=== PATIENT | female | born 1980 | race American Indian/Alaskan Native ===

== ENCOUNTER 2017-06-26 10:13 | Emergency (ER) | payer MEDICAID, OTHER ==
[2017-06-26 10:14] VITALS: BMI 29.4
--- NOTE | 2017-06-26 10:46 | ED PDOC ---
Arrival/HPI - General Chief Complaint: Flu-like Symptoms Time Seen by Provider: 06/26/17 10:30 Historian: Patient - History of Present Illness Narrative History of Present Illness (Text): 06/26/17 10:45 A 37 year old female, whose past medical history includes hypertension, Gout and Fibroids, presents to the emergency department complaining of body aches, cough and congestion that developed last night, for the past 2 days. Patient reports to taking Ibuprofen about three hours ago. Patient notes sick contacts at home. Patient denies any shortness of breath or any other complaints at this time. Symptom Onset: Sudden Symptom Course: Unchanged Activities at Onset: Rest Context: Home Past Medical History - Provider Review Nursing Documentation Reviewed: Yes - Past History Past History: No Previous - Infectious Disease Hx of Infectious Diseases: None - Tetanus Immunization Tetanus Immunization: Unknown - Past Medical History Past Medical History: No Previous - Cardiac Hx Cardiac Disorders: Yes Hx Hypertension: Yes - Pulmonary Hx Respiratory Disorders: Yes Hx Bronchitis: Yes - Neurological Hx Neurological Disorder: No - HEENT Hx HEENT Disorder: No - Renal Hx Renal Disorder: No - Endocrine/Metabolic Hx Endocrine Disorders: No - Hematological/Oncological Hx Blood Disorders: Yes Hx Anemia: Yes - Integumentary Hx Dermatological Disorder: No - Musculoskeletal/Rheumatological Hx Musculoskeletal Disorders: No Hx Falls: No Hx Gout: Yes - Gastrointestinal Hx Gastrointestinal Disorders: Yes (gastritis) Hx Gastroesophageal Reflux: Yes - Genitourinary/Gynecological Hx Genitourinary Disorders: No Other/Comment: cyst 2 years ago on left ovary, fibroids - Psychiatric Hx Psychophysiologic Disorder: Yes Hx Depression: Yes Hx Physical Abuse: No Hx Substance Use: Yes (cocaine last night) Other/Comment: substance abuse - Past Surgical History Past Surgical History: No Previous - Surgical History Other/Comment: endoscopy dx with gastritis - Anesthesia Hx Anesthesia: Yes Hx Anesthesia Reactions: No Hx Malignant Hyperthermia: No - Suicidal Assessment Feels Threatened In Home Enviroment: No Family/Social History - Physician Review Nursing Documentation Reviewed: Yes Family/Social History: No Known Family HX Smoking Status: Heavy Smoker > 10 Cigarettes Daily Hx Alcohol Use: Yes (vodka last night til 3am) Hx Substance Use: Yes (cocaine last night) Substance used: cocaine Hx Substance Use Treatment: Yes Allergies/Home Meds Allergies/Adverse Reactions: Allergies coconut oil Allergy (Verified 06/26/17 10:27) ANAPHYLAXIS calixto Allergy (Verified 06/26/17 10:27) ANAPHYLAXIS Review of Systems - Physician Review All systems were reviewed & negative as marked: Yes - Review of Systems Constitutional: Other (body aches) ENT: Sinus Congestion Respiratory: Cough. absent: SOB Physical Exam Vital Signs Reviewed: Yes Vital Signs Temp Pulse Resp BP Pulse Ox 06/26/17 10:24 100.4 F H 95 H 18 121/72 100 Temperature: Febrile Blood Pressure: Normal Pulse: Regular Respiratory Rate: Normal Appearance: Positive for: Well-Appearing, Non-Toxic, Uncomfortable Pain Distress: None Mental Status: Positive for: Alert and Oriented X 3 - Systems Exam Head: Present: Atraumatic, Normocephalic Pupils: Present: PERRL Extroacular Muscles: Present: EOMI Conjunctiva: Present: Normal Mouth: Present: Moist Mucous Membranes Pharnyx: Present: Other (oropharynx slightly injected) Nose (Internal): Present: Other (moderate upper respiratory congestion) Neck: Present: Normal Range of Motion Respiratory/Chest: Present: Clear to Auscultation, Good Air Exchange. No: Respiratory Distress, Accessory Muscle Use Cardiovascular: Present: Regular Rate and Rhythm, Normal S1, S2. No: Murmurs Abdomen: Present: Normal Bowel Sounds. No: Tenderness, Distention, Peritoneal Signs Back: Present: Normal Inspection Upper Extremity: Present: Normal Inspection. No: Cyanosis, Edema Lower Extremity: Present: Normal Inspection. No: Edema Neurological: Present: GCS=15, CN II-XII Intact, Speech Normal Skin: Present: Warm, Dry, Normal Color. No: Rashes Psychiatric: Present: Alert, Oriented x 3, Normal Insight, Normal Concentration Medical Decision Making ED Course and Treatment: 06/26/17 10:43 Impression: A 37 year old female with body aches, cough and congestion. Plan: -- chest xray -- labs -- Motrin, Toradol -- Reassess and disposition Prior Visits: Notes and results from previous visits were reviewed. Patient was last seen in the emergency department on 06/09/16 for evaluation of upper abdominal pain and vomiting. Progress Notes: 06/26/17 13:33 chest xray Creator : Pedro Luis Weiss MD IMPRESSION: No interval acute cardiopulmonary disease appreciated. - Lab Interpretations Lab Results: Lab Results 06/26/17 10:30: Influenza Typ A,B (EIA) Negative for flu a/b I have reviewed the lab results: Yes - RAD Interpretation Radiology Orders: 06/26/17 12:31 CHEST TWO VIEWS (PA/LAT) [RAD] Stat - Medication Orders Current Medication Orders: Discontinued Medications Ibuprofen (Motrin Tab) 600 mg PO STAT STA Stop: 06/26/17 10:39 Last Admin: 06/26/17 11:07 Dose: 600 mg MAR Pain/Vitals Document 06/26/17 11:07 SE (Rec: 06/26/17 11:[address] [id number]) Pain Reassessment Is This A Pain ReAssessment? No Sleep Is patient sleeping during reassessment? No Presence of Pain Presence of Pain Yes Pain Scale Used Pain Scale Used Numeric Ketorolac Tromethamine (Toradol) 60 mg IM STAT STA Stop: 06/26/17 12:21 Last Admin: 06/26/17 12:21 Dose: 60 mg MAR Pain Assessment Document 06/26/17 12:21 SE (Rec: 06/26/17 12:[address] [id number]) Pain Reassessment Is this a pain reassessment? No Sleep Is patient sleeping during reassessment? No Presence of Pain Presence of Pain Yes IM Administration Charges Document 06/26/17 12:21 SE (Rec: 06/26/17 12:[address] [facility] [id number]) Injection Site MAR Injection Site Right Gluteus Medius Charges for Administration # of IM Administrations 1 - Scribe Statement The provider has reviewed the documentation as recorded by the David Hyman Provider Scribe Attestation: All medical record entries made by the Scribe were at my direction and personally dictated by me. I have reviewed the chart and agree that the record accurately reflects my personal performance of the history, physical exam, medical decision making, and the department course for this patient. I have also personally directed, reviewed, and agree with the discharge instructions and disposition. Disposition/Present on Arrival - Present on Arrival Any Indicators Present on Arrival: No History of DVT/PE: No History of Uncontrolled Diabetes: No Urinary Catheter: No History of Decub. Ulcer: No History Surgical Site Infection Following: None - Disposition Have Diagnosis and Disposition been Completed?: No Diagnosis: URI (upper respiratory infection), Myalgia Disposition: HOME/ ROUTINE Disposition Time: 14:10 Patient Plan: Discharge Condition: STABLE Prescriptions: Indomethacin [Indocin] 25 mg PO TID PRN #15 cap PRN Reason: Pain, Moderate (4-7) Promethazine DM [Phenergan DM Syrup] 10 ml PO TID PRN #120 ml PRN Reason: Cough And Congestion traMADol [Ultram] 50 mg PO TID PRN #15 tab PRN Reason: Pain, Moderate (4-7) Forms: [facility] (Persian)
--- NOTE | 2017-06-26 13:29 | RAD ---
HISTORY: cough COMPARISON: Portable chest 03/31/2016. TECHNIQUE: Chest PA and lateral FINDINGS: LUNGS: No active pulmonary disease. PLEURA: No significant pleural effusion identified. No pneumothorax apparent. CARDIOVASCULAR: Normal. OSSEOUS STRUCTURES: No significant abnormalities. VISUALIZED UPPER ABDOMEN: Normal. OTHER FINDINGS: None. IMPRESSION: No interval acute cardiopulmonary disease appreciated.
[2017-06-26 14:15] VITALS: BP 125/68; PULSE 91; RESP 16; TEMP 99.6; O2SAT 98
== END 2017-06-26 14:15 | disposition home or self-care (01) ==
LOC: ED 10:13
DX: J06.9 Acute upper respiratory infection, unspecified (principal); M79.1 Myalgia; I10 Essential (primary) hypertension; F17.210 Nicotine dependence, cigarettes, uncomplicated
CPT/HCPCS: 71046; 87804; 96372; 99284; J1885

== ENCOUNTER 2017-06-28 15:19 | Inpatient (IN) | payer MEDICAID, OTHER ==
[2017-06-28 15:59] VITALS: BMI 27.4
[2017-06-28] MEDS ORDERED: Sodium Chloride 0.9% 500 ML IV STA (16:49)
--- NOTE | 2017-06-28 17:00 | ED PDOC ---
Arrival/HPI - General Chief Complaint: Shortness Of Breath Time Seen by Provider: 06/28/17 16:04 - History of Present Illness Narrative History of Present Illness (Text): 06/28/17 17:00 Pt is a 37 yo female with PMH of hypertension, gout, fibroids presents to Emergency department due to body aches, cough, and congestion. Pt states that she was recently at [facility] Emergency department for similar symptoms. At that time , influenza A and B was negative. Patient was treated symptomatically and discharged. Pt states that she did not fill her prescribed medications because she had similar medicine already at home. Pt states that her symptoms have worsened over the last 2 days. Pt symptoms included cough, sinus congestion, sore throat, body aches, fever, and chills. Pt admits to recent sick contacts. Pt denied chest pain, shortness of breath, nausea, vomiting, abdominal pain, headache, or dizziness. Past Medical History - Past History Past History: No Previous - Infectious Disease Hx of Infectious Diseases: None - Tetanus Immunization Tetanus Immunization: Unknown - Past Medical History Past Medical History: No Previous - Cardiac Hx Cardiac Disorders: Yes Hx Hypertension: Yes - Pulmonary Hx Respiratory Disorders: Yes Hx Bronchitis: Yes - Neurological Hx Neurological Disorder: No - HEENT Hx HEENT Disorder: No - Renal Hx Renal Disorder: No - Endocrine/Metabolic Hx Endocrine Disorders: No - Hematological/Oncological Hx Blood Disorders: Yes Hx Anemia: Yes - Integumentary Hx Dermatological Disorder: No - Musculoskeletal/Rheumatological Hx Musculoskeletal Disorders: No Hx Falls: No Hx Gout: Yes - Gastrointestinal Hx Gastrointestinal Disorders: Yes (gastritis) Hx Gastroesophageal Reflux: Yes - Genitourinary/Gynecological Hx Genitourinary Disorders: No Other/Comment: cyst 2 years ago on left ovary, fibroids - Psychiatric Hx Psychophysiologic Disorder: Yes Hx Depression: Yes Hx Physical Abuse: No Hx Substance Use: Yes (cocaine last night) Other/Comment: substance abuse - Past Surgical History Past Surgical History: No Previous - Surgical History Other/Comment: endoscopy dx with gastritis - Anesthesia Hx Anesthesia: Yes Hx Anesthesia Reactions: No Hx Malignant Hyperthermia: No - Suicidal Assessment Feels Threatened In Home Enviroment: No Family/Social History Family/Social History: No Known Family HX Smoking Status: Heavy Smoker > 10 Cigarettes Daily Hx Alcohol Use: Yes (vodka last night til 3am) Hx Substance Use: Yes (cocaine last night) Substance used: cocaine Hx Substance Use Treatment: Yes Allergies/Home Meds Allergies/Adverse Reactions: Allergies coconut oil Allergy (Verified 06/26/17 10:27) ANAPHYLAXIS calixto Allergy (Verified 06/26/17 10:27) ANAPHYLAXIS Review of Systems - Review of Systems Constitutional: Fatigue, Fevers Eyes: Normal ENT: Sore Throat, Rhinorrhea, Sinus Congestion Respiratory: Cough, Sputum Cardiovascular: Normal Gastrointestinal: Normal Musculoskeletal: Arthralgias Skin: Normal Neurological: Normal Endocrine: Normal Hemo/Lymphatic: Normal Psychiatric: Normal Physical Exam Vital Signs Temp Pulse Resp BP Pulse Ox 06/28/17 16:56 102.7 F H 06/28/17 16:32 20 100 06/28/17 16:31 102.4 F H 90 20 126/80 100 Temperature: Febrile Mental Status: Positive for: Alert and Oriented X 3 - Systems Exam Head: Present: Atraumatic, Normocephalic Extroacular Muscles: Present: EOMI Conjunctiva: Present: Normal Ears: Present: Normal Mouth: Present: Dry Pharnyx: Present: ERYTHEMA. No: EXUDATE, TONSILS ENLARGED, Peritonsilar Swelling, Uvular Deviation Nose (Internal): Present: Rhinorrhea Neck: Present: Lymphadenopathy (anterior) Respiratory/Chest: Present: Clear to Auscultation. No: Respiratory Distress, Wheezes, Rales, Rhonchi Cardiovascular: Present: Regular Rate and Rhythm, Normal S1, S2. No: Murmurs, Rub, Gallop Abdomen: No: Tenderness, Distention, Rebound, Guarding Upper Extremity: Present: Normal Inspection Lower Extremity: Present: Normal Inspection Neurological: Present: GCS=15 Skin: Present: Warm, Dry, Normal Color Psychiatric: Present: Alert, Oriented x 3 Medical Decision Making ED Course and Treatment: 06/28/17 17:05 Assessment: 37 yo F presents to Emergency department with cough, congestion, and fever will be evaluated for possible flu infection. Plan: - CBC - CMP - Influenza A/B - IVF - CXR - Tylenol 06/28/17 17:07 EKG showed NSR. 06/28/17 18:38 Hgb 7.2. Patient consented to blood transfusion. Type and crossmatched 2 units. On further questioning, patient states that her h/o fibroids causes heavy menses. 02/16/18 18:44 Influenza A/B negative. 06/28/17 19:[address] Vicente, she will accept patient under hospitalist service. - Lab Interpretations Lab Results: 06/28/17 17:20 06/28/17 17:20 Lab Results 06/28/17 17:20: Sodium 140, Potassium 3.6, Chloride 105, Carbon Dioxide 24, Anion Gap 14, BUN 7, Creatinine 1.0, Est GFR ( Amer) > 60, Est GFR (Non- Af Amer) > 60, Random Glucose 89, Calcium 9.5, Total Bilirubin 0.2, AST 28, ALT 25, Alkaline Phosphatase 36 L, Total Protein 7.3, Albumin 3.9, Globulin 3.4, Albumin/Globulin Ratio 1.1 06/28/17 17:20: Influenza Typ A,B (EIA) Negative for flu a/b 06/28/17 17:20: WBC 3.7 L D, RBC 4.21, Hgb 7.2 L, Hct 26.0 L, MCV 61.8 L, MCH 17.1 L, MCHC 27.7 L, RDW 21.3 H, Plt Count 276, MPV 9.0, Gran % 41.4 L, Lymph % (Auto) 39.2 H, Prentiss % (Auto) 18.1 H, Eos % (Auto) 0.5 L, Baso % (Auto) 0.8, Gran # 1.51, Lymph # (Auto) 1.4, Prentiss # (Auto) 0.7 H, Eos # (Auto) 0.0, Baso # ( Auto) 0.03 - RAD Interpretation Radiology Orders: 06/28/17 17:08 CXR [CHEST PORTABLE] [RAD] Stat - Medication Orders Current Medication Orders: Oseltamivir Phosphate (Tamiflu Cap) 75 mg PO BID CATHY PRN Reason: Protocol Stop: 07/03/17 19:14 Discontinued Medications Acetaminophen (Tylenol 325mg Tab) 650 mg PO STAT STA Stop: 06/28/17 16:54 Last Admin: 06/28/17 19:21 Dose: Azithromycin (Zithromax) 500 mg PO STAT STA PRN Reason: Protocol Stop: 06/28/17 19:16 Sodium Chloride (Sodium Chloride 0.9%) 500 mls @ 999 mls/hr IV .Q31M STA Stop: 06/28/17 17:19 Last Admin: 06/28/17 17:20 Dose: 999 mls/hr eMAR Start Stop Document 06/28/17 17:20 RD (Rec: 06/28/17 19:20 RD [id number]) Intravenous Solution Start Date 06/28/17 Start Time 17:20 End Date 06/28/17 End time 18:20 Total Infusion Time 60 Disposition/Present on Arrival - Present on Arrival Any Indicators Present on Arrival: No History of DVT/PE: No History of Uncontrolled Diabetes: No Urinary Catheter: No History of Decub. Ulcer: No History Surgical Site Infection Following: None - Disposition Have Diagnosis and Disposition been Completed?: Yes Diagnosis: Symptomatic anemia, Acute bronchitis Disposition Time: 19:27 Patient Plan: Admission Condition: FAIR Referrals: PCP,NO [Primary Care Provider] - Follow up with primary Forms: [employer] (Citizen Of [place])
[2017-06-28 17:38] LABS: BASO # 0.03 K/mm3 (0.0-2.0); BASO % 0.8 % (0.0-3.0); EOS % 0.5 % (1.5-5.0); GRAN # 1.51 (1.4-6.5); GRAN % 41.4 % (50.0-68.0); HEMOGLOBIN 7.2 g/dL (12.0-16.0); LYMPH # 1.4 (1.2-3.4); LYMPH % 39.2 % (22.0-35.0); MEAN CELL VOLUME 61.8 fl (80.0-105.0); MEAN CORPUSCULAR HEMOGLOBIN 17.1 pg (25.0-35.0); MEAN CORPUSCULAR HGB CONC 27.7 g/dl (31.0-37.0); MONO # 0.7 (0.1-0.6); MONO % 18.1 % (1.0-6.0); RBC 4.21 10^6/uL (3.5-6.1); RED CELL DISTRIBUTION WIDTH 21.3 % (11.5-14.5); WHITE BLOOD COUNT 3.7 10^3/ul (4.5-11.0)
[2017-06-28 17:46] LABS: ALB/GLOB RATIO 1.1 (1.1-1.8); ALBUMIN 3.9 g/dL (3.0-4.8); ALT/SGPT 25 U/L (7-56); AST/SGOT 28 U/L (14-36); BLOOD UREA NITROGEN 7 mg/dL (7-21); CALCIUM 9.5 mg/dL (8.4-10.5); GFR AFRICAN-AMERICAN > 60; GFR NON-AFRICAN AMERICAN > 60
--- NOTE | 2017-06-28 18:58 | RAD ---
HISTORY: cough, congestion COMPARISON: No prior. FINDINGS: LUNGS: The interstitial markings are increased and coarsened with a few scattered peribronchial cuffing changes. Rule out sequela of reactive/ inflammatory where disease or viral illness. PLEURA: No significant pleural effusion identified, no pneumothorax apparent. CARDIOVASCULAR: Normal. OSSEOUS STRUCTURES: No significant abnormalities. VISUALIZED UPPER ABDOMEN: Normal. OTHER FINDINGS: None. IMPRESSION: The interstitial markings are increased and coarsened with a few scattered peribronchial cuffing changes. Rule out sequela of reactive/ inflammatory where disease or viral illness..
--- NOTE | 2017-06-28 20:54 | CP.PCM.HP ---
History of Present Illness - History of Present Illness History of Present Illness: This patient is a 37 year old female with a PMHx of HTN, Gout, Gastritis, and Fibroids, who presents complaining of worsening flu-like symptoms including generalized body aches, fevers, productive cough (yellow sputum), and shortness of breath. Patient presented to the ED with similar symptoms two days ago. Rapid Flu test was negative and patient was sent home with prescriptions for symptomatic treatment. Since then, her symptoms have worsen including worsening shortness of breath. Patient does admit to sick contacts, metrorrhagia, dysmenorrhea, increasing abdominal pain, and chest pain while coughing, and headache while coughing. She denies any nausea, vomiting, changes in bowel habits, blood in stool, melana, and urinary symptoms. ROS POSITIVES: generalized body aches, fevers, productive cough (yellow sputum), SOB, metrorrhagia, dysmenorrhea, inceasing abdominal pain, and chest pain while coughing. 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 Patient has been having 2 painful heavy periods a month for the past 3 months. Present on Admission - Present on Admission Any Indicators Present on Admission: No Review of Systems - Review of Systems Review of Systems: As per HPI Past Patient History - Infectious Disease Hx of Infectious Diseases: None - Tetanus Immunizations Tetanus Immunization: Unknown - Past Social History Smoking Status: Heavy Smoker > 10 Cigarettes Daily - CARDIAC Hx Cardiac Disorders: Yes Hx Hypertension: Yes - PULMONARY Hx Respiratory Disorders: Yes Hx Bronchitis: Yes - NEUROLOGICAL Hx Neurological Disorder: No - HEENT Hx HEENT Problems: No - RENAL Hx Chronic Kidney Disease: No - ENDOCRINE/METABOLIC Hx Endocrine Disorders: No - HEMATOLOGICAL/ONCOLOGICAL Hx Blood Disorders: Yes Hx Anemia: Yes - INTEGUMENTARY Hx Dermatological Problems: No - MUSCULOSKELETAL/RHEUMATOLOGICAL Hx Musculoskeletal Disorders: No Hx Falls: No Hx Gout: Yes - GASTROINTESTINAL Hx Gastrointestinal Disorders: Yes (gastritis) Hx Gastroesophageal Reflux: Yes - GENITOURINARY/GYNECOLOGICAL Hx Genitourinary Disorders: No Other/Comment: cyst 2 years ago on left ovary, fibroids - PSYCHIATRIC Hx Psychophysiologic Disorder: Yes Hx Depression: Yes Hx Physical Abuse: No Hx Substance Use: Yes (cocaine last night) Other/Comment: substance abuse - SURGICAL HISTORY Other/Comment: endoscopy dx with gastritis - ANESTHESIA Hx Anesthesia: Yes Hx Anesthesia Reactions: No Hx Malignant Hyperthermia: No Meds Allergies/Adverse Reactions: Allergies Allergy/AdvReac Type Severity Reaction Status Date / Time coconut oil Allergy ANAPHYLAXIS Verified 06/26/17 10:27 calixto Allergy ANAPHYLAXIS Verified 06/26/17 10:27 Physical Exam - Constitutional Appears: Toxic, In Acute Distress - Head Exam Head Exam: ATRAUMATIC, NORMAL INSPECTION, NORMOCEPHALIC - Eye Exam Eye Exam: EOMI, Normal appearance. absent: Scleral icterus - ENT Exam ENT Exam: Mucous Membranes Moist - Neck Exam Neck exam: Positive for: Lymphadenopathy - Respiratory Exam Respiratory Exam: Clear to Auscultation Bilateral. absent: Accessory Muscle Use , Decreased Breath Sounds, Rales, Rhonchi, Wheezes, Stridor - Cardiovascular Exam Cardiovascular Exam: RRR, +S1, +S2 - GI/Abdominal Exam GI & Abdominal Exam: Soft. absent: Tenderness - Extremities Exam Extremities exam: Positive for: normal capillary refill, pedal pulses present. Negative for: pedal edema - Neurological Exam Neurological exam: Alert, Oriented x3 - Psychiatric Exam Psychiatric exam: Normal Affect, Normal Mood - Skin Skin Exam: Dry, Intact, Normal Color, Warm Results - Vital Signs Recent Vital Signs: Last Vital Signs Temp 102.7 F H 06/28/17 16:56 Pulse 90 06/28/17 16:31 Resp 20 06/28/17 16:32 BP 126/80 06/28/17 16:31 Pulse Ox 100 06/28/17 16:32 - Labs Result Diagrams: 06/28/17 17:20 06/28/17 17:20 Assessment & Plan - Assessment and Plan (Free Text) Assessment: 37 year old female with a PMHx of HTN, Gout, Gastritis, and Fibroids, who presents complaining of worsening flu-like symptoms including generalized body aches, fevers, productive cough (yellow sputum), and shortness of breath. HgB in the ED was found 2 be 7.2. Admitted for evaluation and treatment of symptomatic anemia and influenza. Plan: Symptomatic Microcytic Anemia: Likely due to heavy menses 2 Units of PRBC's ordered in the ED Pre-transfusion Anemia studies show low Iron and Iron Sat. Consider starting Iron Supplementation post transfusion. Patient should up with [employer] outpatient to address fibroids and heavy/ irregular menses which is causing her anemia. NS @ 100/hr. Influenza CXR (Admission): The interstitial markings are increased and coarsened with a few scattered peribronchial cuffing changes. Rule out sequela of reactive/ inflammatory where disease or viral illness. Azithromycin 500 IV Daily Tamiflu BID. Consider stopping. May be no benefit due to symptoms for over 48 hours Tessalon Perles 100 PO TID for Cough Tylenol PRN Fluids - NS @ 100/hr Proph Protonix/SCD's Patient seen and discussed with Attending (Dr. Vicente) Dolores Valente, PGY1
[2017-06-28] MEDS ORDERED: Sodium Chloride 0.9% 1,000 ML IV SCH (21:15)
[2017-06-28 21:48] LABS: IRON 10 ug/dL (45-180)
[2017-06-28 21:58] LABS: % IRON SATURATION 2 % (20-55); TOTAL IRON BINDING CAPACITY 479 ug/dL (265-497)
[2017-06-29] MEDS: Pantoprazole 40 mg EC Tab PO SCH (06:09)
[2017-06-29 07:07] LABS: BASO # 0.04 K/mm3 (0.0-2.0); BASO % 0.8 % (0.0-3.0); EOS # 0.1 (0.0-0.7); EOS % 1.2 % (1.5-5.0); GRAN # 2.42 (1.4-6.5); GRAN % 50.3 % (50.0-68.0); HEMOGLOBIN 8.3 g/dL (12.0-16.0); LYMPH # 1.8 (1.2-3.4); LYMPH % 38.2 % (22.0-35.0); MEAN CELL VOLUME 65.8 fl (80.0-105.0); MEAN CORPUSCULAR HEMOGLOBIN 18.8 pg (25.0-35.0); MEAN CORPUSCULAR HGB CONC 28.6 g/dl (31.0-37.0); MONO # 0.5 (0.1-0.6); MONO % 9.5 % (1.0-6.0); RBC 4.41 10^6/uL (3.5-6.1); RED CELL DISTRIBUTION WIDTH 25.1 % (11.5-14.5); WHITE BLOOD COUNT 4.8 10^3/ul (4.5-11.0)
[2017-06-29 07:28] LABS: BLOOD UREA NITROGEN 9 mg/dL (7-21); GFR AFRICAN-AMERICAN > 60; GFR NON-AFRICAN AMERICAN > 60
[2017-06-29 07:29] LABS: ALBUMIN 3.3 g/dL (3.0-4.8); ALT/SGPT 28 U/L (7-56); AST/SGOT 28 U/L (14-36); CALCIUM 8.9 mg/dL (8.4-10.5)
[2017-06-29] MEDS ORDERED: Potassium Chloride 20 mEq ER Tab PO ONE (07:41)
[2017-06-29] MEDS: Albuterol-Ipratrop 3 mg / 0.5 (3 ml) UD IH SCH ×3 (08:27→21:00)
--- NOTE | 2017-06-29 10:10 | CARD ---
APPROVED REPORT EKG Measurement Heart [id number] <Conclusion> Normal sinus rhythm NSSTW changes No change
[2017-06-29 13:29] LABS: FOLATE 13.7 ng/mL
[2017-06-29 13:41] LABS: FERRITIN 7.6 ng/mL
--- NOTE | 2017-06-29 14:24 | CP.PCM.PN ---
<Nate Horton - Last Filed: 06/30/17 06:11> Subjective - Date & Time of Evaluation Date of Evaluation: 06/29/17 Time of Evaluation: 09:15 - Subjective Subjective: Patient seen and evaluated at bedside. States she returned to the ED for flu like symptoms that did not resolve, but worsened. Patient still admits to body aches, cough, abdominal pain associated with cough. Objective - Vital Signs/Intake and Output Vital Signs (last 24 hours): Temp Pulse Resp BP Pulse Ox 100.2 F H 60 20 142/95 H 99 06/29/17 07:30 06/29/17 07:30 06/29/17 07:30 06/29/17 07:30 06/29/17 07:30 Intake and Output: 06/29/17 06/29/17 06:59 18:59 Intake Total 685 325 Balance 685 325 - Medications Medications: Current Medications Acetaminophen (Tylenol 325mg Tab) 650 mg PO Q6H PRN PRN Reason: Fever >100.4 F Last Admin: 06/29/17 06:09 Dose: 650 mg Albuterol/Ipratropium (Duoneb 3 Mg/0.5 Mg (3 Ml) Ud) 3 ml IH [id number] [facility] Last Admin: 06/29/17 13:53 Dose: 3 ml Benzonatate (Tessalon Perles) 100 mg PO TID CATHY Last Admin: 06/29/17 11:17 Dose: 100 mg Azithromycin (Zithromax 500mg In Ns) 500 mg in 250 mls @ 167 mls/hr IVPB DAILY CATHY PRN Reason: Protocol Sodium Chloride (Sodium Chloride 0.9%) 1,000 mls @ 100 mls/hr IV .Q10H CATHY Ibuprofen (Motrin Tab) 600 mg PO Q6H PRN PRN Reason: Pain, moderate (4-7) Last Admin: 06/29/17 11:17 Dose: 600 mg Oseltamivir Phosphate (Tamiflu Cap) 75 mg PO BID CATHY PRN Reason: Protocol Stop: 07/03/17 19:14 Last Admin: 06/29/17 11:17 Dose: 75 mg Pantoprazole Sodium (Protonix Ec Tab) 40 mg PO 0600 [facility] Last Admin: 06/29/17 06:09 Dose: 40 mg - Labs Labs: 06/29/17 06:30 06/29/17 06:30 - Constitutional Appears: Non-toxic - Head Exam Head Exam: ATRAUMATIC, NORMAL INSPECTION, NORMOCEPHALIC - Eye Exam Eye Exam: EOMI, Normal appearance - ENT Exam ENT Exam: Mucous Membranes Moist, Normal Exam - Neck Exam Neck Exam: Normal Inspection - Respiratory Exam Respiratory Exam: Clear to Ausculation Bilateral, NORMAL BREATHING PATTERN. absent: Accessory Muscle Use, Chest Wall Tenderness, Decreased Breath Sounds, Rhonchi, Wheezes, Respiratory Distress, Stridor - Cardiovascular Exam Cardiovascular Exam: REGULAR RHYTHM, +S1, +S2 - GI/Abdominal Exam GI & Abdominal Exam: Soft, Normal Bowel Sounds. absent: Tenderness - Extremities Exam Extremities Exam: Normal Inspection - Back Exam Back Exam: NORMAL INSPECTION - Neurological Exam Neurological Exam: Alert, Awake, Oriented x3 - Psychiatric Exam Psychiatric exam: Normal Affect, Normal Mood - Skin Skin Exam: Intact, Normal Color, Warm Assessment and Plan - Assessment and Plan (Free Text) Assessment: 37 year old female with a PMHx of HTN, Gout, Gastritis, and Fibroids, who presents complaining of worsening flu-like symptoms including generalized body aches, fevers, productive cough (yellow sputum), and shortness of breath. HgB in the ED was found 2 be 7.2. Admitted for evaluation and treatment of symptomatic anemia and influenza. Plan: Symptomatic Microcytic Anemia: -Patient endorses a long history of anemia -Likely due to heavy menses -2 Units of PRBC's ordered in the ED -Pre-transfusion Anemia studies show low Iron and Iron Sat. -Will consider starting Iron Supplementation -Patient should up with [facility] outpatient to address fibroids and heavy/ irregular menses which is causing her anemia. Influenza -CXR reveals increase in lung interstitial markings as well as coarsening with a few scattered peribronchial cuffing changes. Rule out sequelae of reactive/ inflammatory where disease or viral illness. -Continue azithromycin 500 IV Daily -Tamiflu BID. Patient tested negative for rapid flu however still presents with flu like symptoms. Will continue tamiflu for now and await influenza A/B antibody test results -Continue with Tessalon Perles -Continue with tylenol PRN for body aches -NS@100/hr Proph Protonix/SCD's Patient seen and discussed with Dr. Cinthia Horton PGY1 <Fritz Vicente B - Last Filed: 06/30/17 18:13> Objective - Vital Signs/Intake and Output Vital Signs (last 24 hours): Temp Pulse Resp BP Pulse Ox 98 F 65 20 131/93 H 100 06/30/17 17:53 06/30/17 17:53 06/30/17 17:53 06/30/17 17:53 06/30/17 17:53 Intake and Output: 06/30/17 06/30/17 06:59 18:59 Intake Total 180 360 Balance 180 360 - Medications Medications: Current Medications Acetaminophen (Tylenol 325mg Tab) 650 mg PO Q6H PRN PRN Reason: Fever >100.4 F Last Admin: 06/29/17 22:34 Dose: 650 mg Albuterol/Ipratropium (Duoneb 3 Mg/0.5 Mg (3 Ml) Ud) 3 ml IH [id number] [facility] Last Admin: 06/30/17 14:25 Dose: Not Given Docusate Sodium (Colace) 100 mg PO DAILY [facility] Last Admin: 06/30/17 10:57 Dose: Not Given Ferrous Sulfate (Feosol) 324 mg PO BID [facility] Last Admin: 06/30/17 10:55 Dose: 324 mg Guaifenesin/Dextromethorphan (Robitussin Dm) 10 ml PO Q4H PRN PRN Reason: Cough Azithromycin (Zithromax 500mg In Ns) 500 mg in 250 mls @ 167 mls/hr IVPB DAILY CATHY PRN Reason: Protocol Last Admin: 06/30/17 10:59 Dose: 167 mls/hr Sodium Chloride (Sodium Chloride 0.9%) 1,000 mls @ 100 mls/hr IV .Q10H [facility] Oseltamivir Phosphate (Tamiflu Cap) 75 mg PO BID CATHY PRN Reason: Protocol Stop: 07/03/17 19:14 Last Admin: 06/30/17 10:55 Dose: 75 mg Pantoprazole Sodium (Protonix Ec Tab) 40 mg PO 0600 [facility] Last Admin: 06/30/17 05:26 Dose: 40 mg Tramadol HCl (Ultram) 50 mg PO TID [facility] Last Admin: 06/30/17 14:32 Dose: 50 mg - Labs Labs: 06/30/17 05:00 06/30/17 07:00 Attending/Attestation - Attestation I have personally seen and examined this patient.: Yes I have fully participated in the care of the patient.: Yes I have reviewed all pertinent clinical information, including history, physical exam and plan: Yes Notes (Text): I have seen and examined the patient at bedside. Agree with the above note with the following additions/ exceptions: Briefly this is 37 year old female with history of HTN, gout, gastritis, gout and fibroids who was admitted for evaluation of fever, cough, yellow mucous and dyspnea. There was no leukocytosis. Procal pending. Influenza negative. CXR revealed increase in lung interstitial markings as well as coarsening with a few scattered peribronchial cuffing changes. Continue robitussin, tamiflu and zithromax. Follow up on influenza titres. She also has microcytic anemia due to iron deficiency. Will start on po iron at the time of discharge. Upon discharge patient will follow up with obgyn and PMD of choice. Dr Fritz Vicente
[2017-06-29] MEDS: Azithromycin 500MG/NS 250ml 500 MG/250 ML BAG IVPB SCH (17:10)
[2017-06-29] MEDS ORDERED: guaiFENesin-Codeine 100-10mg/5ml Syrup (5 ml) UD PO STA (23:25)
[2017-06-30] MEDS: Pantoprazole 40 mg EC Tab PO SCH (05:26)
[2017-06-30 07:43] LABS: BASO # 0.03 K/mm3 (0.0-2.0); BASO % 0.5 % (0.0-3.0); EOS # 0.1 (0.0-0.7); EOS % 2.2 % (1.5-5.0); GRAN # 3.47 (1.4-6.5); GRAN % 57.7 % (50.0-68.0); HEMOGLOBIN 8.2 g/dL (12.0-16.0); LYMPH # 1.9 (1.2-3.4); LYMPH % 30.8 % (22.0-35.0); MEAN CELL VOLUME 65.7 fl (80.0-105.0); MEAN CORPUSCULAR HEMOGLOBIN 18.5 pg (25.0-35.0); MEAN CORPUSCULAR HGB CONC 28.2 g/dl (31.0-37.0); MEAN PLATELET VOLUME 9.3 fl (7.0-11.0); MONO # 0.5 (0.1-0.6); MONO % 8.8 % (1.0-6.0); RBC 4.43 10^6/uL (3.5-6.1); RED CELL DISTRIBUTION WIDTH 25.1 % (11.5-14.5)
[2017-06-30 07:47] VITALS: RESP 20
[2017-06-30] MEDS ORDERED: Potassium Chloride 20 mEq ER Tab PO ONE ×2 (07:47→10:54)
[2017-06-30 08:24] LABS: ALBUMIN 3.2 g/dL (3.0-4.8); ALT/SGPT 22 U/L (7-56); AST/SGOT 29 U/L (14-36); BLOOD UREA NITROGEN 7 mg/dL (7-21); CALCIUM 9.2 mg/dL (8.4-10.5); GFR AFRICAN-AMERICAN > 60; GFR NON-AFRICAN AMERICAN > 60
[2017-06-30] MEDS ORDERED: guaiFENesin DM 200 mg-20 mg/10 ml UD PO PRN ×2 (08:38→17:13)
--- NOTE | 2017-06-30 08:42 | CP.PCM.PN ---
<Nate Horton - Last Filed: 06/30/17 17:17> Subjective - Date & Time of Evaluation Date of Evaluation: 06/30/17 Time of Evaluation: 08:40 - Subjective Subjective: Patient seen and examined at bedside. Patient states her cough has become more productive, now producing clear sputum with a tinge of red. Patient states she has rib pain due to coughing. Admits to body aches, headaches. Denies nausea, vomiting, dysuria. Admits to constipation from home since Saturday. Patient's abdominal pain also due to menses which started overnight. Objective - Vital Signs/Intake and Output Vital Signs (last 24 hours): Temp Pulse Resp BP Pulse Ox 98.6 F 70 20 122/85 100 06/30/17 07:30 06/30/17 07:30 06/30/17 07:30 06/30/17 07:30 06/30/17 07:30 Intake and Output: 06/30/17 06/30/17 06:59 18:59 Intake Total 180 Balance 180 - Medications Medications: Current Medications Acetaminophen (Tylenol 325mg Tab) 650 mg PO Q6H PRN PRN Reason: Fever >100.4 F Last Admin: 06/29/17 22:34 Dose: 650 mg Albuterol/Ipratropium (Duoneb 3 Mg/0.5 Mg (3 Ml) Ud) 3 ml IH [id number] [facility] Last Admin: 06/29/17 21:00 Dose: Not Given Guaifenesin/Dextromethorphan (Robitussin Dm) 10 ml PO Q4H PRN PRN Reason: Cough Azithromycin (Zithromax 500mg In Ns) 500 mg in 250 mls @ 167 mls/hr IVPB DAILY CATHY PRN Reason: Protocol Last Admin: 06/29/17 17:10 Dose: 167 mls/hr Sodium Chloride (Sodium Chloride 0.9%) 1,000 mls @ 100 mls/hr IV .Q10H CATHY Ibuprofen (Motrin Tab) 600 mg PO Q6H PRN PRN Reason: Pain, moderate (4-7) Last Admin: 06/29/17 11:17 Dose: 600 mg Oseltamivir Phosphate (Tamiflu Cap) 75 mg PO BID CATHY PRN Reason: Protocol Stop: 07/03/17 19:14 Last Admin: 06/29/17 17:13 Dose: 75 mg Pantoprazole Sodium (Protonix Ec Tab) 40 mg PO 0600 [facility] Last Admin: 06/30/17 05:26 Dose: 40 mg - Labs Labs: 06/30/17 05:00 06/30/17 07:00 - Constitutional Appears: Non-toxic, No Acute Distress - Head Exam Head Exam: ATRAUMATIC, NORMAL INSPECTION, NORMOCEPHALIC - Eye Exam Eye Exam: EOMI, Normal appearance - ENT Exam ENT Exam: Mucous Membranes Moist - Neck Exam Neck Exam: Normal Inspection - Respiratory Exam Respiratory Exam: Clear to Ausculation Bilateral, NORMAL BREATHING PATTERN. absent: Accessory Muscle Use, Rales, Rhonchi, Wheezes, Respiratory Distress - Cardiovascular Exam Cardiovascular Exam: REGULAR RHYTHM, +S1, +S2 - GI/Abdominal Exam GI & Abdominal Exam: Soft, Normal Bowel Sounds - Back Exam Back Exam: NORMAL INSPECTION - Neurological Exam Neurological Exam: Alert, Awake, Oriented x3 - Psychiatric Exam Psychiatric exam: Normal Affect, Normal Mood - Skin Skin Exam: Intact, Normal Color, Warm Assessment and Plan - Assessment and Plan (Free Text) Assessment: 37 year old female with a PMHx of HTN, Gout, Gastritis, and Fibroids, who presents complaining of worsening flu-like symptoms including generalized body aches, fevers, productive cough (yellow sputum now clear with tinge ), and shortness of breath. HgB in the ED was found 2 be 7.2. Admitted for evaluation and treatment of symptomatic anemia and influenza. Plan: Iron deficiency anemia: -Patient endorses a long history of anemia -Likely due to heavy menses -2 Units of PRBC's ordered in the ED -Pre-transfusion Anemia studies show low Iron and Iron Sat. -Iron Supplementation started -Patient should up with [facility] outpatient to address fibroids and heavy/ irregular menses which is causing her anemia; patient currently menstruating Menstrual cramping -Tramadol started Influenza R/O -CXR reveals increase in lung interstitial markings as well as coarsening with a few scattered peribronchial cuffing changes. Rule out sequelae of reactive/ inflammatory where disease or viral illness. -Continue azithromycin 500 IV Daily -Tamiflu BID. Patient tested negative for rapid flu however still presents with flu like symptoms. Will continue tamiflu for now and await influenza A/B antibody test results -Robitussin started since no relief with tessalon perles. -Continue with tylenol PRN for body aches. Will refrain from motrin due to history of gastritis. -NS@100/hr Constipation -Will give colace and monitor Proph Protonix/SCD's Patient seen and discussed with Dr. Cinthia Horton PGY1 <Fritz Vicente - Last Filed: 06/30/17 18:15> Objective - Vital Signs/Intake and Output Vital Signs (last 24 hours): Temp Pulse Resp BP Pulse Ox 98 F 65 20 131/93 H 100 06/30/17 17:53 06/30/17 17:53 06/30/17 17:53 06/30/17 17:53 06/30/17 17:53 Intake and Output: 06/30/17 06/30/17 06:59 18:59 Intake Total 180 360 Balance 180 360 - Medications Medications: Current Medications Acetaminophen (Tylenol 325mg Tab) 650 mg PO Q6H PRN PRN Reason: Fever >100.4 F Last Admin: 06/29/17 22:34 Dose: 650 mg Albuterol/Ipratropium (Duoneb 3 Mg/0.5 Mg (3 Ml) Ud) 3 ml IH [id number] [facility] Last Admin: 06/30/17 14:25 Dose: Not Given Docusate Sodium (Colace) 100 mg PO DAILY [facility] Last Admin: 06/30/17 10:57 Dose: Not Given Ferrous Sulfate (Feosol) 324 mg PO BID [facility] Last Admin: 06/30/17 10:55 Dose: 324 mg Guaifenesin/Dextromethorphan (Robitussin Dm) 10 ml PO Q4H PRN PRN Reason: Cough Azithromycin (Zithromax 500mg In Ns) 500 mg in 250 mls @ 167 mls/hr IVPB DAILY CATHY PRN Reason: Protocol Last Admin: 06/30/17 10:59 Dose: 167 mls/hr Sodium Chloride (Sodium Chloride 0.9%) 1,000 mls @ 100 mls/hr IV .Q10H [facility] Oseltamivir Phosphate (Tamiflu Cap) 75 mg PO BID CATHY PRN Reason: Protocol Stop: 07/03/17 19:14 Last Admin: 06/30/17 10:55 Dose: 75 mg Pantoprazole Sodium (Protonix Ec Tab) 40 mg PO 0600 [facility] Last Admin: 06/30/17 05:26 Dose: 40 mg Tramadol HCl (Ultram) 50 mg PO TID [facility] Last Admin: 06/30/17 14:32 Dose: 50 mg - Labs Labs: 06/30/17 05:00 06/30/17 07:00 Attending/Attestation - Attestation I have personally seen and examined this patient.: Yes I have fully participated in the care of the patient.: Yes I have reviewed all pertinent clinical information, including history, physical exam and plan: Yes Notes (Text): I have seen and examined the patient at bedside. Agree with the above note with the following additions/ exceptions: Briefly this is 37 year old female with history of HTN, gout, gastritis, gout and fibroids who was admitted for evaluation of fever, cough, yellow mucous and dyspnea. There was no leukocytosis. Procal pending. Influenza negative. CXR revealed increase in lung interstitial markings as well as coarsening with a few scattered peribronchial cuffing changes. Patient states that she continues to have cough with purulent mucous. She was not able to sleep last night due to excessive coughing. Will do CT chest. Continue robitussin, tamiflu and zithromax. Follow up on influenza titres. She also has microcytic anemia due to iron deficiency. Will start on po iron at the time of discharge. Upon discharge patient will follow up with obgyn for menorrhagia and PMD of choice. Dr Fritz Vicente
[2017-06-30] MEDS ORDERED: guaiFENesin-Codeine 100-10mg/5ml Syrup (5 ml) UD PO PRN (08:46)
[2017-06-30] MEDS: Albuterol-Ipratrop 3 mg / 0.5 (3 ml) UD IH SCH ×3 (09:37→21:05)
[2017-06-30] MEDS: Azithromycin 500MG/NS 250ml 500 MG/250 ML BAG IVPB SCH (10:59)
[2017-06-30 11:06] LABS: BARBITURATES, UR NEGATIVE (NEGATIVE); BENZODIAZEPINES, UR NEGATIVE (NEGATIVE); OPIATES, UR POSITIVE (NEGATIVE); PHENCYCLIDINE, UR NEGATIVE (NEGATIVE)
[2017-06-30 11:17] LABS: PH,URINE 6.5 (4.7-8.0); URINE BILIRUBIN NEGATIVE (NEGATIVE); URINE BLOOD NEGATIVE (NEGATIVE); URINE GLUCOSE (UA) NEGATIVE (NEGATIVE); URINE LEUKOCYTE ESTERASE NEGATIVE Leu/uL (NEGATIVE); URINE NITRATE NEGATIVE (NEGATIVE); URINE PROTEIN TRACE mg/dL (<30 mg/dL)
[2017-06-30 11:27] LABS: URINE APPEARANCE SL CLOUDY (CLEAR); URINE COLOR YELLOW (YELLOW)
[2017-06-30 11:28] LABS: HCG,QUALITATIVE URINE NEGATIVE (NEGATIVE)
[2017-06-30 12:10] LABS: URINE RBC 0 - 2 /hpf (0-2); URINE WBC 0 - 2 /hpf (0-6)
[2017-06-30 12:11] LABS: URINE BACTERIA MOD (NEG)
--- NOTE | 2017-06-30 13:46 | CT ---
PROCEDURE: CT Chest without contrast HISTORY: flu symptoms COMPARISON: Chest radiograph dated 06/28/2017. Comparison also made with CTA of the chest dated 02/03/2014. . TECHNIQUE: Contiguous axial images were obtained through the chest without intravenous contrast enhancement. Sagittal and coronal reconstructions were performed. Radiation dose (DLP): 279 the comparison made with.18 mGy-cm. This CT exam was performed using one or more of the following dose reduction techniques: Automated exposure control, adjustment of the mA and/or kV according to patient size, and/or use of iterative reconstruction technique. FINDINGS: LUNGS: There are multiple varying size note relatively small nodular opacity seen throughout the right upper middle and lower lobes on. Findings could represent localized pneumonitis and or developing pneumonia. Mild left basilar passive/dependent type atelectasis with some linear scarring however left lung is otherwise clear. MEDIASTINUM: Heart size within range of normal. No significant pericardial effusion. Ascending thoracic aorta measures approximately 3.1 cm and descending thoracic aorta measures approximately 2.46 cm. Pulmonary trunk measures approximately 2.66 cm. No significant mediastinal adenopathy. Evaluation for hilar adenopathy is somewhat limited due to the lack of circulating intravenous contrast material. Central airways are midline and patent. No large central endoluminal lesions. PLEURA: No effusion. No evidence of pneumothorax BONES: Minor degenerative spondylosis the of the thoracic spine compression fractures at a several levels. No acute compression fractures no retropulsed fragments. UPPER ABDOMEN: Grossly unremarkable. OTHER FINDINGS: None. IMPRESSION: There are multiple varying size though relatively small nodular opacities seen scattered throughout the right upper middle and lower lobes. Findings may represent localized pneumonitis or developing infiltrates. No evidence of effusion or pneumothorax.
[2017-07-01] MEDS: Albuterol-Ipratrop 3 mg / 0.5 (3 ml) UD IH SCH ×3 (04:00→13:38)
--- NOTE | 2017-07-01 06:19 | CP.PCM.DIS ---
<Nate Horton - Last Filed: 07/02/17 02:23> Provider - Provider Date of Admission: 06/28/17 19:20 Attending physician: Fritz Vicente MD Primary care physician: NO PRIMARY CARE PROVIDER Time Spent in preparation of Discharge (in minutes): 45 Diagnosis - Discharge Diagnosis (1) Influenza Status: Acute (2) Acute bronchitis Status: Acute Hospital Course - Lab Results Lab Results: Most Recent Lab Values WBC 6.0 10^3/ul (4.5-11.0) D 06/30/17 05:00 RBC 4.43 10^6/uL (3.5-6.1) 06/30/17 05:00 Hgb 8.2 g/dL (12.0-16.0) L 06/30/17 05:00 Hct 29.1 % (36.0-48.0) L 06/30/17 05:00 MCV 65.7 fl (80.0-105.0) L 06/30/17 05:00 MCH 18.5 pg (25.0-35.0) L 06/30/17 05:00 MCHC 28.2 g/dl (31.0-37.0) L 06/30/17 05:00 RDW 25.1 % (11.5-14.5) H 06/30/17 05:00 Plt Count 231 10^3/uL (120.0-450.0) 06/30/17 05:00 MPV 9.3 fl (7.0-11.0) 06/30/17 05:00 Gran % 57.7 % (50.0-68.0) 06/30/17 05:00 Lymph % (Auto) 30.8 % (22.0-35.0) 06/30/17 05:00 [place] % (Auto) 8.8 % (1.0-6.0) H 06/30/17 05:00 Eos % (Auto) 2.2 % (1.5-5.0) 06/30/17 05:00 Baso % (Auto) 0.5 % (0.0-3.0) 06/30/17 05:00 Gran # 3.47 (1.4-6.5) 06/30/17 05:00 Lymph # (Auto) 1.9 (1.2-3.4) 06/30/17 05:00 [place] # (Auto) 0.5 (0.1-0.6) 06/30/17 05:00 Eos # (Auto) 0.1 (0.0-0.7) 06/30/17 05:00 Baso # (Auto) 0.03 K/mm3 (0.0-2.0) 06/30/17 05:00 Retic Count 0.57 % (0.5-1.5) 06/28/17 17:20 Sodium 143 mmol/L (132-148) 06/30/17 07:00 Potassium 3.9 mmol/L (3.6-5.0) 06/30/17 07:00 Chloride 110 mmol/L (98-107) H 06/30/17 07:00 Carbon Dioxide 23 mmol/L (21-33) 06/30/17 07:00 Anion Gap 14 (10-20) 06/30/17 07:00 BUN 7 mg/dL (7-21) 06/30/17 07:00 Creatinine 0.8 mg/dl (0.7-1.2) 06/30/17 07:00 Est GFR ( Amer) > 60 06/30/17 07:00 Est GFR (Non-Af Amer) > 60 06/30/17 07:00 Random Glucose 80 mg/dL (70-110) 06/30/17 07:00 Calcium 9.2 mg/dL (8.4-10.5) 06/30/17 07:00 Iron 10 ug/dL (45-180) L 06/28/17 17:20 TIBC 479 ug/dL (265-497) 06/28/17 17:20 % Saturation 2 % (20-55) L 06/28/17 17:20 Transferrin 381.31 mg/dL (206-381) H 06/28/17 17:20 Ferritin 7.6 ng/mL 06/28/17 17:20 Total Bilirubin 0.2 mg/dL (0.2-1.3) 06/30/17 07:00 AST 29 U/L (14-36) 06/30/17 07:00 ALT 22 U/L (7-56) 06/30/17 07:00 Alkaline Phosphatase 29 U/L (38-126) L 06/30/17 07:00 Troponin I < 0.01 ng/mL 06/29/17 00:20 Total Protein 6.4 g/dL (5.8-8.3) 06/30/17 07:00 Albumin 3.2 g/dL (3.0-4.8) 06/30/17 07:00 Globulin 3.2 gm/dL 06/30/17 07:00 Albumin/Globulin Ratio 1.0 (1.1-1.8) L 06/30/17 07:00 Vitamin B12 754 pg/mL (239-931) 06/28/17 17:20 Folate 13.7 ng/mL 06/28/17 17:20 Urine Color Yellow (YELLOW) 06/30/17 10:41 Urine Appearance Sl cloudy (CLEAR) 06/30/17 10:41 Urine pH 6.5 (4.7-8.0) 06/30/17 10:41 Ur Specific [place] 1.025 (1.005-1.035) 06/30/17 10:41 Urine Protein Trace mg/dL (<30 mg/dL) H 06/30/17 10:41 Urine Glucose (UA) Negative mg/dL (NEGATIVE) 06/30/17 10:41 Urine Ketones Negative mg/dL (NEGATIVE) 06/30/17 10:41 Urine Blood Negative (NEGATIVE) 06/30/17 10:41 Urine Nitrate Negative (NEGATIVE) 06/30/17 10:41 Urine Bilirubin Negative (NEGATIVE) 06/30/17 10:41 Urine Urobilinogen 1.0 E.U./dL (<1 E.U./dL) H 06/30/17 10:41 Ur Leukocyte Esterase Negative Humberto/uL (NEGATIVE) 06/30/17 10:41 Urine RBC 0 - 2 /hpf (0-2) 06/30/17 10:41 Urine WBC 0 - 2 /hpf (0-6) 06/30/17 10:41 Ur Epithelial Cells 10 - 12 /hpf (0-5) 06/30/17 10:41 Urine Bacteria Mod (NEG) 06/30/17 10:41 Urine HCG, Qual Negative (NEGATIVE) 06/30/17 10:41 Urine Opiates Screen Positive (NEGATIVE) H 06/30/17 10:41 Urine Methadone Screen Negative (NEGATIVE) 06/30/17 10:41 Ur Barbiturates Screen Negative (NEGATIVE) 06/30/17 10:41 Ur Phencyclidine Scrn Negative (NEGATIVE) 06/30/17 10:41 Ur Amphetamines Screen Negative (NEGATIVE) 06/30/17 10:41 U Benzodiazepines Scrn Negative (NEGATIVE) 06/30/17 10:41 U Oth Cocaine Metabols Negative (NEGATIVE) 06/30/17 10:41 U Cannabinoids Screen Negative (NEGATIVE) 06/30/17 10:41 Influenza Typ A,B (EIA) Negative for flu a/b (NEGATIVE) 06/28/17 17:20 Blood Type O POSITIVE 06/28/17 19:05 Antibody Screen Negative 06/28/17 19:05 Crossmatch See Detail 06/28/17 19:05 BBK History Checked Patient has bt 06/28/17 19:05 - Hospital Course Hospital Course: Patient is a 37 year old female with a history of iron deficiency anemia, uterine fibroids, cocaine abuse who presented with complaints of flu-like symptoms which included body aches, headaches, productive cough, and vomiting. Patient was originally admitted to the emergency department two days prior to being admitted to the hospital with similar symptoms which were not relieved with medication. During course of stay patient was found to be anemic, iron studies revealed iron deficiency anemia which was supplemented with iron supplements during course of hospital stay. Radioimaging revealed pneumonitis due to pneumonia. Rapid flu was performed which was negative. During course of hospital stay, patient's symptoms continued to improve. Patient endorsed left leg pain for which lower extremity doppler was ordered and negative for deep vein thrombosis. Patient was discharged on antibiotics and iron supplementation as well as instructed to follow up with her PMD and OBGYN regarding heavy menstrual bleeding and iron deficiency anemia. Importance of iron rich diet was also discussed. Patient was in agreement with plan and discharged. Case discussed and reviewed with Dr. Bravo Horton PGY1 Discharge Exam - Head Exam Head Exam: ATRAUMATIC, NORMAL INSPECTION, NORMOCEPHALIC - Eye Exam Eye Exam: EOMI, Normal appearance - ENT Exam ENT Exam: Mucous Membranes Moist - Neck Exam Neck exam: Normal Inspection - Respiratory Exam Respiratory Exam: Clear to PA & Lateral, NORMAL BREATHING PATTERN. absent: Rales, Rhonchi, Wheezes - Cardiovascular Exam Cardiovascular Exam: REGULAR RHYTHM, +S1, +S2 - GI/Abdominal Exam GI & Abdominal Exam: Normal Bowel Sounds, Unremarkable - Rectal Exam Rectal Exam: NORMAL INSPECTION - Neurological Exam Neurological exam: Alert, CN II-XII Intact, Oriented x3 - Psychiatric Exam Psychiatric exam: Normal Affect, Normal Mood - Skin Skin Exam: Intact, Normal Color, Warm Discharge Plan - Discharge Medications Prescriptions: Albuterol/Ipratropium [Duoneb 3 mg/0.5 mg (3 ml) UD] 3 ml IH [id number] #1 neb Azithromycin [Zithromax] 250 mg PO DAILY 4 Days #4 tab Docusate [Colace] 100 mg PO DAILY 14 Days #14 cap Ferrous Sulfate [Feosol] 324 mg PO BID 14 Days #28 ect guaiFENesin/Dextromethorphan [Robitussin DM] 10 ml PO Q4H PRN #1 bottle PRN Reason: Cough Oseltamivir [Tamiflu Cap] 75 mg PO BID 3 Days #6 cap Pantoprazole [Protonix EC Tab] 40 mg PO 0600 14 Days #14 ect - Follow Up Plan Condition: FAIR Disposition: HOME/ ROUTINE Instructions: Anemia of Chronic Disease, Smoking: Not Just Harmful to Your Lungs and Heart, Dangers of Secondhand Smoke, Flu, Adult (DC), Anemia Caused by Low Iron, Adult (DC), Pneumonia, Adult (DC), Influenza Virus Vaccine ( Recombinant) Additional Instructions: 1. Please follow up with your PMD within 3-5 days. 2. Please go to your pharmacy and fill prescriptions and take as prescribed. 3. Do not hesitate to return to the emergency department if symptoms worsen or return. 4. Chronic iron deficiency anemia will start iron supplement, also maintain an iron rich diet. 5. Follow up with OBGYN for menorrhagia Referrals: [facility] at [facility] [place] [Outside] <Sherman Cordon - Last Filed: 07/02/17 07:52> Provider - Provider Date of Admission: 06/28/17 19:20 Attending physician: Sherman Cordon MD Primary care physician: NO PRIMARY CARE PROVIDER Hospital Course - Lab Results Lab Results: Most Recent Lab Values WBC 4.3 10^3/ul (4.5-11.0) L D 07/01/17 07:15 RBC 4.26 10^6/uL (3.5-6.1) 07/01/17 07:15 Hgb 8.0 g/dL (12.0-16.0) L 07/01/17 07:15 Hct 27.8 % (36.0-48.0) L 07/01/17 07:15 MCV 65.3 fl (80.0-105.0) L 07/01/17 07:15 MCH 18.8 pg (25.0-35.0) L 07/01/17 07:15 MCHC 28.8 g/dl (31.0-37.0) L 07/01/17 07:15 RDW 25.4 % (11.5-14.5) H 07/01/17 07:15 Plt Count 204 10^3/uL (120.0-450.0) 07/01/17 07:15 MPV 9.1 fl (7.0-11.0) 07/01/17 07:15 Gran % 40.5 % (50.0-68.0) L 07/01/17 07:15 Lymph % (Auto) 47.7 % (22.0-35.0) H 07/01/17 07:15 [place] % (Auto) 9.3 % (1.0-6.0) H 07/01/17 07:15 Eos % (Auto) 1.6 % (1.5-5.0) 07/01/17 07:15 Baso % (Auto) 0.9 % (0.0-3.0) 07/01/17 07:15 Gran # 1.75 (1.4-6.5) 07/01/17 07:15 Lymph # (Auto) 2.1 (1.2-3.4) 07/01/17 07:15 [place] # (Auto) 0.4 (0.1-0.6) 07/01/17 07:15 Eos # (Auto) 0.1 (0.0-0.7) 07/01/17 07:15 Baso # (Auto) 0.04 K/mm3 (0.0-2.0) 07/01/17 07:15 Retic Count 0.57 % (0.5-1.5) 06/28/17 17:20 Sodium 141 mmol/L (132-148) 07/01/17 07:15 Potassium 3.9 mmol/L (3.6-5.0) 07/01/17 07:15 Chloride 107 mmol/L (98-107) 07/01/17 07:15 Carbon Dioxide 23 mmol/L (21-33) 07/01/17 07:15 Anion Gap 15 (10-20) 07/01/17 07:15 BUN 8 mg/dL (7-21) 07/01/17 07:15 Creatinine 0.7 mg/dl (0.7-1.2) 07/01/17 07:15 Est GFR ( Amer) > 60 07/01/17 07:15 Est GFR (Non-Af Amer) > 60 07/01/17 07:15 Random Glucose 91 mg/dL (70-110) 07/01/17 07:15 Calcium 9.0 mg/dL (8.4-10.5) 07/01/17 07:15 Iron 10 ug/dL (45-180) L 06/28/17 17:20 TIBC 479 ug/dL (265-497) 06/28/17 17:20 % Saturation 2 % (20-55) L 06/28/17 17:20 Transferrin 381.31 mg/dL (206-381) H 06/28/17 17:20 Ferritin 7.6 ng/mL 06/28/17 17:20 Total Bilirubin 0.3 mg/dL (0.2-1.3) 07/01/17 07:15 AST 26 U/L (14-36) 07/01/17 07:15 ALT 25 U/L (7-56) 07/01/17 07:15 Alkaline Phosphatase 27 U/L (38-126) L 07/01/17 07:15 Troponin I < 0.01 ng/mL 06/29/17 00:20 Total Protein 6.5 g/dL (5.8-8.3) 07/01/17 07:15 Albumin 3.3 g/dL (3.0-4.8) 07/01/17 07:15 Globulin 3.2 gm/dL 07/01/17 07:15 Albumin/Globulin Ratio 1.0 (1.1-1.8) L 07/01/17 07:15 Vitamin B12 754 pg/mL (239-931) 06/28/17 17:20 Folate 13.7 ng/mL 06/28/17 17:20 Urine Color Yellow (YELLOW) 06/30/17 10:41 Urine Appearance Sl cloudy (CLEAR) 06/30/17 10:41 Urine pH 6.5 (4.7-8.0) 06/30/17 10:41 Ur Specific [place] 1.025 (1.005-1.035) 06/30/17 10:41 Urine Protein Trace mg/dL (<30 mg/dL) H 06/30/17 10:41 Urine Glucose (UA) Negative mg/dL (NEGATIVE) 06/30/17 10:41 Urine Ketones Negative mg/dL (NEGATIVE) 06/30/17 10:41 Urine Blood Negative (NEGATIVE) 06/30/17 10:41 Urine Nitrate Negative (NEGATIVE) 06/30/17 10:41 Urine Bilirubin Negative (NEGATIVE) 06/30/17 10:41 Urine Urobilinogen 1.0 E.U./dL (<1 E.U./dL) H 06/30/17 10:41 Ur Leukocyte Esterase Negative Humberto/uL (NEGATIVE) 06/30/17 10:41 Urine RBC 0 - 2 /hpf (0-2) 06/30/17 10:41 Urine WBC 0 - 2 /hpf (0-6) 06/30/17 10:41 Ur Epithelial Cells 10 - 12 /hpf (0-5) 06/30/17 10:41 Urine Bacteria Mod (NEG) 06/30/17 10:41 Urine HCG, Qual Negative (NEGATIVE) 06/30/17 10:41 Urine Opiates Screen Positive (NEGATIVE) H 06/30/17 10:41 Urine Methadone Screen Negative (NEGATIVE) 06/30/17 10:41 Ur Barbiturates Screen Negative (NEGATIVE) 06/30/17 10:41 Ur Phencyclidine Scrn Negative (NEGATIVE) 06/30/17 10:41 Ur Amphetamines Screen Negative (NEGATIVE) 06/30/17 10:41 U Benzodiazepines Scrn Negative (NEGATIVE) 06/30/17 10:41 U Oth Cocaine Metabols Negative (NEGATIVE) 06/30/17 10:41 U Cannabinoids Screen Negative (NEGATIVE) 06/30/17 10:41 Influenza Typ A,B (EIA) Negative for flu a/b (NEGATIVE) 06/28/17 17:20 Blood Type O POSITIVE 06/28/17 19:05 Antibody Screen Negative 06/28/17 19:05 Crossmatch See Detail 06/28/17 19:05 BBK History Checked Patient has bt 06/28/17 19:05 Attending/Attestation - Attestation I have personally seen and examined this patient.: Yes I have fully participated in the care of the patient.: Yes I have reviewed all pertinent clinical information, including history, physical exam and plan: Yes Notes (Text): 07/02/17 07:45 Attending note ; Patient seen and examined with resident. Patient is a 37 year old female with history of hypertension, gout, gastritis, anemia and fibroids who was admitted for evaluation of fever, cough, yellow mucous and dyspnea. Influenza negative. CXR revealed increase in lung interstitial markings as well as coarsening with a few scattered peribronchial cuffing changes. CT chest showed localized pneumonitis . Currently patient is afebrile and nontoxic . Ambulating without difficulty .not on oxygen .tolerating diet well . Treated with robitussin, tamiflu , rocephin and zithromax. She also has microcytic anemia due to iron deficiency. Started on by mouth iron. Needs outpatient [facility] follow-up.
[2017-07-01] MEDS: Pantoprazole 40 mg EC Tab PO SCH (06:26)
[2017-07-01 07:25] LABS: BASO # 0.04 K/mm3 (0.0-2.0); BASO % 0.9 % (0.0-3.0); EOS # 0.1 (0.0-0.7); EOS % 1.6 % (1.5-5.0); GRAN # 1.75 (1.4-6.5); GRAN % 40.5 % (50.0-68.0); LYMPH # 2.1 (1.2-3.4); LYMPH % 47.7 % (22.0-35.0); MEAN CELL VOLUME 65.3 fl (80.0-105.0); MEAN CORPUSCULAR HEMOGLOBIN 18.8 pg (25.0-35.0); MEAN CORPUSCULAR HGB CONC 28.8 g/dl (31.0-37.0); MEAN PLATELET VOLUME 9.1 fl (7.0-11.0); MONO # 0.4 (0.1-0.6); MONO % 9.3 % (1.0-6.0); RBC 4.26 10^6/uL (3.5-6.1); RED CELL DISTRIBUTION WIDTH 25.4 % (11.5-14.5); WHITE BLOOD COUNT 4.3 10^3/ul (4.5-11.0)
[2017-07-01 07:54] LABS: ALBUMIN 3.3 g/dL (3.0-4.8); ALT/SGPT 25 U/L (7-56); AST/SGOT 26 U/L (14-36); BLOOD UREA NITROGEN 8 mg/dL (7-21); GFR AFRICAN-AMERICAN > 60; GFR NON-AFRICAN AMERICAN > 60
[2017-07-01 08:52] VITALS: BP 119/78; PULSE 68; TEMP 98.6; O2SAT 100
--- NOTE | 2017-07-01 09:55 | US ---
PROCEDURE: Right lower extremity venous US HISTORY: Leg pain and swelling. Evaluate for DVT. PHYSICIAN(S): Iban Dave M.D. TECHNIQUE: Duplex sonography and color-flow Doppler with graded compression were used to evaluate the deep venous system of the right lower extremity. FINDINGS: The visualized deep venous system of the right lower extremity is sonographically normal and compressible. Normal waveforms and augmentation are seen. There is no sonographic evidence for deep venous thrombosis in the visualized segments of the right lower extremity. IMPRESSION: 1. No sonographic evidence for deep venous thrombosis in the visualized segments of the right lower extremity.
[2017-07-01] MEDS: Azithromycin 500MG/NS 250ml 500 MG/250 ML BAG IVPB SCH (10:03)
== END 2017-07-01 15:23 | disposition home or self-care (01) | DRG 90 ==
LOC: ED 15:19 → ERH 19:20 → 5RNO 22:41
PROVIDERS: ADMIT Hospitalist; ATTEND Internal Medicine
PROC: 30233N1 Transfusion of Nonautologous Red Blood Cells into Peripheral Vein, Percutaneous Approach (ICD-10-PCS; principal; 2017-06-28)
DX: J11.00 Influenza due to unidentified influenza virus with unspecified type of pneumonia (principal); J20.9 Acute bronchitis, unspecified; D50.9 Iron deficiency anemia, unspecified; K59.00 Constipation, unspecified; K21.9 Gastro-esophageal reflux disease without esophagitis; I10 Essential (primary) hypertension; D25.9 Leiomyoma of uterus, unspecified; M10.9 Gout, unspecified; K29.70 Gastritis, unspecified, without bleeding; N92.0 Excessive and frequent menstruation with regular cycle; Z87.891 Personal history of nicotine dependence

== ENCOUNTER 2018-01-02 07:04 | Emergency (ER) | payer MEDICAID ==
[2018-01-02 07:05] VITALS: BMI 27.4
[2018-01-02 07:46] VITALS: RESP 17
[2018-01-02 07:54] LABS: BASO # 0.04 K/mm3 (0.0-2.0); BASO % 0.6 % (0.0-3.0); EOS # 0.1 (0.0-0.7); EOS % 1.8 % (1.5-5.0); GRAN # 3.68 (1.4-6.5); GRAN % 55.1 % (50.0-68.0); LYMPH # 2.2 (1.2-3.4); LYMPH % 33.1 % (22.0-35.0); MEAN CELL VOLUME 62.6 fl (80.0-105.0); MEAN CORPUSCULAR HEMOGLOBIN 18.1 pg (25.0-35.0); MEAN PLATELET VOLUME 9.5 fl (7.0-11.0); MONO # 0.6 (0.1-0.6); MONO % 9.4 % (1.0-6.0); RBC 4.41 10^6/uL (3.5-6.1); RED CELL DISTRIBUTION WIDTH 21.2 % (11.5-14.5); WHITE BLOOD COUNT 6.7 10^3/ul (4.5-11.0)
[2018-01-02 08:00] LABS: ALB/GLOB RATIO 1.3 (1.1-1.8); ALBUMIN 4.2 g/dL (3.0-4.8); ALT/SGPT 19 U/L (7-56); AST/SGOT 55 U/L (14-36); BLOOD UREA NITROGEN 16 mg/dL (7-21); CALCIUM 9.4 mg/dL (8.4-10.5); GFR NON-AFRICAN AMERICAN > 60; LIPASE 103 U/L (23-300)
--- NOTE | 2018-01-02 08:06 | ED PDOC ---
Arrival/HPI - General Chief Complaint: GI Problem Time Seen by Provider: 01/02/18 07:17 Historian: Patient - History of Present Illness Narrative History of Present Illness (Text): 01/02/18 07:20 A 37 year old female, whose past medical history includes anemia, hypertension, gout, and fibroids, presents to the emergency department complaining of lower abdominal pain with nausea/vomiting starting approximately 9 hours ago. Patient reports taking Motrin 800 mg, but has had no relief of symptoms. She mentions also experiencing lower back pain, stating having associated "shocking stabs of pain radiating from lower back down to lower extremities." Patient denies any hematuria, dysuria, vaginal discharge/bleeding, any urinary symptoms, or any other complaints at this time. No PMD Time/Duration: Other (symptoms began approximately 9 hours ago.) Symptom Onset: Sudden Symptom Course: Unchanged Past Medical History - Provider Review Nursing Documentation Reviewed: Yes - Past History Past History: No Previous - Infectious Disease Hx of Infectious Diseases: None - Tetanus Immunization Tetanus Immunization: Unknown - Past Medical History Past Medical History: No Previous - Cardiac Hx Cardiac Disorders: Yes Hx Hypertension: Yes - Pulmonary Hx Respiratory Disorders: Yes Hx Bronchitis: Yes - Neurological Hx Neurological Disorder: No - HEENT Hx HEENT Disorder: No - Renal Hx Renal Disorder: No - Endocrine/Metabolic Hx Endocrine Disorders: No - Hematological/Oncological Hx Blood Disorders: Yes Hx Anemia: Yes - Integumentary Hx Dermatological Disorder: No - Musculoskeletal/Rheumatological Hx Musculoskeletal Disorders: Yes Hx Gout: Yes - Gastrointestinal Hx Gastrointestinal Disorders: Yes Hx Gastroesophageal Reflux: Yes - Genitourinary/Gynecological Hx Genitourinary Disorders: No Other/Comment: cyst 2 years ago on left ovary, fibroids - Psychiatric Hx Psychophysiologic Disorder: Yes Hx Depression: Yes Hx Substance Use: No Other/Comment: substance abuse - Past Surgical History Past Surgical History: No Previous - Surgical History Other/Comment: endoscopy dx with gastritis - Anesthesia Hx Anesthesia: Yes Hx Anesthesia Reactions: No Hx Malignant Hyperthermia: No - Suicidal Assessment Feels Threatened In Home Enviroment: No Family/Social History - Physician Review Nursing Documentation Reviewed: Yes Family/Social History: No Known Family HX Smoking Status: Heavy Smoker > 10 Cigarettes Daily Hx Alcohol Use: Yes Frequency of alcohol use: Socially Hx Substance Use: No Substance used: cocaine Hx Substance Use Treatment: Yes Allergies/Home Meds Allergies/Adverse Reactions: Allergies coconut oil Allergy (Verified 01/02/18 07:14) ANAPHYLAXIS calixto Allergy (Verified 01/02/18 07:14) ANAPHYLAXIS Review of Systems - Physician Review All systems were reviewed & negative as marked: Yes - Review of Systems Gastrointestinal: Abdominal Pain (lower region), Nausea, Vomiting Genitourinary Female: absent: Dysuria, Frequency, Hematuria, Urine Output Changes, Vaginal Bleeding, Vaginal Discharge Musculoskeletal: Back Pain (lower region, mentions experiencing "shocking stabs of pain radiating from lower back down to lower extremities.") Physical Exam - Physical Exam Narrative Physical Exam (Text): Gen: VS reviewed, alert, well developed, well nourished, nontoxic, mild distress. ENT: normal pharynx. Eye: EOMI, PERRL. Neck: no JVD, supple, no adenopathy. CV: regular rate, regular rhythm, no rubs, no murmur, no gallops, S1, S2, pulses equal and strong. Pulm: no distress, clear to auscultation, no wheeze, no rhonchi, breath sounds equal, no rales. Abd: diffuse lower abdominal tenderness, with guarding, no rebound, no rigidity , normal bowel sounds. Ext: no edema. Skin: good color, no rash, no cyanosis. Psych: responds appropriately to questions, normal affect. Neuro: oriented x 3, CN2-12 intact grossly, motor intact, sensation intact. Back: no CVA tenderness. Vital Signs Reviewed: Yes Vital Signs Temp Pulse Resp BP Pulse Ox 01/02/18 09:45 96 H 17 136/88 98 01/02/18 07:36 99.4 F 104 H 17 144/96 H 100 Temperature: Afebrile Blood Pressure: Normal Pulse: Regular Respiratory Rate: Normal Appearance: Positive for: Uncomfortable Pain Distress: Moderate Mental Status: Positive for: Alert and Oriented X 3 Medical Decision Making ED Course and Treatment: 01/02/18 07:25 Impression: 37 [place] old female with lower abdominal pain with nausea/vomiting. Physical exam shows diffuse lower abdominal tenderness with guarding, no rebound /rigidity; no CVA tenderness; no other acute findings on examination. Plan: -- Transvaginal Ultrasound -- Labs -- POC urine Test -- Tylenol -- Toradol -- Zofran -- Urinalysis -- Reassess and disposition Prior Visits: Notes and results from previous visits were reviewed. Patient was last seen in the emergency department on 06/28/2017 for body aches, cough, and congestion. Patient was admitted for symptomatic anemia and acute bronchitis. Progress Notes: 01/02/2018 10:19 Transvaginal Ultrasound IMPRESSION: 1. Mildly enlarged fibroid uterus with non submucous in location. All appear sub serosal with some pedunculated. 2. 1.4 cm right adnexal paraovarian cyst. Dictator: Pedro Luis Woodward MD 01/02/2018 10:49 Abd/Pelvis CT IMPRESSION: No evidence of urolithiasis. No acute intra-abdominal findings. Dictator: Anmol Hernandez MD 01/02/18 11:44 patient feels ok for discharge and appears stable for dc. will tx for uti. patient informed to follow up with customer service dispatcher for further eval of uterine fibroids. patient understands and is agreeable to plan. - Lab Interpretations Lab Results: 01/02/18 07:25 01/02/18 07:25 Lab Results 01/02/18 09:00: Urine Opiates Screen Negative, Urine Methadone Screen Negative, Ur Barbiturates Screen Negative, Ur Phencyclidine Scrn Negative, Ur Amphetamines Screen Negative, U Benzodiazepines Scrn Negative, U Oth Cocaine Metabols Negative, U Cannabinoids Screen Negative 01/02/18 07:25: Urine Color Red, Urine Appearance Bloody, Urine pH 7.0, Ur Specific [place] 1.010, Urine Protein >=300 H, Urine Glucose (UA) Negative, Urine Ketones Trace H, Urine Blood Large H, Urine Nitrate Positive H, Urine Bilirubin Negative, Urine Urobilinogen 1.0 H, Ur Leukocyte Esterase Moderate H, Urine RBC 25 - 30, Urine WBC 10 - 15, Ur Epithelial Cells 6 - 8, Urine Bacteria Many, Urine Other [place] 01/02/18 07:25: Sodium 141, Potassium 4.4, Chloride 106, Carbon Dioxide 24, Anion Gap 15, BUN 16, Creatinine 0.8, Est GFR ( Amer) > 60, Est GFR (Non- Af Amer) > 60, Random Glucose 102, Calcium 9.4, Total Bilirubin 0.4, AST 55 H D , ALT 19, Alkaline Phosphatase 34 L D, Total Protein 7.5, Albumin 4.2, Globulin 3.3, Albumin/Globulin Ratio 1.3, Lipase 103 01/02/18 07:25: WBC 6.7 D, RBC 4.41, Hgb 8.0 L, Hct 27.6 L, MCV 62.6 L, MCH 18.1 L, MCHC 29.0 L, RDW 21.2 H, Plt Count 298, MPV 9.5, Gran % 55.1, Lymph % ( Auto) 33.1, [place] % (Auto) 9.4 H, Eos % (Auto) 1.8, Baso % (Auto) 0.6, Gran # 3.68, Lymph # (Auto) 2.2, [place] # (Auto) 0.6, Eos # (Auto) 0.1, Baso # (Auto) 0.04 I have reviewed the lab results: Yes - RAD Interpretation Radiology Orders: 01/02/18 07:44 TRANSVAGINAL [US] Stat 01/02/18 09:52 ABDOMEN & PELVIS [ABD & PELVIS W/O PO OR IV CONT] [CT] Stat - Medication Orders Current Medication Orders: Discontinued Medications Acetaminophen (Tylenol 325mg Tab) 975 mg PO STAT STA Stop: 01/02/18 07:45 Last Admin: 01/02/18 07:49 Dose: 975 mg MAR Pain/Vitals Document 01/02/18 07:49 [facility] (Rec: 01/02/18 07:50 [facility] [id number]) Pain Reassessment Is This A Pain ReAssessment? No Sleep Is patient sleeping during reassessment? No Presence of Pain Presence of Pain Yes Pain Scale Used Pain Scale Used Numeric Location Left, Right or Bilateral Bilateral Upper or Lower Lower Pain Location Body Site Abdomen Description Cramping Intensity 5 Scale Used Numeric Fluconazole (Diflucan) 150 mg PO STAT STA PRN Reason: Protocol Stop: 01/02/18 10:17 Last Admin: 01/02/18 11:02 Dose: 150 mg Ketorolac Tromethamine (Toradol) 30 mg IVP STAT STA Stop: 01/02/18 07:45 Last Admin: 01/02/18 07:50 Dose: 30 mg MAR Pain Assessment Document 01/02/18 07:50 [facility] (Rec: 01/02/18 07:50 [facility] [id number]) Pain Reassessment Is this a pain reassessment? No Sleep Is patient sleeping during reassessment? No Presence of Pain Presence of Pain Yes Pain Scale Used Pain Scale Used Numeric Location Left, Right or Bilateral Bilateral Upper or Lower Lower Pain Location Body Site Abdomen Description Description Cramping Intensity of Pain at present 5 IVP Administration Document 01/02/18 07:50 [facility] (Rec: 01/02/18 07:50 [facility] [id number]) Charges for Administration # of IVP Administrations 1 Ondansetron HCl (Zofran Inj) 4 mg IVP STAT STA Stop: 01/02/18 07:43 Last Admin: 01/02/18 07:57 Dose: 4 mg IVP Administration Document 01/02/18 07:57 [facility] (Rec: 01/02/18 07:57 [facility] [id number]) Charges for Administration # of IVP Administrations 1 Oxycodone/Acetaminophen (Percocet 5/325 Mg Tab) 2 tab PO STAT STA Stop: 01/02/18 09:52 Last Admin: 01/02/18 10:18 Dose: 2 tab MAR Pain Assessment Document 01/02/18 10:18 [facility] (Rec: 01/02/18 10:18 [facility] [id number]) Pain Reassessment Is this a pain reassessment? Yes Sleep Is patient sleeping during reassessment? Yes Pain Scale Used Pain Scale Used Numeric Location Left, Right or Bilateral Bilateral Upper or Lower Lower Pain Location Body Site Abdomen Description Description Constant Intensity of Pain at present 7 - Scribe Statement The provider has reviewed the documentation as recorded by the David Brown Provider Scribe Attestation: All medical record entries made by the David were at my direction and personally dictated by me. I have reviewed the chart and agree that the record accurately reflects my personal performance of the history, physical exam, medical decision making, and the department course for this patient. I have also personally directed, reviewed, and agree with the discharge instructions and disposition. Disposition/Present on Arrival - Present on Arrival Any Indicators Present on Arrival: No History of DVT/PE: No History of Uncontrolled Diabetes: No Urinary Catheter: No History of Decub. Ulcer: No History Surgical Site Infection Following: None - Disposition Have Diagnosis and Disposition been Completed?: Yes Diagnosis: UTI (urinary tract infection), Dysmenorrhea, Uterine fibroid, Yeast UTI Disposition: HOME/ ROUTINE Disposition Time: 11:45 Patient Plan: Discharge Condition: STABLE Discharge Instructions (ExitCare): Urinary Tract Infections in Adults, Uterine Fibroids (DC), Painful Periods Print Language: UKRAINIAN Additional Instructions: Return for any new or worsening symptoms. Follow up with a med surg nurse as soon as possible. BOB SANTILLAN, thank you for letting us take care of you today. Your provider was Dajuan Watts MD and you were treated for urinary tract infection and painful menstrual cycle with uterine fibroids. The emergency medical care you received today was directed at your acute symptoms. If you were prescribed any medication, please fill it and take as directed. It may take several days for your symptoms to resolve. Return to the Emergency Department if your symptoms worsen, do not improve, or if you have any other problems. Please contact your doctor or call one of the physicians/clinics you have been referred to that are listed on the Patient Visit Information form that is included in your discharge packet. Bring any paperwork you were given at discharge with you along with any medications you are taking to your follow up visit. Our treatment cannot replace ongoing medical care by a primary care provider outside of the emergency department. Thank you for allowing the [facility] team to be part of your care today. If you had an X-Ray or CT scan: A Radiologist will review the ED reading if any change in treatment is needed we will contact you. If you had a blood, urine, or wound culture: It will take several days for the results, if any change in treatment is needed we will contact you. If you had an STI test: It will take 48 hours for the results. Please call after 1 week if you have not heard back. Prescriptions: Nitrofurantoin Macrocrystals [Macrobid] 100 mg PO BID 7 Days #14 cap oxyCODONE/Acetaminophen [Percocet 5/325 mg Tab] 1 ea PO QID #20 tab Sennosides/Docusate Sodium [Colace 2-in-1 Tablet] 2 each PO BID 7 Days #14 tablet Forms: [employer] (Latvian)
[2018-01-02 08:21] LABS: URINE BILIRUBIN NEGATIVE (NEGATIVE); URINE BLOOD LARGE (NEGATIVE); URINE GLUCOSE (UA) NEGATIVE (NEGATIVE); URINE LEUKOCYTE ESTERASE MODERATE Leu/uL (NEGATIVE); URINE PROTEIN >=300 mg/dL (<30 mg/dL)
[2018-01-02 08:22] LABS: URINE APPEARANCE BLOODY (CLEAR); URINE COLOR RED (YELLOW)
[2018-01-02 08:23] LABS: URINE RBC 25 - 30 /hpf (0-2)
[2018-01-02 08:24] LABS: URINE BACTERIA MANY (NEG)
[2018-01-02 09:49] LABS: BARBITURATES, UR NEGATIVE (NEGATIVE); BENZODIAZEPINES, UR NEGATIVE (NEGATIVE); OPIATES, UR NEGATIVE (NEGATIVE); PHENCYCLIDINE, UR NEGATIVE (NEGATIVE)
[2018-01-02] MEDS ORDERED: Oxycodone/Acetaminophen 5/325 mg Tab PO STA (09:51)
--- NOTE | 2018-01-02 10:21 | US ---
Date of service: 01/02/2018 HISTORY: pelvic pain, torsion COMPARISON: None available. TECHNIQUE: Transabdominal and transvaginal pelvic ultrasound was performed with longitudinal and transverse images submitted for interpretation. FINDINGS: UTERUS: Measures 10.8 x 6.8 x 5.9 cm. A sub serosal fibroid is partially exophytic appearing hypoechoic measuring 2.5 x 2.3 x 2.2 cm and the high anterior fundus. A 2nd much smaller sub serosal fibroid is identified at the high anterior fundus as well at the midline measuring 1.0 x 0.8 x 1.1 cm. A 3rd fibroid is pedunculated lateral to the mid fundus measuring 2.0 x 2.1 x 3.1 cm. Fourth posterior fundal pedunculated sub serosal fibroid measures 2.8 x 2.3 x 2.4 cm. Finally, a partially degenerated slightly pedunculated anterior fundal fibroid measures 2.4 x 2.1 x 2.2 cm ENDOMETRIUM: Measures 4.9 mm in diameter. Trace fluid is seen in the endometrial cavity. CERVIX: No cervical abnormality identified. RIGHT OVARY: Measures 2.4 x 1.0 x 2.4 cm. No solid mass. Normal flow. A small parovarian simple cyst is seen in the right adnexal compartment measure 1.4 x 1.0 x 1.1 cm. LEFT OVARY: Measures 3.1 x 2.1 x 2.6 cm. No solid mass. Normal flow. FREE FLUID: No significant free fluid noted. OTHER FINDINGS: None. IMPRESSION: 1. Mildly enlarged fibroid uterus with none submucous in location. All appear sub serosal with some pedunculated. 2. 1.4 cm right adnexal paraovarian cyst.
--- NOTE | 2018-01-02 10:50 | CT ---
Date of service: 01/02/2018 PROCEDURE: CT Abdomen and Pelvis without intravenous contrast HISTORY: flank pain COMPARISON: None. TECHNIQUE: Without contrast. Contrast dose: Radiation dose: Total exam DLP = 447 mGy-cm. This CT exam was performed using one or more of the following dose reduction techniques: Automated exposure control, adjustment of the mA and/or kV according to patient size, and/or use of iterative reconstruction technique. FINDINGS: LOWER THORAX: Unremarkable. LIVER: Unremarkable. No gross lesion or ductal dilatation. GALLBLADDER AND BILE DUCTS: Unremarkable. PANCREAS: Unremarkable. No gross lesion or ductal dilatation. SPLEEN: Unremarkable. ADRENALS: Unremarkable. No mass. KIDNEYS AND URETERS: Unremarkable. No hydronephrosis. No solid mass. VASCULATURE: Unremarkable. No aortic aneurysm. BOWEL: Unremarkable. No obstruction. No gross mural thickening. APPENDIX: Unremarkable. Normal appendix. PERITONEUM: Unremarkable. No free fluid. No free air. LYMPH NODES: Unremarkable. No enlarged lymph nodes. BLADDER: Unremarkable. REPRODUCTIVE: There is an exophytic fibroid extending off the ventral surface of the uterine fundus measuring 25 mm in diameter. This invaginate the superior surface of the bladder BONES: No acute fracture. OTHER FINDINGS: None. IMPRESSION: No evidence of urolithiasis. No acute intra-abdominal findings
[2018-01-02 12:11] VITALS: BP 130/76; PULSE 86; TEMP 98.8; O2SAT 99
== END 2018-01-02 12:12 | disposition home or self-care (01) ==
LOC: ED 07:04
DX: D25.9 Leiomyoma of uterus, unspecified (principal); N94.6 Dysmenorrhea, unspecified; B37.49 Other urogenital candidiasis; F17.210 Nicotine dependence, cigarettes, uncomplicated; I10 Essential (primary) hypertension
CPT/HCPCS: 74176; 76830; 80053; 80324; 80345; 80346; 80349; 80353; 80358; 80361; 81001; 83690; 83992; 85025; 87086; 96374; 96375; 99284; J1885; J2405

== ENCOUNTER 2018-03-01 09:46 | Emergency (ER) | payer MEDICAID ==
[2018-03-01 09:47] VITALS: BMI 28.1
--- NOTE | 2018-03-01 10:04 | ED PDOC ---
Arrival/HPI - General Chief Complaint: Abdominal Pain Time Seen by Provider: 03/01/18 09:48 Historian: Patient, Other (friend) - History of Present Illness Time/Duration: Other (last night) Symptom Onset: Gradual Symptom Course: Worsening Quality: Aching, Cramping Severity Level: Severe Activities at Onset: Rest Associated Symptoms (Text): 03/01/18 10:02 Patient complains of severe crampy generalized abdominal pain along with nausea and vomiting since last night. She also complains that the pain radiates into her chest and into her back. She has had similar episodes previously, last episode in December of this year. At that time she was seen in the emergency department and had a CT scan of the abdomen and pelvis and a transvaginal ultrasound which were remarkable only for fibroid uterus. Her menstrual cycle began yesterday and the cramps began last night. She has had similar episodes previously. There is no diarrhea. No genitourinary symptoms. No fever or chills. No dyspnea. No cough congestion or URI. She is crying in pain and writhing about with pain. Past Medical History - Past History Past History: No Previous - Infectious Disease Hx of Infectious Diseases: None - Tetanus Immunization Tetanus Immunization: Unknown - Past Medical History Past Medical History: No Previous - Cardiac Hx Cardiac Disorders: Yes Hx Hypertension: Yes - Pulmonary Hx Respiratory Disorders: Yes Hx Bronchitis: Yes - Neurological Hx Neurological Disorder: No - HEENT Hx HEENT Disorder: No - Renal Hx Renal Disorder: No - Endocrine/Metabolic Hx Endocrine Disorders: No - Hematological/Oncological Hx Blood Disorders: Yes Hx Anemia: Yes - Integumentary Hx Dermatological Disorder: No - Musculoskeletal/Rheumatological Hx Musculoskeletal Disorders: Yes Hx Gout: Yes - Gastrointestinal Hx Gastrointestinal Disorders: Yes Hx Gastroesophageal Reflux: Yes - Genitourinary/Gynecological Hx Genitourinary Disorders: No Other/Comment: cyst 2 years ago on left ovary, fibroids - Psychiatric Hx Psychophysiologic Disorder: Yes Hx Depression: Yes Hx Substance Use: No Other/Comment: substance abuse - Past Surgical History Past Surgical History: No Previous - Surgical History Other/Comment: endoscopy dx with gastritis - Anesthesia Hx Anesthesia: Yes Hx Anesthesia Reactions: No Hx Malignant Hyperthermia: No - Suicidal Assessment Feels Threatened In Home Enviroment: No Family/Social History - Physician Review Nursing Documentation Reviewed: Yes Family/Social History: Unknown Family HX Smoking Status: Heavy Smoker > 10 Cigarettes Daily Hx Alcohol Use: Yes Frequency of alcohol use: Socially Hx Substance Use: No Substance used: cocaine Hx Substance Use Treatment: Yes Allergies/Home Meds Allergies/Adverse Reactions: Allergies coconut oil Allergy (Verified 01/02/18 07:14) ANAPHYLAXIS calixto Allergy (Verified 01/02/18 07:14) ANAPHYLAXIS Home Medications: Home Meds Medication Instructions Recorded Confirmed Ibuprofen [Motrin Tab] 1 tab PO BID 03/01/18 03/01/18 Pantoprazole [Protonix EC Tab] 1 tab PO DAILY 03/01/18 03/01/18 oxyCODONE/Acetaminophen [Percocet 1 ea PO QID PRN 03/01/18 03/01/18 5/325 mg Tab] tiZANidine [Zanaflex] 1 tab PO BID PRN 03/01/18 03/01/18 Review of Systems - Physician Review All systems were reviewed & negative as marked: Yes - Review of Systems Constitutional: absent: Fatigue, Fevers Respiratory: absent: SOB, Cough, Wheezing Cardiovascular: Chest Pain. absent: Palpitations, Syncope Gastrointestinal: Abdominal Pain, Nausea, Vomiting. absent: Constipation, D iarrhea Genitourinary Female: Vaginal Bleeding. absent: Dysuria, Frequency, Hematuria, Vaginal Discharge Neurological: absent: Headache, Dizziness, Focal Weakness Physical Exam Temperature: Afebrile Blood Pressure: Normal Pulse: Regular Respiratory Rate: Normal Appearance: Positive for: Well-Appearing, Non-Toxic, Uncomfortable Pain Distress: Severe Mental Status: Positive for: Alert and Oriented X 3 - Systems Exam Head: Present: Atraumatic, Normocephalic Pupils: Present: PERRL Extroacular Muscles: Present: EOMI Conjunctiva: Present: Normal Mouth: Present: Moist Mucous Membranes Pharnyx: No: ERYTHEMA, EXUDATE, TONSILS ENLARGED Neck: Present: Normal Range of Motion Respiratory/Chest: Present: Clear to Auscultation, Good Air Exchange. No: Respiratory Distress, Accessory Muscle Use, Tender to Palpation Cardiovascular: Present: Regular Rate and Rhythm, Normal S1, S2. No: Murmurs Abdomen: Present: Tenderness (mild generalized tenderness, mild bilateral CVA tenderness), Normal Bowel Sounds. No: Distention, Peritoneal Signs, Rebound, Guarding Back: Present: CVA Tenderness Upper Extremity: Present: Normal Inspection. No: Cyanosis, Edema Lower Extremity: Present: Normal Inspection. No: Edema Neurological: Present: GCS=15, CN II-XII Intact, Speech Normal, Motor Func Grossly Intact Skin: Present: Warm, Dry, Normal Color. No: Rashes Psychiatric: Present: Alert, Oriented x 3, Normal Insight, Normal Concentration Medical Decision Making ED Course and Treatment: 03/01/18 10:05 EKG shows normal sinus rhythm rate approximately [address] or T-wave changes. 03/01/18 11:39 Patient reports she has had similar episodes multiple times previously associated with her menstrual cycle. She has run out of her Percocet. Her symptoms are markedly improved at this time. Discharge home to follow-up with SMOKING PIPE MAKER and PMD. Follow up in ER as needed. 03/01/18 11:44 Known anemia, no different from previous. Disposition/Present on Arrival - Present on Arrival Any Indicators Present on Arrival: No History of DVT/PE: No History of Uncontrolled Diabetes: No Urinary Catheter: No History of Decub. Ulcer: No History Surgical Site Infection Following: None - Disposition Have Diagnosis and Disposition been Completed?: Yes Diagnosis: Dysmenorrhea, Nausea and vomiting Disposition: HOME/ ROUTINE Disposition Time: 11:40 Patient Plan: Discharge Patient Problems: Current Active Problems Problem Status Onset Dysmenorrhea Acute Nausea and vomiting Acute Condition: IMPROVED Discharge Instructions (ExitCare): Nausea and Vomiting, Adult, Menstrual Cramps (DC) Prescriptions: oxyCODONE/Acetaminophen [Percocet 5/325 mg Tab] 1 ea PO Q6 #5 tab Ondansetron [Zofran Odt] 4 mg SL Q6 #20 odt Forms: [employer] (Turkish), WORK NOTE
[2018-03-01 10:11] VITALS: TEMP 98.3
[2018-03-01] MEDS ORDERED: Sodium Chloride 0.9% 1,000 ML IV ONE (10:20)
[2018-03-01 10:34] LABS: BASO # 0.04 K/mm3 (0.0-2.0); BASO % 0.4 % (0.0-3.0); EOS # 0.1 (0.0-0.7); EOS % 0.5 % (1.5-5.0); GRAN # 6.87 (1.4-6.5); GRAN % 74.4 % (50.0-68.0); HEMOGLOBIN 8.2 g/dL (12.0-16.0); LYMPH # 1.6 (1.2-3.4); LYMPH % 17.1 % (22.0-35.0); MEAN CELL VOLUME 62.5 fl (80.0-105.0); MEAN CORPUSCULAR HEMOGLOBIN 17.6 pg (25.0-35.0); MEAN CORPUSCULAR HGB CONC 28.1 g/dl (31.0-37.0); MEAN PLATELET VOLUME 8.9 fl (7.0-11.0); MONO # 0.7 (0.1-0.6); MONO % 7.6 % (1.0-6.0); RBC 4.67 10^6/uL (3.5-6.1); RED CELL DISTRIBUTION WIDTH 21.2 % (11.5-14.5); WHITE BLOOD COUNT 9.2 10^3/ul (4.5-11.0)
[2018-03-01 10:40] LABS: INR 0.91; PARTIAL THROMBOPLASTIN TIME 25.7 Seconds (25.1-36.5); PROTHROMBIN TIME 10.5 SECONDS (9.4-12.5)
[2018-03-01 10:46] LABS: ALB/GLOB RATIO 1.1 (1.1-1.8); ALBUMIN 4.4 g/dL (3.0-4.8); ALT/SGPT 23 U/L (7-56); AMYLASE 135 U/L (35-125); AST/SGOT 32 U/L (14-36); BLOOD UREA NITROGEN 18 mg/dL (7-21); CALCIUM 9.4 mg/dL (8.4-10.5); GFR NON-AFRICAN AMERICAN > 60; LIPASE 82 U/L (23-300)
[2018-03-01] MEDS ORDERED: Sodium Chloride 0.9% 1,000 ML IV STA (10:49)
[2018-03-01 10:57] LABS: TROPONIN I < 0.01 ng/mL
[2018-03-01 11:02] LABS: PH,URINE 7.5 (4.7-8.0); URINE BILIRUBIN LARGE (NEGATIVE); URINE BLOOD LARGE (NEGATIVE); URINE GLUCOSE (UA) 100 mg/dL (NEGATIVE); URINE LEUKOCYTE ESTERASE LARGE Leu/uL (NEGATIVE); URINE PROTEIN >=300 mg/dL (<30 mg/dL)
[2018-03-01 11:03] LABS: URINE APPEARANCE TURBID (CLEAR); URINE COLOR RED (YELLOW); URINE RBC TNTC /hpf (0-2)
[2018-03-01 11:04] LABS: URINE BACTERIA FEW (NEG)
[2018-03-01 11:20] LABS: CK-MB 2.1 ng/mL (0.0-3.6)
[2018-03-01 11:41] VITALS: BP 120/76; PULSE 78; RESP 18; O2SAT 98
--- NOTE | 2018-03-01 15:12 | CARD ---
APPROVED REPORT Date of service: 03/01/2018 EKG Measurement Heart [id number] <Conclusion> Normal sinus rhythm Normal ECG
== END 2018-03-01 11:50 | disposition home or self-care (01) ==
LOC: ED 09:46
DX: N94.6 Dysmenorrhea, unspecified (principal); R11.2 Nausea with vomiting, unspecified; I10 Essential (primary) hypertension; M10.9 Gout, unspecified; F17.210 Nicotine dependence, cigarettes, uncomplicated
CPT/HCPCS: 80053; 81001; 82150; 82550; 82553; 82948; 83615; 83690; 84484; 85025; 85610; 85730; 87086; 93005; 96361; 96374; 96375; 99285; J1885; J2405; J7030

== ENCOUNTER 2018-03-27 13:31 | Inpatient (IN) | payer MEDICAID ==
[2018-03-27 13:42] VITALS: BMI 29.7
--- NOTE | 2018-03-27 13:54 | ED PDOC ---
Arrival/HPI - General Chief Complaint: Anxiety Time Seen by Provider: 03/27/18 13:36 Historian: Patient - History of Present Illness Narrative History of Present Illness (Text): 03/27/18 13:54 37 year old female, whose past medical history includes hypertension, Gastritis, Anxiety, ovarian cyst, and fibroids, presents to the emergency department complaining of cough, shortness of breath, and chest discomfort that began last night. Patient reports she was admitted with similar symptoms in the past for anemia, URI, and pneumonia. She is a smoker and occasional drinker. Patient denies any recent travel and is currently on her menstrual period. Patient denies any fever, chills, nausea, vomiting, diarrhea, urinary symptoms, back pain, neck pain, headache, dizziness, or any other complaints. PMD: Dr. Alvarado Past Medical History - Provider Review Nursing Documentation Reviewed: Yes - Past History Past History: No Previous - Infectious Disease Hx of Infectious Diseases: None - Tetanus Immunization Tetanus Immunization: Unknown - Past Medical History Past Medical History: No Previous - Cardiac Hx Cardiac Disorders: Yes Hx Hypertension: Yes - Pulmonary Hx Respiratory Disorders: Yes Hx Bronchitis: Yes - Neurological Hx Neurological Disorder: No - HEENT Hx HEENT Disorder: No - Renal Hx Renal Disorder: No - Endocrine/Metabolic Hx Endocrine Disorders: No - Hematological/Oncological Hx Blood Disorders: Yes Hx Anemia: Yes - Integumentary Hx Dermatological Disorder: No - Musculoskeletal/Rheumatological Hx Musculoskeletal Disorders: Yes Hx Gout: Yes - Gastrointestinal Hx Gastrointestinal Disorders: Yes Hx Gastroesophageal Reflux: Yes - Genitourinary/Gynecological Hx Genitourinary Disorders: No Other/Comment: cyst 2 years ago on left ovary, fibroids - Psychiatric Hx Psychophysiologic Disorder: Yes Hx Depression: Yes Hx Substance Use: No Other/Comment: substance abuse - Past Surgical History Past Surgical History: No Previous - Surgical History Other/Comment: endoscopy dx with gastritis - Anesthesia Hx Anesthesia: Yes Hx Anesthesia Reactions: No Hx Malignant Hyperthermia: No - Suicidal Assessment Feels Threatened In Home Enviroment: No Family/Social History - Physician Review Nursing Documentation Reviewed: Yes Family/Social History: No Known Family HX Smoking Status: Heavy Smoker > 10 Cigarettes Daily Hx Alcohol Use: Yes Hx Substance Use: No Substance used: cocaine Hx Substance Use Treatment: Yes Allergies/Home Meds Allergies/Adverse Reactions: Allergies coconut oil Allergy (Verified 03/27/18 13:46) ANAPHYLAXIS calixto Allergy (Verified 03/27/18 13:46) ANAPHYLAXIS Home Medications: Home Meds Medication Instructions Recorded Confirmed Ibuprofen [Motrin Tab] 1 tab PO BID 03/01/18 03/27/18 Pantoprazole [Protonix EC Tab] 1 tab PO DAILY 03/01/18 03/27/18 tiZANidine [Zanaflex] 1 tab PO BID PRN 03/01/18 03/27/18 Nitrofurantoin Macrocrystal 100 mg PO BID 03/27/18 03/27/18 [Nitrofurantoin] Review of Systems - Physician Review All systems were reviewed & negative as marked: Yes - Review of Systems Constitutional: absent: Fevers Respiratory: SOB, Cough Physical Exam - Physical Exam Narrative Physical Exam (Text): Constitutional: No acute distress. Head: Normocephalic. Atraumatic. Eyes: PERRL. ENT: Moist mucous membranes. No pharyngeal erythema or exudates Neck: Supple. Cardiovascular: Heart murmur. Regular rate. Chest: Reproducible chest wall tenderness Respiratory: Clear to auscultation bilaterally. GI: Soft. Nontender. Nondistended. Gross hematuria (Urine cup at bedside) Back: No CVA tenderness. Musculoskeletal: No tenderness or swelling of extremities. Skin: No rash. Neurologic: Alert, no focal deficit. Vital Signs Reviewed: Yes Vital Signs Temp Pulse Resp BP Pulse Ox 03/27/18 13:39 98.8 F 89 18 153/87 H 100 Medical Decision Making ED Course and Treatment: 03/27/18 13:54 Impression: 37 year old female presents complaining of cough, chest pain, and shortness of breath that began last night. On PE patient has reproducible chest wall tenderness. Plan: -- Labs -- EKG -- Chest X-ray -- Urine Culture -- Influenza A B , Rapid Strep Group A Antigen -- Urinalysis, HCG, Qualitative urine -- Reassess and disposition Prior Visits: Notes and results from previous visits were reviewed. Progress Notes: 03/27/18 14:21 EKG shows NSR at [address]/T wave changes. Normal [place]. Interpreted by me. CXR no acute disease. Ceftriaxone administered. ID consulted. Dr. Alvarado accepts patient to his service. - Lab Interpretations I have reviewed the lab results: Yes - EKG Interpretation Interpreted by ED Physician: Yes Type: 12 lead EKG - Scribe Statement The provider has reviewed the documentation as recorded by the Matthewibe Alfonso Wright Provider David Attestation: All medical record entries made by the David were at my direction and personally dictated by me. I have reviewed the chart and agree that the record accurately reflects my personal performance of the history, physical exam, medical decision making, and the department course for this patient. I have also personally directed, reviewed, and agree with the discharge instructions and disposition. Disposition/Present on Arrival - Present on Arrival Any Indicators Present on Arrival: No History of DVT/PE: No History of Uncontrolled Diabetes: No Urinary Catheter: No History of Decub. Ulcer: No History Surgical Site Infection Following: None - Disposition Have Diagnosis and Disposition been Completed?: Yes Diagnosis: UTI (urinary tract infection), Leukocytosis, Anemia Disposition: HOSPITALIZED Disposition Time: 14:45 Patient Plan: Admission Condition: GUARDED
[2018-03-27 14:29] LABS: BASO # 0.02 K/mm3 (0.0-2.0); BASO % 0.1 % (0.0-3.0); EOS # 0.2 (0.0-0.7); GRAN # 13.46 (1.4-6.5); GRAN % 88.9 % (50.0-68.0); HEMOGLOBIN 7.7 g/dL (12.0-16.0); LYMPH # 0.9 (1.2-3.4); LYMPH % 5.8 % (22.0-35.0); MEAN CORPUSCULAR HEMOGLOBIN 17.5 pg (25.0-35.0); MEAN CORPUSCULAR HGB CONC 28.1 g/dl (31.0-37.0); MEAN PLATELET VOLUME 8.7 fl (7.0-11.0); MONO # 0.6 (0.1-0.6); MONO % 4.2 % (1.0-6.0); RBC 4.39 10^6/uL (3.5-6.1); WHITE BLOOD COUNT 15.1 10^3/uL (4.5-11.0)
[2018-03-27 14:33] LABS: PH,URINE 6.5 (4.7-8.0); URINE BILIRUBIN NEGATIVE (NEGATIVE); URINE BLOOD LARGE (NEGATIVE); URINE GLUCOSE (UA) NEGATIVE (NEGATIVE); URINE LEUKOCYTE ESTERASE MODERATE Leu/uL (NEGATIVE); URINE PROTEIN >=300 mg/dL (<30 mg/dL)
[2018-03-27 14:34] LABS: URINE APPEARANCE BLOODY (CLEAR); URINE COLOR DARK RED (YELLOW)
[2018-03-27 14:41] LABS: URINE BACTERIA LARGE (NEG); URINE RBC TNTC /hpf (0-2); URINE WBC TNTC /hpf (0-6)
[2018-03-27 14:43] LABS: ALB/GLOB RATIO 1.2 (1.1-1.8); ALT/SGPT 19 U/L (7-56); AST/SGOT 22 U/L (14-36); BLOOD UREA NITROGEN 10 mg/dL (7-21); CALCIUM 9.3 mg/dL (8.4-10.5); GFR NON-AFRICAN AMERICAN > 60; LIPASE 37 U/L (23-300)
[2018-03-27 14:52] LABS: B-TYPE NATRIURETIC PEPTIDE 172 pg/mL (0-450); TROPONIN I < 0.01 ng/mL
[2018-03-27 15:00] LABS: INFLUENZA A B NEGATIVE FOR FLU A/B (NEGATIVE)
[2018-03-27 15:06] LABS: CK-MB 0.9 ng/mL (0.0-3.6)
[2018-03-27 15:09] LABS: HCG,QUALITATIVE URINE NEGATIVE (NEGATIVE)
[2018-03-27 15:16] LABS: MEAN CELL VOLUME 62.4 fl (80.0-105.0)
--- NOTE | 2018-03-27 15:38 | RAD ---
Date of service: 03/27/2018 HISTORY: chest pain, dyspnea COMPARISON: 06/28/2017 TECHNIQUE: Chest PA and lateral FINDINGS: LUNGS: No active pulmonary disease. PLEURA: No significant pleural effusion identified. No pneumothorax apparent. CARDIOVASCULAR: No aortic atherosclerotic calcification present. Normal cardiac size. No pulmonary vascular congestion. OSSEOUS STRUCTURES: No significant abnormalities. VISUALIZED UPPER ABDOMEN: Normal. OTHER FINDINGS: None. IMPRESSION: No active disease.
[2018-03-27] MEDS ORDERED: cefTRIAXone 1 gm 1 GM/100 ML BAG IVPB STA (15:40)
[2018-03-27] MEDS: Sodium Chloride 0.45% 1,000 ML IV SCH (19:10)
[2018-03-27] MEDS ORDERED: Pneumococcal 23-Valent Vaccine IM ONE (19:19)
--- NOTE | 2018-03-27 19:23 | CARD ---
APPROVED REPORT Date of service: 03/27/2018 EKG Measurement Heart [id number] <Conclusion> Normal sinus rhythm Normal ECG
[2018-03-28] MEDS: Sodium Chloride 0.45% 1,000 ML IV SCH ×2 (07:54→20:53)
--- NOTE | 2018-03-28 09:37 | CP.PCM.CON ---
<Kortney Sweeney - Last Filed: 03/28/18 11:52> History of Present Illness - History of Present Illness History of Present Illness: Infectious Disease Consult Note for Brodie Murphy PGY3 This is a 37yo female with past medical history of fibroids, iron deficiency anemia, HTN, gout, gastritis who came to ED for cough, shortness of breath and chest pain x 1 day. She states she has been having a cough with yellowish mucus. Her chest pain is worse with coughing. She denies fever/chills, sick contacts, recent travel, nausea/vomiting/diarrhea, dysuria or hematuria. She reports her periods continue to be irregular and reports she is not sexually active at this time. She has had + UA in the past for UTI, but urine cultures were either negative or showed multiple species. She has been hospitalized before for URI. Past medical history: Fibroids, iron deficiency anemia, HTN, gout, gastritis Past surgical history: Denies Home meds: Reviewed Allergies: coconut oil, calixto Social history: Tobacco abuse (used to smoke 1ppd, now down to 1 cig per day), social EtOH use, denies drug use. Family history: Grandma (maternal)- pancreatic ca. Mom- fibroids, HTN/DM Review of Systems - Review of Systems All systems: reviewed and no additional remarkable complaints except Review of Systems: 12 point ROS reviewed as per HPI and is otherwise negative Past Patient History - Infectious Disease Hx of Infectious Diseases: None - Tetanus Immunizations Tetanus Immunization: Unknown - Past Social History Smoking Status: Current Some Days Smoker - CARDIAC Hx Cardiac Disorders: Yes Hx Hypertension: Yes - PULMONARY Hx Respiratory Disorders: Yes (SMOKES CIGARETTES LESS THAN 1/2 PPD.) Hx Bronchitis: Yes Hx Pneumonia: Yes - NEUROLOGICAL Hx Neurological Disorder: No - HEENT Hx HEENT Problems: No - RENAL Hx Chronic Kidney Disease: No - ENDOCRINE/METABOLIC Hx Endocrine Disorders: No - HEMATOLOGICAL/ONCOLOGICAL Hx Blood Disorders: Yes Hx Anemia: Yes - INTEGUMENTARY Hx Dermatological Problems: No - MUSCULOSKELETAL/RHEUMATOLOGICAL Hx Musculoskeletal Disorders: Yes Hx Falls: No Hx Gout: Yes - GASTROINTESTINAL Hx Gastrointestinal Disorders: Yes Hx Gastroesophageal Reflux: Yes - GENITOURINARY/GYNECOLOGICAL Hx Genitourinary Disorders: No Other/Comment: cyst 2 years ago on left ovary, fibroids - PSYCHIATRIC Hx Psychophysiologic Disorder: Yes Hx Depression: Yes Hx Substance Use: No Other/Comment: substance abuse - SURGICAL HISTORY Hx Surgeries: Yes Other/Comment: endoscopy dx with gastritis - ANESTHESIA Hx Anesthesia: Yes Hx Anesthesia Reactions: No Hx Malignant Hyperthermia: No Meds Allergies/Adverse Reactions: Allergies Allergy/AdvReac Type Severity Reaction Status Date / Time coconut oil Allergy ANAPHYLAXIS Verified 03/27/18 18:44 calixto Allergy ANAPHYLAXIS Verified 03/27/18 18:44 - Medications Medications: Current Medications Acetaminophen (Tylenol 325mg Tab) 650 mg PO Q4 PRN PRN Reason: Pain, Mild (1-3) Last Admin: 03/27/18 19:10 Dose: 650 mg Famotidine (Pepcid) 20 mg IVP DAILY [facility] Sodium Chloride (Sodium Chloride 0.45%) 1,000 mls @ 75 mls/hr IV .[id number] [facility] Last Admin: 03/28/18 07:54 Dose: 75 mls/hr Ceftriaxone Sodium (Rocephin 1 Gram Ivpb) 1 gm in 100 mls @ 100 mls/hr IVPB DAILY [facility]; Protocol Physical Exam - Constitutional Appears: No Acute Distress - Head Exam Head Exam: ATRAUMATIC, NORMAL INSPECTION, NORMOCEPHALIC - Eye Exam Eye Exam: Normal appearance, PERRL Pupil Exam: NORMAL ACCOMODATION, PERRL - ENT Exam ENT Exam: Mucous Membranes Moist - Respiratory Exam Respiratory Exam: Clear to Auscultation Bilateral, NORMAL BREATHING PATTERN. absent: Rales, Rhonchi, Wheezes - Cardiovascular Exam Cardiovascular Exam: REGULAR RHYTHM, +S1, +S2. absent: Gallop, Rubs, Systolic Murmur - GI/Abdominal Exam GI & Abdominal Exam: Normal Bowel Sounds, Soft. absent: Mass, Rebound, Rigid, Tenderness - Extremities Exam Extremities exam: Positive for: normal inspection. Negative for: calf tenderness, pedal edema - Back Exam Back exam: paraspinal tenderness - Neurological Exam Neurological exam: Alert, CN II-XII Intact, Normal Gait, Oriented x3 - Psychiatric Exam Psychiatric exam: Normal Affect, Normal Mood - Skin Skin Exam: Dry, Warm Results - Vital Signs Recent Vital Signs: Last Vital Signs Temp 98.3 F 03/28/18 06:00 Pulse 58 L 03/28/18 06:00 Resp 20 03/28/18 06:00 BP 107/70 03/28/18 06:00 Pulse Ox 99 03/28/18 06:00 - Labs Result Diagrams: 03/28/18 10:00 03/27/18 14:15 Labs: Laboratory Results - last 24 hr 03/27/18 03/27/18 03/27/18 14:15 14:15 14:15 WBC 15.1 H RBC 4.39 Hgb 7.7 L Hct 27.4 L MCV 62.4 L MCH 17.5 L MCHC 28.1 L RDW 21.0 H Plt Count 253 MPV 8.7 Gran % 88.9 H Lymph % (Auto) 5.8 L [place] % (Auto) 4.2 Eos % (Auto) 1.0 L Baso % (Auto) 0.1 Gran # 13.46 H Lymph # (Auto) 0.9 L [place] # (Auto) 0.6 Eos # (Auto) 0.2 Baso # (Auto) 0.02 Sodium 138 Potassium 4.5 Chloride 108 H Carbon Dioxide 21 Anion Gap 14 BUN 10 Creatinine 1.0 Est GFR ( Amer) > 60 Est GFR (Non-Af Amer) > 60 Random Glucose 98 Calcium 9.3 Total Bilirubin 0.7 AST 22 ALT 19 Alkaline Phosphatase 46 Total Creatine Kinase 289 H CK-MB (CK-2) 0.9 CK-MB (CK-2) % Cancelled Troponin I < 0.01 NT-Pro-B Natriuret Pep 172 Total Protein 7.4 Albumin 4.0 Globulin 3.4 Albumin/Globulin Ratio 1.2 Lipase 37 Urine Color Urine Appearance Urine pH Ur Specific [place] Urine Protein Urine Glucose (UA) Urine Ketones Urine Blood Urine Nitrate Urine Bilirubin Urine Urobilinogen Ur Leukocyte Esterase Urine RBC Urine WBC Ur Epithelial Cells Urine Bacteria Urine HCG, Qual Influenza Typ A,B (EIA) Negative for flu a/b Grp A Beta Strep Ag Negative Blood Type Antibody Screen BBK History Checked 03/27/18 03/27/18 14:15 15:22 WBC RBC Hgb Hct MCV MCH MCHC RDW Plt Count MPV Gran % Lymph % (Auto) [place] % (Auto) Eos % (Auto) Baso % (Auto) Gran # Lymph # (Auto) [place] # (Auto) Eos # (Auto) Baso # (Auto) Sodium Potassium Chloride Carbon Dioxide Anion Gap BUN Creatinine Est GFR ( Amer) Est GFR (Non-Af Amer) Random Glucose Calcium Total Bilirubin AST ALT Alkaline Phosphatase Total Creatine Kinase CK-MB (CK-2) CK-MB (CK-2) % Troponin I NT-Pro-B Natriuret Pep Total Protein Albumin Globulin Albumin/Globulin Ratio Lipase Urine Color Dark red Urine Appearance Bloody Urine pH 6.5 Ur Specific [place] 1.025 Urine Protein >=300 H Urine Glucose (UA) Negative Urine Ketones Trace H Urine Blood Large H Urine Nitrate Positive H Urine Bilirubin Negative Urine Urobilinogen 1.0 H Ur Leukocyte Esterase Moderate H Urine RBC Tntc Urine WBC Tntc Ur Epithelial Cells 6 - 8 Urine Bacteria Large Urine HCG, Qual Negative Influenza Typ A,B (EIA) Grp A Beta Strep Ag Blood Type O POSITIVE Antibody Screen Negative BBK History Checked Patient has bt Assessment & Plan - Assessment and Plan (Free Text) Assessment: 1. Cough - CXR negative for pneumonia - can be secondary to bronchitis v. URI 2. UTI - UA positive, pt asymptomatic 3. Anemia - iron deficiency 4. Fibroids 5. HTN 6. Gout Plan: Will continue Rocephin. Will await culture results. HIV is pending. UA did not comment on trichomonas. Will continue to monitor patient clinically. Case seen, reviewed and discussed with Dr. Cheryl Sweeney PGY3 <Rajesh Luna - Last Filed: 03/28/18 20:31> Meds - Medications Medications: Current Medications Acetaminophen (Tylenol 325mg Tab) 650 mg PO Q4 PRN PRN Reason: Pain, Mild (1-3) Last Admin: 03/27/18 19:10 Dose: 650 mg Docusate Sodium (Colace) 100 mg PO DAILY PRN PRN Reason: Constipation Famotidine (Pepcid) 20 mg IVP DAILY [facility] Last Admin: 03/28/18 10:13 Dose: 20 mg Sodium Chloride (Sodium Chloride 0.45%) 1,000 mls @ 75 mls/hr IV .[id number] [facility] Last Admin: 03/28/18 07:54 Dose: 75 mls/hr Ceftriaxone Sodium (Rocephin 1 Gram Ivpb) 1 gm in 100 mls @ 100 mls/hr IVPB DAILY [facility]; Protocol Last Admin: 03/28/18 10:14 Dose: 100 mls/hr Iron Sucrose 200 mg/ Sodium (Chloride) 110 mls @ 110 mls/hr IVPB DAILY [facility] Stop: 04/02/18 18:43 Tramadol HCl (Ultram) 50 mg PO Q8H PRN PRN Reason: Pain, moderate (4-7) Last Admin: 03/28/18 17:03 Dose: 50 mg Results - Vital Signs Recent Vital Signs: Last Vital Signs Temp 98.8 F 03/28/18 14:00 Pulse 69 03/28/18 14:00 Resp 18 03/28/18 14:00 BP 124/85 03/28/18 14:00 Pulse Ox 99 03/28/18 14:00 - Labs Result Diagrams: 03/28/18 10:00 03/27/18 14:15 Labs: Laboratory Results - last 24 hr 03/28/18 10:00 WBC 8.4 D RBC 4.04 Hgb 7.0 L Hct 25.2 L MCV 62.4 L MCH 17.3 L MCHC 27.8 L RDW 21.1 H Plt Count 236 MPV 8.2 Assessment & Plan - Assessment and Plan (Free Text) Plan: Infectious Diseases Attending Physician Attestation Patient seen and examined, discussed with medical laboratory technologist. I have reviewed the patient's history of present illness, past medical, family and social histories, personal history, physical exam, lab findings and imaging studies. I agree with the above findings, assessment and plan. In addition, continue Rocephin and follow up blood cx and urine cx for possible UTI. Will monitor clinically. Follow up HIV test.
[2018-03-28 10:09] LABS: MEAN CELL VOLUME 62.4 fl (80.0-105.0); MEAN CORPUSCULAR HEMOGLOBIN 17.3 pg (25.0-35.0); MEAN CORPUSCULAR HGB CONC 27.8 g/dl (31.0-37.0); MEAN PLATELET VOLUME 8.2 fl (7.0-11.0); RBC 4.04 10^6/uL (3.5-6.1); RED CELL DISTRIBUTION WIDTH 21.1 % (11.5-14.5); WHITE BLOOD COUNT 8.4 10^3/uL (4.5-11.0)
[2018-03-28] MEDS: cefTRIAXone 1 gm 1 GM/100 ML BAG IVPB SCH (10:14)
--- NOTE | 2018-03-28 14:28 | US ---
Date of service: 03/28/2018 HISTORY: uti. anemia COMPARISON: 01/02/2018 1 cm to 3.2 cm. TECHNIQUE: Transabdominal FINDINGS: UTERUS: Measures 11.52 x 5.84 x 6.44 cm. Normal in size and appearance. Multiple fibroids are seen ranging in size from 1 cm to 3.2 cm. Total of 4 separate fibroids were measured. These are not significantly changed ENDOMETRIUM: Measures 7 mm in diameter. Unremarkable. CERVIX: No cervical abnormality identified. RIGHT OVARY: Measures 4.17 x 1.64 x 3.07 cm. No solid mass. Normal flow. LEFT OVARY: Measures 2.81 x 2.21 x 3.04 cm. No solid mass. Normal flow. FREE FLUID: No significant free fluid noted. OTHER FINDINGS: None. IMPRESSION: Multiple fibroids
--- NOTE | 2018-03-28 20:35 | CP.PCM.CON ---
<Chester Hoffmann - Last Filed: 03/28/18 20:30> History of Present Illness - History of Present Illness History of Present Illness: Hematology/Oncology Consultation (Dr. Langford's Service) CC: SOB HPI: Ms. Lawton is a 37 year old female with a past medical history significant for irregular/heavy menstrual cycles with associated DAIJA, HTN, uterine fibroids and gout who presented with SOB, headache and weakness. Hematology was consulted for patients history of anemia. Patient reports that she was being seen by an senior production planner for her irregular/heavy periods and even had an appointment sched uled to further discuss her options next week. However, her current symptoms developed and she had to cancel that appointment. Currently, patient denies any complaints and 12 point ROS is unremarkable. PMH: As stated above PSH: Denies Family History: Maternal Grandmother-Pancreatic Cancer; Mother-HTN, DM2, and uterine fibroids Social History: Current 1/2ppd tobacco use; Social alcohol use; Denies any illicit drug abuse Allergies: Coconut oil and calixto Home Medications: As per [facility]: Dr. Mendoza Review of Systems - Review of Systems Review of Systems: As stated in HPI, otherwise negative Past Patient History - Infectious Disease Hx of Infectious Diseases: None - Tetanus Immunizations Tetanus Immunization: Unknown - Past Social History Smoking Status: Current Some Days Smoker - CARDIAC Hx Cardiac Disorders: Yes Hx Hypertension: Yes - PULMONARY Hx Respiratory Disorders: Yes (SMOKES CIGARETTES LESS THAN 1/2 PPD.) Hx Bronchitis: Yes Hx Pneumonia: Yes - NEUROLOGICAL Hx Neurological Disorder: No - HEENT Hx HEENT Problems: No - RENAL Hx Chronic Kidney Disease: No - ENDOCRINE/METABOLIC Hx Endocrine Disorders: No - HEMATOLOGICAL/ONCOLOGICAL Hx Blood Disorders: Yes Hx Anemia: Yes - INTEGUMENTARY Hx Dermatological Problems: No - MUSCULOSKELETAL/RHEUMATOLOGICAL Hx Musculoskeletal Disorders: Yes Hx Falls: No Hx Gout: Yes - GASTROINTESTINAL Hx Gastrointestinal Disorders: Yes Hx Gastroesophageal Reflux: Yes - GENITOURINARY/GYNECOLOGICAL Hx Genitourinary Disorders: No Other/Comment: cyst 2 years ago on left ovary, fibroids - PSYCHIATRIC Hx Psychophysiologic Disorder: Yes Hx Depression: Yes Hx Substance Use: No Other/Comment: substance abuse - SURGICAL HISTORY Hx Surgeries: Yes Other/Comment: endoscopy dx with gastritis - ANESTHESIA Hx Anesthesia: Yes Hx Anesthesia Reactions: No Hx Malignant Hyperthermia: No Meds Allergies/Adverse Reactions: Allergies Allergy/AdvReac Type Severity Reaction Status Date / Time coconut oil Allergy ANAPHYLAXIS Verified 03/27/18 18:44 calixto Allergy ANAPHYLAXIS Verified 03/27/18 18:44 - Medications Medications: Current Medications Acetaminophen (Tylenol 325mg Tab) 650 mg PO Q4 PRN PRN Reason: Pain, Mild (1-3) Last Admin: 03/27/18 19:10 Dose: 650 mg Docusate Sodium (Colace) 100 mg PO DAILY PRN PRN Reason: Constipation Famotidine (Pepcid) 20 mg IVP DAILY [facility] Last Admin: 03/28/18 10:13 Dose: 20 mg Sodium Chloride (Sodium Chloride 0.45%) 1,000 mls @ 75 mls/hr IV .[id number] [facility] Last Admin: 03/28/18 07:54 Dose: 75 mls/hr Ceftriaxone Sodium (Rocephin 1 Gram Ivpb) 1 gm in 100 mls @ 100 mls/hr IVPB DAILY [facility]; Protocol Last Admin: 03/28/18 10:14 Dose: 100 mls/hr Iron Sucrose 200 mg/ Sodium (Chloride) 110 mls @ 110 mls/hr IVPB DAILY [facility] Stop: 04/02/18 18:43 Tramadol HCl (Ultram) 50 mg PO Q8H PRN PRN Reason: Pain, moderate (4-7) Last Admin: 03/28/18 17:03 Dose: 50 mg Physical Exam - Constitutional Appears: Non-toxic, No Acute Distress - Head Exam Head Exam: ATRAUMATIC, NORMOCEPHALIC - Eye Exam Eye Exam: EOMI, Normal appearance, PERRL. absent: Conjunctival injection, [place] stagmus, Periorbital swelling, Periorbital tenderness, Scleral icterus Pupil Exam: NORMAL ACCOMODATION, PERRL. absent: Fixed, Irregular, Miosis, Mydriatic, Unequal - ENT Exam ENT Exam: Mucous Membranes Moist - Neck Exam Neck exam: Positive for: Full Rom, Normal Inspection - Respiratory Exam Respiratory Exam: Clear to Auscultation Bilateral, NORMAL BREATHING PATTERN - Cardiovascular Exam Cardiovascular Exam: REGULAR RHYTHM, RRR, +S1, +S2 - GI/Abdominal Exam GI & Abdominal Exam: Normal Bowel Sounds, Soft. absent: Tenderness - Extremities Exam Extremities exam: Negative for: calf tenderness - Neurological Exam Neurological exam: Alert, Oriented x3 - Psychiatric Exam Psychiatric exam: Normal Affect, Normal Mood - Skin Skin Exam: Dry, Intact, Normal Color, Warm Results - Vital Signs Recent Vital Signs: Last Vital Signs Temp 98.8 F 03/28/18 14:00 Pulse 69 03/28/18 14:00 Resp 18 03/28/18 14:00 BP 124/85 03/28/18 14:00 Pulse Ox 99 03/28/18 14:00 - Labs Result Diagrams: 03/28/18 10:00 03/27/18 14:15 Labs: Laboratory Results - last 24 hr 03/28/18 10:00 WBC 8.4 D RBC 4.04 Hgb 7.0 L Hct 25.2 L MCV 62.4 L MCH 17.3 L MCHC 27.8 L RDW 21.1 H Plt Count 236 MPV 8.2 Assessment & Plan - Assessment and Plan (Free Text) Assessment: 37 year old female with a past medical history significant for irregular/heavy menstrual cycles with associated DAIJA, HTN, uterine fibroids and gout who presented with SOB, headache and weakness. Hematology was consulted for patients history of anemia. Plan: -IV Venofer 200mg daily for five days -Hemoglobinopathy and lead levels pending -Would avoid blood products at this time until previously mentioned workup complete -Recommend outpatient follow up with her senior production planner as soon as possible after discharge -Further management by consultants and primary medical doctor -Further recommendations as per Dr. Langford Patient seen and case discussed with attending, Dr. Langford. Chester Hoffmann PGY2 - Date & Time Date: 03/28/18 Time: 20:36 <Cleve Langford P - Last Filed: 03/29/18 11:47> Meds - Medications Medications: Current Medications Acetaminophen (Tylenol 325mg Tab) 650 mg PO Q4 PRN PRN Reason: Pain, Mild (1-3) Last Admin: 03/29/18 09:01 Dose: 650 mg Docusate Sodium (Colace) 100 mg PO DAILY PRN PRN Reason: Constipation Famotidine (Pepcid) 20 mg PO DAILY [facility] Last Admin: 03/29/18 09:00 Dose: 20 mg Sodium Chloride (Sodium Chloride 0.45%) 1,000 mls @ 75 mls/hr IV .[id number] [facility] Last Admin: 03/28/18 20:53 Dose: 75 mls/hr Ceftriaxone Sodium (Rocephin 1 Gram Ivpb) 1 gm in 100 mls @ 100 mls/hr IVPB DAILY [facility]; Protocol Last Admin: 03/29/18 09:00 Dose: 100 mls/hr Iron Sucrose 200 mg/ Sodium (Chloride) 110 mls @ 110 mls/hr IVPB DAILY [facility] Stop: 04/02/18 18:43 Last Admin: 03/29/18 09:35 Dose: 110 mls/hr Tramadol HCl (Ultram) 50 mg PO Q8H PRN PRN Reason: Pain, moderate (4-7) Last Admin: 03/28/18 17:03 Dose: 50 mg Results - Vital Signs Recent Vital Signs: Last Vital Signs Temp 98.3 F 03/29/18 08:41 Pulse 68 03/29/18 08:41 Resp 20 03/29/18 08:41 BP 110/71 03/29/18 08:41 Pulse Ox 94 L 03/29/18 08:41 - Labs Result Diagrams: 03/29/18 06:00 03/29/18 06:00 Labs: Laboratory Results - last 24 hr 03/28/18 03/29/18 03/29/18 10:00 06:00 06:00 WBC 6.4 D RBC 3.83 Hgb 6.7 L* Hct 24.1 L MCV 62.9 L MCH 17.5 L MCHC 27.8 L RDW 21.1 H Plt Count 246 MPV 8.9 Gran % 51.8 Lymph % (Auto) 34.3 [place] % (Auto) 8.9 H Eos % (Auto) 4.5 Baso % (Auto) 0.5 Gran # 3.34 Lymph # (Auto) 2.2 [place] # (Auto) 0.6 Eos # (Auto) 0.3 Baso # (Auto) 0.03 Sodium 139 Potassium 4.1 Chloride 110 H Carbon Dioxide 24 Anion Gap 10 BUN 16 Creatinine 0.9 Est GFR ( Amer) > 60 Est GFR (Non-Af Amer) > 60 Random Glucose 104 Calcium 8.5 Total Bilirubin 0.1 L AST 22 ALT 19 Alkaline Phosphatase 42 Total Protein 6.3 Albumin 3.2 Globulin 3.1 Albumin/Globulin Ratio 1.0 L HIV 1&2 Ag/Ab, 4th Gen Nonreactive Attending/Attestation - Attestation I have personally seen and examined this patient.: Yes I have fully participated in the care of the patient.: Yes I have reviewed all pertinent clinical information: Yes
[2018-03-29 06:47] LABS: BASO # 0.03 K/mm3 (0.0-2.0); BASO % 0.5 % (0.0-3.0); EOS # 0.3 (0.0-0.7); EOS % 4.5 % (1.5-5.0); GRAN # 3.34 (1.4-6.5); GRAN % 51.8 % (50.0-68.0); LYMPH # 2.2 (1.2-3.4); LYMPH % 34.3 % (22.0-35.0); MEAN CELL VOLUME 62.9 fl (80.0-105.0); MEAN CORPUSCULAR HEMOGLOBIN 17.5 pg (25.0-35.0); MEAN CORPUSCULAR HGB CONC 27.8 g/dl (31.0-37.0); MEAN PLATELET VOLUME 8.9 fl (7.0-11.0); MONO # 0.6 (0.1-0.6); MONO % 8.9 % (1.0-6.0); RBC 3.83 10^6/uL (3.5-6.1); RED CELL DISTRIBUTION WIDTH 21.1 % (11.5-14.5); WHITE BLOOD COUNT 6.4 10^3/uL (4.5-11.0)
[2018-03-29 06:58] LABS: HEMOGLOBIN 6.7 g/dL (12.0-16.0)
[2018-03-29 07:45] LABS: ALBUMIN 3.2 g/dL (3.0-4.8); ALT/SGPT 19 U/L (7-56); AST/SGOT 22 U/L (14-36); BLOOD UREA NITROGEN 16 mg/dL (7-21); CALCIUM 8.5 mg/dL (8.4-10.5); GFR NON-AFRICAN AMERICAN > 60
[2018-03-29] MEDS: cefTRIAXone 1 gm 1 GM/100 ML BAG IVPB SCH (09:00)
--- NOTE | 2018-03-29 11:30 | CP.PCM.PN ---
Subjective - Date & Time of Evaluation Date of Evaluation: 03/29/18 Time of Evaluation: 08:00 - Subjective Subjective: Having mild headache today, no fevers, no increase in abdominal pain. Objective - Vital Signs/Intake and Output Vital Signs (last 24 hours): Temp Pulse Resp BP Pulse Ox 98.8 F 69 18 124/85 99 03/28/18 14:00 03/28/18 14:00 03/28/18 14:00 03/28/18 14:00 03/28/18 14:00 Intake and Output: 03/28/18 03/29/18 18:59 06:59 Intake Total 240 Balance 240 - Medications Medications: Current Medications Acetaminophen (Tylenol 325mg Tab) 650 mg PO Q4 PRN PRN Reason: Pain, Mild (1-3) Last Admin: 03/27/18 19:10 Dose: 650 mg Docusate Sodium (Colace) 100 mg PO DAILY PRN PRN Reason: Constipation Famotidine (Pepcid) 20 mg IVP DAILY [facility] Last Admin: 03/28/18 10:13 Dose: 20 mg Sodium Chloride (Sodium Chloride 0.45%) 1,000 mls @ 75 mls/hr IV .[id number] [facility] Last Admin: 03/28/18 07:54 Dose: 75 mls/hr Ceftriaxone Sodium (Rocephin 1 Gram Ivpb) 1 gm in 100 mls @ 100 mls/hr IVPB DAILY [facility]; Protocol Last Admin: 03/28/18 10:14 Dose: 100 mls/hr Iron Sucrose 200 mg/ Sodium (Chloride) 110 mls @ 110 mls/hr IVPB DAILY [facility] Stop: 04/02/18 18:43 Tramadol HCl (Ultram) 50 mg PO Q8H PRN PRN Reason: Pain, moderate (4-7) Last Admin: 03/28/18 17:03 Dose: 50 mg - Labs Labs: 03/28/18 10:00 03/27/18 14:15 - Constitutional Appears: Chronically Ill - Head Exam Head Exam: NORMAL INSPECTION - Respiratory Exam Respiratory Exam: Decreased Breath Sounds - Cardiovascular Exam Cardiovascular Exam: +S1, +S2 - GI/Abdominal Exam GI & Abdominal Exam: Soft. absent: Tenderness Assessment and Plan - Assessment and Plan (Free Text) Plan: Assessment possible UTI with gram positive cocci chronic anemia in this patient with uterine fibroids HTN gout Plan continue Rocephin day 2; gram positive cocci is less than 10k - may swtich to Augmentin when ready to be discharged follow up further plans of Hematology
[2018-03-29] MEDS ORDERED: DiphenhydrAMINE 50 mg/ml Inj IVP STA (12:05)
[2018-03-29 20:01] VITALS: RESP 18
[2018-03-29] MEDS: Sodium Chloride 0.45% 1,000 ML IV SCH (21:08)
[2018-03-30] MEDS: Sodium Chloride 0.45% 1,000 ML IV SCH ×2 (02:39→16:37)
[2018-03-30 07:58] LABS: ALBUMIN 3.3 g/dL (3.0-4.8); ALT/SGPT 21 U/L (7-56); AST/SGOT 16 U/L (14-36); BLOOD UREA NITROGEN 10 mg/dL (7-21); CALCIUM 9.1 mg/dL (8.4-10.5); GFR NON-AFRICAN AMERICAN > 60
[2018-03-30 08:01] LABS: BASO # 0.04 K/mm3 (0.0-2.0); BASO % 0.3 % (0.0-3.0); EOS # 0.1 (0.0-0.7); EOS % 1.1 % (1.5-5.0); GRAN # 8.01 (1.4-6.5); GRAN % 67.3 % (50.0-68.0); HEMOGLOBIN 8.4 g/dL (12.0-16.0); LYMPH % 25.4 % (22.0-35.0); MEAN CELL VOLUME 66.6 fl (80.0-105.0); MEAN CORPUSCULAR HEMOGLOBIN 19.8 pg (25.0-35.0); MEAN CORPUSCULAR HGB CONC 29.7 g/dl (31.0-37.0); MONO # 0.7 (0.1-0.6); MONO % 5.9 % (1.0-6.0); RBC 4.25 10^6/uL (3.5-6.1); RED CELL DISTRIBUTION WIDTH 25.3 % (11.5-14.5); WHITE BLOOD COUNT 11.9 10^3/uL (4.5-11.0)
[2018-03-30] MEDS: cefTRIAXone 1 gm 1 GM/100 ML BAG IVPB SCH (09:29)
[2018-03-30 09:37] LABS: MCV 60.8 fL (80.0-100.0)
--- NOTE | 2018-03-30 10:35 | CP.PCM.PN ---
<Dorita Jeffries - Last Filed: 03/30/18 10:29> Subjective - Date & Time of Evaluation Date of Evaluation: 03/30/18 Time of Evaluation: 07:00 - Subjective Subjective: GI Fellow PGY5 Progress Note Pt seen and evaluated at bedside, pt denies any abdominal pain. No rectal bleeding. Pt is s/p 2U PRBCs. ROS: A 12pt ROS was negative except as above. Objective - Vital Signs/Intake and Output Vital Signs (last 24 hours): Temp Pulse Resp BP Pulse Ox 97.6 F 67 18 133/87 100 03/30/18 06:00 03/30/18 06:00 03/30/18 06:00 03/30/18 06:00 03/30/18 06:00 Intake and Output: 03/30/18 03/30/18 06:59 18:59 Intake Total 375 Output Total 0 Balance 375 - Medications Medications: Current Medications Acetaminophen (Tylenol 325mg Tab) 650 mg PO Q4 PRN PRN Reason: Pain, Mild (1-3) Last Admin: 03/29/18 12:45 Dose: 650 mg Docusate Sodium (Colace) 100 mg PO DAILY PRN PRN Reason: Constipation Famotidine (Pepcid) 20 mg PO DAILY [facility] Last Admin: 03/30/18 09:30 Dose: 20 mg Sodium Chloride (Sodium Chloride 0.45%) 1,000 mls @ 75 mls/hr IV .[id number] [facility]ATH[facility] Last Admin: 03/30/18 02:39 Dose: Not Given Ceftriaxone Sodium (Rocephin 1 Gram Ivpb) 1 gm in 100 mls @ 100 mls/hr IVPB DAILY [facility]; Protocol Last Admin: 03/30/18 09:29 Dose: 100 mls/hr Iron Sucrose 200 mg/ Sodium (Chloride) 110 mls @ 110 mls/hr IVPB DAILY [facility] Stop: 04/02/18 18:43 Last Admin: 03/30/18 09:29 Dose: 110 mls/hr Pantoprazole Sodium (Protonix Inj) 40 mg IVP Q12 [facility] Last Admin: 03/30/18 09:30 Dose: 40 mg Tramadol HCl (Ultram) 50 mg PO Q8H PRN PRN Reason: Pain, moderate (4-7) Last Admin: 03/29/18 21:15 Dose: 50 mg - Labs Labs: 03/30/18 07:40 03/30/18 07:40 - Constitutional Appears: Non-toxic, No Acute Distress - Head Exam Head Exam: ATRAUMATIC, NORMAL INSPECTION, NORMOCEPHALIC - Eye Exam Eye Exam: EOMI, Normal appearance - ENT Exam ENT Exam: Mucous Membranes Moist - Cardiovascular Exam Cardiovascular Exam: REGULAR RHYTHM, RRR, +S1, +S2 - GI/Abdominal Exam GI & Abdominal Exam: Soft, Normal Bowel Sounds. absent: Distended, Firm, Tenderness, Organomegaly - Extremities Exam Extremities Exam: Full ROM, Normal Inspection - Neurological Exam Neurological Exam: Alert, Awake, Oriented x3 - Psychiatric Exam Psychiatric exam: Normal Affect, Normal Mood - Skin Skin Exam: Dry, Intact, Normal Color, Warm Assessment and Plan - Assessment and Plan (Free Text) Assessment: This is a 37yF presenting with SOB with a hx of anemia attributed to heavy menses and on po iron. 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 Denies any prior colonoscopy and EGD years ago with possible ulcers but denies any GI bleeding hx. No use of NSAIDs. Pt currently getting iron and s/p 2U PRBCs. 1. Iron deficiency anemia 2. Hx of Menhorragia 3. Hx of gastric ulcers Plan: -Continue supportive care -No active GI bleeding -H/H stable s/p blood transfusion -Continue to monitor H/H -Continue iron -Plan for EGD tomorrow to r/o UGIB -NPO after midnight -IV PPI bid -Will continue to follow <Emanuel Riggs V - Last Filed: 03/30/18 23:46> Objective - Vital Signs/Intake and Output Vital Signs (last 24 hours): Temp Pulse Resp BP Pulse Ox 98.4 F 69 18 125/87 99 03/30/18 22:00 03/30/18 22:00 03/30/18 22:00 03/30/18 22:00 03/30/18 22:00 Intake and Output: 03/30/18 03/31/18 18:59 06:59 Intake Total 620 Balance 620 - Medications Medications: Current Medications Acetaminophen (Tylenol 325mg Tab) 650 mg PO Q4 PRN PRN Reason: Pain, Mild (1-3) Last Admin: 03/29/18 12:45 Dose: 650 mg Docusate Sodium (Colace) 100 mg PO DAILY PRN PRN Reason: Constipation Famotidine (Pepcid) 20 mg PO DAILY [facility] Last Admin: 03/30/18 09:30 Dose: 20 mg Sodium Chloride (Sodium Chloride 0.45%) 1,000 mls @ 75 mls/hr IV .[id number] [facility] Last Admin: 03/30/18 16:37 Dose: 75 mls/hr Ceftriaxone Sodium (Rocephin 1 Gram Ivpb) 1 gm in 100 mls @ 100 mls/hr IVPB DAILY [facility]; Protocol Last Admin: 03/30/18 09:29 Dose: 100 mls/hr Iron Sucrose 200 mg/ Sodium (Chloride) 110 mls @ 110 mls/hr IVPB DAILY [facility] Stop: 04/02/18 18:43 Last Admin: 03/30/18 09:29 Dose: 110 mls/hr Pantoprazole Sodium (Protonix Inj) 40 mg IVP Q12 [facility] Last Admin: 03/30/18 21:26 Dose: 40 mg Tramadol HCl (Ultram) 50 mg PO Q8H PRN PRN Reason: Pain, moderate (4-7) Last Admin: 03/30/18 21:26 Dose: 50 mg - Labs Labs: 03/30/18 07:40 03/30/18 07:40 Attending/Attestation - Attestation I have personally seen and examined this patient.: Yes I have fully participated in the care of the patient.: Yes I have reviewed all pertinent clinical information, including history, physical exam and plan: Yes Notes (Text): This is an addendum to GI progress report dictated by the GI Fellow.The patient was seen and examined earlier. Medical records, lab studies, imagings were reviewed. Last 24 hours events reviewed. Agreed with the above treatment plan as outlined in GI Fellow 's notes with the addition of the following 03/30/18 23:45
--- NOTE | 2018-03-30 11:18 | CP.PCM.PN ---
Subjective - Date & Time of Evaluation Date of Evaluation: 03/30/18 Time of Evaluation: 08:35 - Subjective Subjective: Resting comfortably in bed, no fevers. Objective - Vital Signs/Intake and Output Vital Signs (last 24 hours): Temp Pulse Resp BP Pulse Ox 98.3 F 68 20 110/71 94 L 03/29/18 08:41 03/29/18 08:41 03/29/18 08:41 03/29/18 08:41 03/29/18 08:41 Intake and Output: 03/29/18 03/29/18 06:59 18:59 Intake Total 180 Balance 180 - Medications Medications: Current Medications Acetaminophen (Tylenol 325mg Tab) 650 mg PO Q4 PRN PRN Reason: Pain, Mild (1-3) Last Admin: 03/29/18 09:01 Dose: 650 mg Docusate Sodium (Colace) 100 mg PO DAILY PRN PRN Reason: Constipation Famotidine (Pepcid) 20 mg PO DAILY [facility] Last Admin: 03/29/18 09:00 Dose: 20 mg Sodium Chloride (Sodium Chloride 0.45%) 1,000 mls @ 75 mls/hr IV .[id number] [facility]ATH[facility] Last Admin: 03/28/18 20:53 Dose: 75 mls/hr Ceftriaxone Sodium (Rocephin 1 Gram Ivpb) 1 gm in 100 mls @ 100 mls/hr IVPB DAILY [facility]; Protocol Last Admin: 03/29/18 09:00 Dose: 100 mls/hr Iron Sucrose 200 mg/ Sodium (Chloride) 110 mls @ 110 mls/hr IVPB DAILY [facility] Stop: 04/02/18 18:43 Last Admin: 03/29/18 09:35 Dose: 110 mls/hr Tramadol HCl (Ultram) 50 mg PO Q8H PRN PRN Reason: Pain, moderate (4-7) Last Admin: 03/28/18 17:03 Dose: 50 mg - Labs Labs: 03/29/18 06:00 03/29/18 06:00 - Constitutional Appears: No Acute Distress, Chronically Ill - Head Exam Head Exam: NORMAL INSPECTION - Respiratory Exam Respiratory Exam: Decreased Breath Sounds - Cardiovascular Exam Cardiovascular Exam: +S1, +S2 - GI/Abdominal Exam GI & Abdominal Exam: Soft. absent: Tenderness Assessment and Plan - Assessment and Plan (Free Text) Plan: Assessment possible UTI with gram positive cocci chronic anemia in this patient with uterine fibroids HTN gout Plan continue Rocephin day 2; gram positive cocci is less than 10k - may swtich to Augmentin when ready to be discharged follow up further plans of Hematology
[2018-03-30 21:23] LABS: URINE BILIRUBIN NEGATIVE (NEGATIVE); URINE BLOOD LARGE (NEGATIVE); URINE GLUCOSE (UA) NEGATIVE (NEGATIVE); URINE LEUKOCYTE ESTERASE NEGATIVE Leu/uL (NEGATIVE); URINE PROTEIN NEGATIVE mg/dL (<30 mg/dL); URINE UROBILINOGEN 0.2 E.U./dL (<1 E.U./dL)
[2018-03-30 21:27] LABS: URINE APPEARANCE SL CLOUDY (CLEAR); URINE COLOR YELLOW (YELLOW)
[2018-03-30 22:11] LABS: URINE AMORPHOUS SEDIMENT MODERATE; URINE BACTERIA MANY (NEG); URINE RBC 25 - 30 /hpf (0-2)
--- NOTE | 2018-03-31 01:34 | PN ---
DATE: 03/29/2018 SUBJECTIVE: Patient is comfortable. Getting IV iron, getting blood transfusion. Seen by pleater, . PHYSICAL EXAMINATION: VITAL SIGNS: Temperature 98.5, heart rate 68, blood pressure 128/83, respirations 18, saturations 98% on room air. HEAD AND NECK: Normal. No JVD, no thyromegaly. CHEST: Clear bilaterally. CARDIAC: First sound and second sound normal. ABDOMEN: Soft, obese, nontender. EXTREMITIES: No edema. No calf tenderness. NEUROLOGIC: Normal. LABORATORY DATA: Her urinalysis shows gram-positive cocci. Her HIV 1 and 2 negative. Her hematology shows white count 6.4, hemoglobin 6.7, hematocrit 24.1, platelets 246. Chemistry, sodium 139, potassium 4.1, chloride 110, bicarb 24, BUN 16, creatinine 0.9. Liver function test is normal. IMPRESSION: 1. Severe anemia. Continue blood transfusions, IV iron, seen by Dr. Langford. Continue current therapy. We will get Gastroenterology evaluation too. Ultrasound shows fibroids. 2. Urinary tract infection. Continue Rocephin. PLAN: Continue current treatment. Currently on IV iron, IV fluids, IV Protonix, Pepcid, Rocephin 1 g, and normal saline at 70 mL per hour, Tylenol and tramadol for back pain. Patient also has been advised to move around, she is and we will follow up clinically. Patient should follow up with her Gynecology on discharge. Faisal Alvarado MD
--- NOTE | 2018-03-31 04:03 | PN ---
DATE: 03/30/2018 HEMATOLOGY/ONCOLOGY PROGRESS NOTE LOCATION: The patient is in room 560, bed 2. SUBJECTIVE: This is a follow-up visit for the patient who was seen by me yesterday. The patient is seen and evaluated at the bedside. Denies any abdominal pain, rectal bleeding, fevers, or chills. She had treatments of packed cells last night. Tolerated the treatment well. REVIEW OF SYSTEMS: Twelve-point review of systems is negative except for what is mentioned in the subjective. OBJECTIVE: GENERAL: The patient is awake, alert, oriented, in no acute distress. The patient is examined in bed. VITAL SIGNS: T-max is 97.6, pulse is 67, respirations 18, blood pressure 133/87, and pulse ox is 100% on room air. HEENT: Conjunctivae pale. Sclerae are anicteric. Pupils are equal, reactive to light and accommodation. LUNGS: Reveals it to be clear to percussion and auscultation. HEART: Reveals S1, S2 to be normal. No gallop or murmur is heard. ABDOMEN: Soft, nontender. No rebound, rigidity, or guarding is noted. Bowel sounds are present. EXTREMITIES: Reveals full range of motion. There is no cyanosis, clubbing, or edema noted. NEUROLOGIC: Reveals heart functions to be normal. No focal deficits are noted. SKIN: Reveals it to be dry and intact with normal in color. MEDICATIONS: The patient's medications were reviewed. They include the following: She is on Colace 100 daily, famotidine 20 mg daily. She is on IV fluids, D5 half normal saline at 75 mL an hour. She is on Rocephin 1 g IV daily for urinary tract infection. She is on IV iron supplementation, iron sucrose 200 mg IV daily . The patient is on pantoprazole 40 mg IV every 12 hours. She is on tramadol 50 mg p.o. every 8 hours p.r.n. for pain. LABORATORY DATA: Today's blood work reveals a white count of 11.9, hemoglobin 8.4, hematocrit 28.3, and platelet count of 253,000. Sodium is 138, K is 3.8, chloride is 111, CO2 is 22, BUN is 10, creatinine 0.8, and glucose is 101. ASSESSMENT, NOTES, AND PLAN: I told the patient that once the blood count is up, we can probably have the metal polisher and buffer apprentice schedule for outpatient evaluation for probably robotic surgery, for possible hysterectomy, and/or other procedures to treat for the menometrorrhagia that the patient has. She has a combination of fibroids and ovarian cyst that may be all attended to in one setting with the surgical plans. The patient in the meantime tells me that she has already been seen by Gastrointestinal today, and she is going to have an upper endoscopy. She tells me that Gastrointestinal is going to be seeing her to make sure there are no gastrointestinal causes for the blood loss as well. Continue the IV iron in the meantime. Hemoglobin electrophoresis in the meantime is pending at this point in time. Routine post exam instructions have been given to the patient. A.m. laboratory work has been ordered. We will follow the patient and make appropriate recommendations. In the meantime, we will continue with IV iron. Other blood work including B12 and folate levels are still pending as well. Time spent with the patient is about 45 minutes and correlating all the information and discussing at length with the patient as well. I have given the patient my cell number also for her obstetrics/gynecology doctor to talk to me if he has any questions regarding her blood transfusions. Cleve Langford MD
[2018-03-31] MEDS: Sodium Chloride 0.45% 1,000 ML IV SCH ×3 (05:21→09:17)
[2018-03-31 06:44] LABS: BASO # 0.06 K/mm3 (0.0-2.0); BASO % 0.7 % (0.0-3.0); EOS # 0.2 (0.0-0.7); EOS % 2.8 % (1.5-5.0); GRAN # 4.69 (1.4-6.5); GRAN % 56.2 % (50.0-68.0); HEMOGLOBIN 8.8 g/dL (12.0-16.0); LYMPH # 2.8 (1.2-3.4); LYMPH % 33.3 % (22.0-35.0); MEAN CELL VOLUME 67.8 fl (80.0-105.0); MEAN CORPUSCULAR HEMOGLOBIN 19.7 pg (25.0-35.0); MEAN PLATELET VOLUME 8.8 fl (7.0-11.0); MONO # 0.6 (0.1-0.6); RBC 4.47 10^6/uL (3.5-6.1); RED CELL DISTRIBUTION WIDTH 25.9 % (11.5-14.5); WHITE BLOOD COUNT 8.3 10^3/uL (4.5-11.0)
[2018-03-31 07:21] LABS: ALB/GLOB RATIO 1.1 (1.1-1.8); ALBUMIN 3.5 g/dL (3.0-4.8); ALT/SGPT 22 U/L (7-56); AST/SGOT 24 U/L (14-36); BLOOD UREA NITROGEN 11 mg/dL (7-21); CALCIUM 8.8 mg/dL (8.4-10.5); GFR NON-AFRICAN AMERICAN 56
--- NOTE | 2018-03-31 07:36 | CP.PCM.PN ---
Subjective - Date & Time of Evaluation Date of Evaluation: 03/31/18 Time of Evaluation: 11:30 - Subjective Subjective: Tomas Esqueda-Internal Medicine Resident- Hematology Oncology Progress Note Subjective: Patient seen and examined. No acute events overnight. Offers no new complaints at this time. Denies fever, chills, chest pain, SOB. 12 Point ROS negative except as indicated in HPI Physical Examination: - Constitutional Appears: Non-toxic, No Acute Distress - Head Exam Head Exam: ATRAUMATIC, NORMOCEPHALIC - Eye Exam Eye Exam: EOMI, Normal appearance, PERRL. absent: Conjunctival injection, Nystagmus, Periorbital swelling, Periorbital tenderness, Scleral icterus - ENT Exam ENT Exam: Mucous Membranes Moist - Neck Exam Neck exam: Positive for: Full Rom, Normal Inspection - Respiratory Exam Respiratory Exam: Clear to Auscultation Bilateral, NORMAL BREATHING PATTERN - Cardiovascular Exam Cardiovascular Exam: REGULAR RHYTHM, RRR, +S1, +S2 - GI/Abdominal Exam GI & Abdominal Exam: Normal Bowel Sounds, Soft. absent: Tenderness - Extremities Exam Extremities exam: Negative for: calf tenderness - Neurological Exam Neurological exam: Alert, Oriented x3 - Psychiatric Exam Psychiatric exam: Normal Affect, Normal Mood - Skin Skin Exam: Dry, Intact, Normal Color, Warm Assessment and Plan: 37 year old female with a past medical history significant for irregular/heavy menstrual cycles with associated DAIJA, HTN, uterine fibroids and gout who presented with SOB, headache and weakness. Hematology was consulted for patients history of anemia. -IV Venofer 200mg daily for five days -Recommend outpatient follow up with her cut lace machine operator as soon as possible after discharge -Further management by consultants and primary medical doctor Patient case discussed with and plan approved by attending physician, Dr. Amber alvarenga. Objective - Vital Signs/Intake and Output Vital Signs (last 24 hours): Temp Pulse Resp BP Pulse Ox 98.4 F 69 18 125/87 99 03/30/18 22:00 03/30/18 22:00 03/30/18 22:00 03/30/18 22:00 03/30/18 22:00 - Medications Medications: Current Medications Acetaminophen (Tylenol 325mg Tab) 650 mg PO Q4 PRN PRN Reason: Pain, Mild (1-3) Last Admin: 03/29/18 12:45 Dose: 650 mg Docusate Sodium (Colace) 100 mg PO DAILY PRN PRN Reason: Constipation Famotidine (Pepcid) 20 mg PO DAILY [facility] Last Admin: 03/30/18 09:30 Dose: 20 mg Sodium Chloride (Sodium Chloride 0.45%) 1,000 mls @ 75 mls/hr IV .[id number] [facility] Last Admin: 03/31/18 05:21 Dose: Not Given Ceftriaxone Sodium (Rocephin 1 Gram Ivpb) 1 gm in 100 mls @ 100 mls/hr IVPB DAILY [facility]; Protocol Last Admin: 03/30/18 09:29 Dose: 100 mls/hr Iron Sucrose 200 mg/ Sodium (Chloride) 110 mls @ 110 mls/hr IVPB DAILY [facility] Stop: 04/02/18 18:43 Last Admin: 03/30/18 09:29 Dose: 110 mls/hr Pantoprazole Sodium (Protonix Inj) 40 mg IVP Q12 [facility] Last Admin: 03/30/18 21:26 Dose: 40 mg Tramadol HCl (Ultram) 50 mg PO Q8H PRN PRN Reason: Pain, moderate (4-7) Last Admin: 03/30/18 21:26 Dose: 50 mg - Labs Labs: 03/31/18 06:15 03/31/18 06:15
[2018-03-31 07:38] VITALS: TEMP 98.2
--- NOTE | 2018-03-31 08:18 | HP ---
DATE OF EXAM: <03/30/2018> HISTORY OF PRESENT ILLNESS: The patient came to the hospital because of general weakness, back pain, mild cough, nonspecific symptoms. During the evaluation in the emergency room, found to be anemic and the urine shows wbc's and was admitted for anemia, and urinary tract infections. She had similar symptoms in the past; however, the patient denied nausea, vomiting, diarrhea, fever or chills. PAST MEDICAL HISTORY: As I mentioned before, she is having had a history of fibroids, seen bull riveter as outpatient, and history of anemia. SOCIAL HISTORY: Smoker. No drinking. No alcohol. She smoke half a pack a day. Some days she smokes and some days does not. HOME MEDICATIONS: She takes Zofran ODT, Zanaflex 1 twice a day, Protonix once a day, Macrodantin twice a day, and ibuprofen 1 tablet twice a day. ALLERGIES: SHE HAS NO DRUG ALLERGY, BUT SHE IS ALLERGIC TO COCONUT OIL AND MOOKIE. REVIEW OF SYSTEMS: She does complain of lower back pain. She does complain of heavy menses. No chest pain. No short of breath. No wheezing. No weakness. No other complaints. LABORATORY DATA: The patient has initial lab shows sodium 138, potassium 4.5, chloride 108, bicarb 21, BUN is 10, creatinine is 1. Total creatinine kinase 289 and her protein 7.4, albumin 4, globulin 3.4. CBC shows white count of 15.1, hemoglobin 7.7, hematocrit 27.4, platelets 254. Chest x-ray shows no active disease. The patient also has an electrocardiogram, which shows sinus rhythm, normal sinus EKG. Normal QT and QTc. Other laboratory including UA shows lot of wbc's in the urine, too numerous to count wbc's, too numerous to count red blood cells. She also had serology for HIV when she got admitted and influenza and group B beta-hemolytic and was negative. IMPRESSION AND PLAN: 1. Acute urinary tract infections, we will do the culture, Rocephin 1 g and Infectious Disease consult. 2. Severe anemia probably due to her heavy menses or fibroid. We will do ultrasound of the abdomen and pelvis. We will get Oncology consult and get to follow up on that. 3. Smoker, tobacco abuse. We will give these options to stop smoking, she seems like . We will offer her alternative to smoking, alter her nicotine patch. 4. Low back pain probably secondary to fibroid may be, we will continue Tylenol, maybe Tylenol No. 3 or tramadol p.r.n. 5. Continue current therapy. Follow up clinically. The patient is advised to move out of bed to chair. Faisal Alvarado MD
[2018-03-31 08:49] LABS: INR 0.94; PROTHROMBIN TIME 10.8 SECONDS (9.4-12.5)
[2018-03-31] MEDS: cefTRIAXone 1 gm 1 GM/100 ML BAG IVPB SCH (09:18)
--- NOTE | 2018-03-31 10:21 | CP.PCM.PN ---
Subjective - Date & Time of Evaluation Date of Evaluation: 03/31/18 Time of Evaluation: 07:55 - Subjective Subjective: Comfortable in bed, no abdominal pain, no fevers, not in distress. No dysuria. Objective - Vital Signs/Intake and Output Vital Signs (last 24 hours): Temp Pulse Resp BP Pulse Ox 97.6 F 67 18 133/87 100 03/30/18 06:00 03/30/18 06:00 03/30/18 06:00 03/30/18 06:00 03/30/18 06:00 Intake and Output: 03/30/18 03/30/18 06:59 18:59 Intake Total 375 Output Total 0 Balance 375 - Medications Medications: Current Medications Acetaminophen (Tylenol 325mg Tab) 650 mg PO Q4 PRN PRN Reason: Pain, Mild (1-3) Last Admin: 03/29/18 12:45 Dose: 650 mg Docusate Sodium (Colace) 100 mg PO DAILY PRN PRN Reason: Constipation Famotidine (Pepcid) 20 mg PO DAILY [facility] Last Admin: 03/30/18 09:30 Dose: 20 mg Sodium Chloride (Sodium Chloride 0.45%) 1,000 mls @ 75 mls/hr IV .[id number] [facility] Last Admin: 03/30/18 02:39 Dose: Not Given Ceftriaxone Sodium (Rocephin 1 Gram Ivpb) 1 gm in 100 mls @ 100 mls/hr IVPB DAILY [facility]; Protocol Last Admin: 03/30/18 09:29 Dose: 100 mls/hr Iron Sucrose 200 mg/ Sodium (Chloride) 110 mls @ 110 mls/hr IVPB DAILY [facility] Stop: 04/02/18 18:43 Last Admin: 03/30/18 09:29 Dose: 110 mls/hr Pantoprazole Sodium (Protonix Inj) 40 mg IVP Q12 [facility] Last Admin: 03/30/18 09:30 Dose: 40 mg Tramadol HCl (Ultram) 50 mg PO Q8H PRN PRN Reason: Pain, moderate (4-7) Last Admin: 03/29/18 21:15 Dose: 50 mg - Labs Labs: 03/30/18 07:40 03/30/18 07:40 - Constitutional Appears: Non-toxic, Chronically Ill - Head Exam Head Exam: NORMAL INSPECTION - Neck Exam Neck Exam: absent: Meningismus - Respiratory Exam Respiratory Exam: Decreased Breath Sounds - Cardiovascular Exam Cardiovascular Exam: +S1, +S2 - GI/Abdominal Exam GI & Abdominal Exam: Soft. absent: Tenderness Assessment and Plan - Assessment and Plan (Free Text) Plan: Assessment consider UTI/cystitis with gram positive cocci chronic anemia in this patient with uterine fibroids HTN gout Plan continue on Augmentin day 3 of 3-5 days follow up further plans of Hematology
[2018-03-31] MEDS ORDERED: Sodium Chloride 0.9% 1,000 ML IV SCH (12:30)
[2018-03-31] MEDS ORDERED: Propofol 10 mg/ml Inj (20 ML) ONE (15:45)
--- NOTE | 2018-03-31 17:45 | CP.PCM.PCO ---
Physician Communication Note - Physician Communication Note Physician Communication Note: Can d/c from GI standpoint.Protonix 40mg BID 2 mths.F/u GI for repeat EGD
[2018-03-31] MEDS ORDERED: Amoxicillin-Clav 500-125 mg Tab PO SCH (22:00)
[2018-04-01 00:43] VITALS: BP 139/87; PULSE 50; O2SAT 96
[2018-04-01 03:14] LABS: HEMOGLOBIN A 97.3 Percent (>96.0); HEMOGLOBIN A2 1.7 Percent (1.8-3.5)
--- NOTE | 2018-04-02 15:43 | DS ---
HISTORY OF PRESENT ILLNESS: The patient was admitted with anemia and was given transfusions, seen by Dr. Langford, 2 units of packed RBCs, IV iron, and also GI consult was advised to the patient and underwent upper endoscopy which showed antral gastritis and erosive gastritis. The patient has no active bleeding, stable hemodynamically. She has seen and talked to her toll test desk worker who is planning to do a partial hysterectomy. She has planned as outpatient. She is medically stable. She has no history of cardiac disease and she will be discharged. She, in the hospital, was seen by GI consult, Dr. Riggs; hematology-oncology, Dr. Langford, and also she was given IV iron, blood transfusions, endoscopy, CT abdomen and pelvis which shows multiple fibroids. The patient is discharged on 03/31/2018. Her physical exam is stable. PHYSICAL EXAMINATION: VITAL SIGNS: Temperature 98, heart rate in the 50s, blood pressure 139/87, respirations 18, sats 98% to 100%. HEAD AND NECK: Normal. No JVD. No thyromegaly. CHEST: Clear bilaterally. CARDIAC: First sound and second sound normal. ABDOMEN: Soft, nontender. EXTREMITIES: No edema. NEUROLOGIC: . LABORATORY DATA: Her white count 8.3, hemoglobin 8.8, hematocrit 30.3, and platelets 276,000. Chemistry; sodium 140, potassium 4.2, chloride 107, bicarbonate 28, BUN 11, creatinine 1.2. Liver function test is normal. DISCHARGE DIAGNOSES: 1. Chronic acute worsening of her anemia due to worsening of her iron-deficiency anemia. 2. Severe iron-deficiency anemia. 3. Uterine fibroids with menorrhagia. 4. Gastritis, duodenitis. PLAN: To give iron pills, Colace, Protonix 40 mg, and follow up with the toll test desk worker as outpatient. See me in the office within a week or two. Faisal Alvardao MD
== END 2018-03-31 21:40 | disposition home or self-care (01) | DRG 321 ==
LOC: ED 13:31 → ERH 15:41 → 5RSO 17:32 → 5RNO 17:33
PROVIDERS: ADMIT Internal Medicine; ATTEND Internal Medicine
PROC: 0DB68ZX Excision of Stomach, Via Natural or Artificial Opening Endoscopic, Diagnostic (ICD-10-PCS; 2018-03-31)
PROC: 0DB98ZX Excision of Duodenum, Via Natural or Artificial Opening Endoscopic, Diagnostic (ICD-10-PCS; principal; 2018-03-31 13:00)
DX: N39.0 Urinary tract infection, site not specified (principal); I10 Essential (primary) hypertension; D25.9 Leiomyoma of uterus, unspecified; D50.9 Iron deficiency anemia, unspecified; F17.210 Nicotine dependence, cigarettes, uncomplicated; K29.50 Unspecified chronic gastritis without bleeding; K29.80 Duodenitis without bleeding; F41.9 Anxiety disorder, unspecified; J06.9 Acute upper respiratory infection, unspecified; J40 Bronchitis, not specified as acute or chronic; K21.9 Gastro-esophageal reflux disease without esophagitis; M10.9 Gout, unspecified; N92.0 Excessive and frequent menstruation with regular cycle; Z80.0 Family history of malignant neoplasm of digestive organs; Z82.49 Family history of ischemic heart disease and other diseases of the circulatory system; Z83.3 Family history of diabetes mellitus; Z87.01 Personal history of pneumonia (recurrent); Z87.11 Personal history of peptic ulcer disease

== ENCOUNTER 2018-04-07 19:40 | Inpatient (IN) | payer MEDICAID ==
[2018-04-07 19:51] VITALS: BMI 29.9
[2018-04-07] MEDS ORDERED: Albuterol-Ipratrop 3 mg / 0.5 (3 ml) UD IH STA (20:07)
--- NOTE | 2018-04-07 20:10 | ED PDOC ---
Arrival/HPI - General Chief Complaint: Shortness Of Breath Time Seen by Provider: 04/07/18 19:46 Historian: Patient - History of Present Illness Narrative History of Present Illness (Text): 04/07/18 20:06 37 year old female, with past medical history of bronchitis, HTN, Gout, Gastritis, and Fibroids, presents to the Emergency department complaining of shortness of breath since since 3 hours. Patient states she was in a car coming back home from [facility] when she developed wheezing, which has been progressively worsening since onset prompting her to present to the ED for medical evaluation. Patient informs associated chest tightness/pain radiating to her back. Patient reports worsening symptoms with deep inspirations and denies taking any treatments prior to arrival. Additionally, patient reports noticing "black and blues" to her left lower leg since couple of days but denies any pain or history of DVT. Patient denies any other somatic complaints. Patient denies any fevers, chills, headache, dizziness, abdominal pain, nausea, vomiting, diarrhea, back pain, neck pain, or any other complaints. PMD: Dr. Alvarado Time/Duration: 1-3 hours Symptom Onset: Gradual Symptom Course: Unchanged Quality: Tightness Activities at Onset: Light Context: Home Past Medical History - Provider Review Nursing Documentation Reviewed: Yes - Past History Past History: No Previous - Infectious Disease Hx of Infectious Diseases: None - Tetanus Immunization Tetanus Immunization: Unknown - Past Medical History Past Medical History: No Previous - Cardiac Hx Cardiac Disorders: Yes Hx Hypertension: Yes - Pulmonary Hx Respiratory Disorders: Yes (SMOKES CIGARETTES LESS THAN 1/2 PPD.) Hx Bronchitis: Yes Hx Pneumonia: Yes - Neurological Hx Neurological Disorder: No - HEENT Hx HEENT Disorder: No - Renal Hx Renal Disorder: No - Endocrine/Metabolic Hx Endocrine Disorders: No - Hematological/Oncological Hx Blood Transfusions: No Hx Blood Transfusion Reaction: No - Integumentary Hx Dermatological Disorder: No - Musculoskeletal/Rheumatological Hx Musculoskeletal Disorders: Yes Hx Falls: No Hx Gout: Yes - Gastrointestinal Hx Gastrointestinal Disorders: Yes Hx Gastroesophageal Reflux: Yes - Genitourinary/Gynecological Hx Genitourinary Disorders: No Other/Comment: cyst 2 years ago on left ovary, fibroids - Psychiatric Hx Psychophysiologic Disorder: Yes Hx Depression: Yes Hx Substance Use: No Other/Comment: substance abuse - Past Surgical History Past Surgical History: No Previous - Surgical History Other/Comment: endoscopy dx with gastritis - Anesthesia Hx Anesthesia Reactions: No Hx Malignant Hyperthermia: No - Suicidal Assessment Feels Threatened In Home Enviroment: No Family/Social History - Physician Review Nursing Documentation Reviewed: Yes Family/Social History: Unknown Family HX Smoking Status: Current Some Days Smoker Hx Alcohol Use: No Hx Substance Use: No Substance used: cocaine Hx Substance Use Treatment: Yes Allergies/Home Meds Allergies/Adverse Reactions: Allergies coconut oil Allergy (Verified 03/27/18 18:44) ANAPHYLAXIS calixto Allergy (Verified 03/27/18 18:44) ANAPHYLAXIS Home Medications: Home Meds Medication Instructions Recorded Confirmed Ibuprofen [Motrin Tab] 1 tab PO BID 03/01/18 03/27/18 Pantoprazole [Protonix EC Tab] 1 tab PO DAILY 03/01/18 03/27/18 tiZANidine [Zanaflex] 1 tab PO BID PRN 03/01/18 03/27/18 Nitrofurantoin Macrocrystal 100 mg PO BID 03/27/18 03/27/18 [Nitrofurantoin] Review of Systems - Physician Review All systems were reviewed & negative as marked: Yes - Review of Systems Constitutional: absent: Fevers Respiratory: SOB Cardiovascular: Chest Pain Gastrointestinal: absent: Abdominal Pain, Diarrhea, Nausea, Vomiting Genitourinary Female: absent: Dysuria, Urine Output Changes Musculoskeletal: absent: Back Pain, Neck Pain Skin: absent: Rash Neurological: absent: Headache, Dizziness Physical Exam Vital Signs Reviewed: Yes Vital Signs Temp Pulse Resp BP Pulse Ox 04/07/18 19:54 100.6 F H 89 18 118/70 100 Temperature: Afebrile Blood Pressure: Normal Pulse: Regular Respiratory Rate: Normal Appearance: Positive for: Well-Appearing, Non-Toxic, Comfortable Pain Distress: None Mental Status: Positive for: Alert and Oriented X 3 - Systems Exam Head: Present: Atraumatic, Normocephalic Pupils: Present: PERRL Extroacular Muscles: Present: EOMI Conjunctiva: Present: Normal Respiratory/Chest: Present: Clear to Auscultation, Good Air Exchange, Tachypneic. No: Respiratory Distress, Accessory Muscle Use Cardiovascular: Present: Regular Rate and Rhythm, Normal S1, S2. No: Murmurs Abdomen: No: Tenderness, Distention, Peritoneal Signs Back: Present: Normal Inspection Upper Extremity: Present: Normal Inspection. No: Cyanosis, Edema Lower Extremity: Present: Tenderness (left lower leg mild tenderness). No: Edema Neurological: Present: GCS=15, CN II-XII Intact, Speech Normal Skin: Present: Warm, Dry, Normal Color. No: Rashes Psychiatric: Present: Alert, Oriented x 3, Normal Insight, Normal Concentration Medical Decision Making ED Course and Treatment: 04/07/18 20:11 Impression: 37 year old female presents to the Emergency department complaining of shortness of breath and chest tightness. Differential Diagnosis included but are not limited to: Bronchitis r/o PNA, DVT, Chest pain r/o ACS Plan: -- EKG -- Labs -- Chest X-ray -- Duoneb -- Solumedrol -- Tylenol -- Rapid Flu -- US of Lower extremity -- Reassess and disposition Prior Visits: Notes and results from previous visits were reviewed. Progress Notes: 04/07/18 21:03 Gave Toradol for pain. WBC elevated. CXR pending. Sign out to Dr. Esparza to f/u CXR, Sono results, reevaluate and disposition. - EKG Interpretation EKG Interpretation (Text): 04/07/18 20:36 EKG: Ordered, reviewed, and independently interpreted the EKG. Rate : 90 BPM Rhythm : Sinus Arrhythmia Interpretation : No ST-segment elevations or depressions, no T-wave inversions, normal intervals. Interpreted by ED Physician: Yes Type: 12 lead EKG Wells Criteria for PE - Wells Criteria for Pulmonary Embolism Clinical Signs and Symptoms of DVT: No P.E is #1 Diagnosis, or Equally Likely: No Heart Rate >100: No Immobilization at least 3 days;Surgery previous 4 weeks: No Previous, objectively diagnosed PE or DVT: No Hemoptysis: No Malignancy w/treatment within 6 months, or palliative: No Total Score: 0 - Scribe Statement The provider has reviewed the documentation as recorded by the Matthewibedna Wilson. All medical record entries made by the Scribe were at my direction and personally dictated by me. I have reviewed the chart and agree that the record accurately reflects my personal performance of the history, physical exam, medical decision making, and the department course for this patient. I have also personally directed, reviewed, and agree with the discharge instructions and disposition. Disposition/Present on Arrival - Present on Arrival Any Indicators Present on Arrival: No History of DVT/PE: No History of Uncontrolled Diabetes: No Urinary Catheter: No History of Decub. Ulcer: No History Surgical Site Infection Following: None - Disposition Have Diagnosis and Disposition been Completed?: No Diagnosis: Shortness of breath, Chest pain, Leukocytosis Disposition Time: 21:02 Patient Problems: Current Active Problems Problem Status Onset Chest pain Acute Leukocytosis Acute Shortness of breath Acute Condition: FAIR Discharge Instructions (ExitCare): Chest Pain (ED) Forms: [email or web address] (Icelandic)
[2018-04-07 20:39] LABS: BASO # 0.01 K/mm3 (0.0-2.0); BASO % 0.1 % (0.0-3.0); EOS % 0.1 % (1.5-5.0); GRAN # 17.98 (1.4-6.5); GRAN % 94.6 % (50.0-68.0); LYMPH # 0.7 (1.2-3.4); LYMPH % 3.4 % (22.0-35.0); MEAN CORPUSCULAR HEMOGLOBIN 21.1 pg (25.0-35.0); MEAN CORPUSCULAR HGB CONC 29.7 g/dl (31.0-37.0); MONO # 0.3 (0.1-0.6); MONO % 1.8 % (1.0-6.0); PLATELET COUNT 252 10^3/uL (120.0-450.0); RBC 5.27 10^6/uL (3.5-6.1); RED CELL DISTRIBUTION WIDTH 30.1 % (11.5-14.5)
[2018-04-07 20:44] LABS: HEMOGLOBIN 11.1 g/dL (12.0-16.0)
[2018-04-07 20:50] LABS: INR 0.97; PARTIAL THROMBOPLASTIN TIME 25.1 Seconds (25.1-36.5); PROTHROMBIN TIME 11.1 SECONDS (9.4-12.5)
[2018-04-07 20:52] LABS: D DIMER < 200 ng/mlDDU (0-243)
[2018-04-07 20:56] LABS: BLOOD UREA NITROGEN 17 mg/dL (7-21); CALCIUM 9.4 mg/dL (8.4-10.5); GFR NON-AFRICAN AMERICAN > 60
[2018-04-07 21:01] LABS: TROPONIN I < 0.01 ng/mL
[2018-04-07 21:04] LABS: CK-MB 0.7 ng/mL (0.0-3.6)
[2018-04-07 21:45] LABS: BAND 5 % (0-2); LYMPHOCYTE 5 % (22.0-35.0); MONOCYTE 3 % (1.0-6.0); NEUTROPHIL 87 % (50.0-70.0); PLATELET ESTIMATE NORMAL (NORMAL)
[2018-04-07 21:46] LABS: ANISOCYTOSIS 1+; HYPOCHROMIA 1+; POIKILOCYTOSIS SLIGHT
[2018-04-07] MEDS ORDERED: Iohexol 350 MG/100 ML VIAL ONE (22:08)
[2018-04-07 23:04] LABS: URINE BILIRUBIN NEGATIVE (NEGATIVE); URINE BLOOD NEGATIVE (NEGATIVE); URINE GLUCOSE (UA) NEGATIVE (NEGATIVE); URINE LEUKOCYTE ESTERASE TRACE Leu/uL (NEGATIVE); URINE PROTEIN NEGATIVE mg/dL (<30 mg/dL); URINE UROBILINOGEN 0.2 E.U./dL (<1 E.U./dL)
--- NOTE | 2018-04-07 23:11 | ED PDOC ---
Physical Exam Vital Signs Reviewed: Yes Vital Signs Temp Pulse Resp BP Pulse Ox 04/07/18 21:56 88 18 100 04/07/18 21:27 99.6 F 04/07/18 20:27 101.4 F H 04/07/18 19:54 100.6 F H 89 18 118/70 100 Temperature: Febrile Blood Pressure: Normal Pulse: Regular Respiratory Rate: Normal Appearance: Positive for: Well-Appearing, Non-Toxic, Comfortable Pain Distress: None Mental Status: Positive for: Alert and Oriented X 3 Medical Decision Making ED Course and Treatment: 04/07/18 23:00 Patient was signed out to me by Dr. Marroquin pending follow up sonogram and chest x-ray, both of which have negative preliminary readings. CTA chest ordered. 04/07/18 23:09 CTA Chest with Intravenous Contrast for Pulmonary Embolism CLINICAL HISTORY: CHEST PAIN SOB TECHNIQUE: Axial CTA images of the chest with intravenous contrast using a pulmonary emb olism protocol. Reconstructed images were created and reviewed. 408.00 mGy-cm CONTRAST: With; OMNI 350 100CC was administered without incident. COMPARISON: None provided. FINDINGS: PULMONARY ARTERIES A pulmonary embolism is not identified. AORTA There is no evidence for aneurysm or dissection of the thoracic aorta. LUNGS The lungs appear clear. PLEURAL SPACES No infiltrates, masses, or pleural effusions. HEART Heart size is within normal limits. No significant pericardial effusion. LYMPH NODES No lymphadenopathy is evident. BONES No focal osseous abnormality or acute fracture. UPPER ABDOMEN Images of the upper abdomen are unremarkable. 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 A pulmonary embolism is not identified. 2. 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 No infiltrates, masses, or pleural effusions. 04/07/18 23:[address] Alvarado and patient will be admitted under his service. Patient will also be placed on antibiotics as per Dr. Alvarado. - Lab Interpretations Lab Results: 04/07/18 20:05 04/07/18 20:05 Lab Results 04/07/18 20:19: Influenza Typ A,B (EIA) Negative for flu a/b 11/26/18 20:05: PT 11.1, INR 0.97, APTT 25.1, D-Dimer, Quantitative < 200 04/07/18 20:05: Sodium 137, Potassium 3.8, Chloride 109 H, Carbon Dioxide 19 L, Anion Gap 13, BUN 17, Creatinine 0.9, Est GFR ( Amer) > 60, Est GFR (Non- Af Amer) > 60, Random Glucose 100, Calcium 9.4, Magnesium 1.7, Lactate Dehydrogenase 538, Total Creatine Kinase 246 H, CK-MB (CK-2) 0.7, CK-MB (CK-2) % Cancelled, Troponin I < 0.01 04/07/18 20:05: WBC 19.0 H D, RBC 5.27, Hgb 11.1 L D, Hct 37.4, MCV 71.0 L D, MCH 21.1 L, MCHC 29.7 L, RDW 30.1 H, Plt Count 252, Gran % 94.6 H, Lymph % (Auto) 3.4 L, Emmons % (Auto) 1.8, Eos % (Auto) 0.1 L, Baso % (Auto) 0.1, Gran # 17.98 H, Lymph # (Auto) 0.7 L, Emmons # (Auto) 0.3, Eos # (Auto) 0.0, Baso # (Auto) 0.01, Neutrophils % (Manual) 87 H, Band Neutrophils % 5 H, Lymphocytes % (Manual) 5 L, Monocytes % (Manual) 3, Platelet Evaluation Normal, Hypochromasia 1+, Poikilocytosis (manual Slight, Anisocytosis (manual) 1+ - RAD Interpretation Radiology Orders: 04/07/18 20:06 CHEST PORTABLE [RAD] Stat 04/07/18 20:56 DUPLEX LOWER EXTRM VEIN BILAT [US] Stat 04/07/18 21:58 ANGIO CHEST PE PROTOCOL [CT] Stat - Medication Orders Current Medication Orders: Discontinued Medications Acetaminophen (Tylenol 325mg Tab) 650 mg PO STAT STA Stop: 04/07/18 20:08 Last Admin: 04/07/18 20:27 Dose: 650 mg MAR Pain/Vitals Document 04/07/18 20:27 RG (Rec: 04/07/18 20:27 [id number] Pain Reassessment Is This A Pain ReAssessment? No Vitals Temperature (97.6 F-99.6 F) 101.4 F Temperature Source Oral Re-Assess: [facility] Pain/Vitals Document 04/07/18 21:27 (Rec: 04/07/18 22:06 [id number] Vitals Temperature (97.6 F-99.6 F) 99.6 F Temperature Source Oral Albuterol/Ipratropium (Duoneb 3 Mg/0.5 Mg (3 Ml) Ud) 3 ml IH STAT STA Stop: 04/07/18 20:08 Last Admin: 04/07/18 20:07 Dose: 3 ml Ketorolac Tromethamine (Toradol) 30 mg IVP STAT STA Stop: 04/07/18 20:51 Last Admin: 04/07/18 20:58 Dose: 30 mg [facility] Pain Assessment Document 04/07/18 20:58 (Rec: 04/07/18 21:01 [id number] Pain Reassessment Is this a pain reassessment? Yes Sleep Is patient sleeping during reassessment? No Presence of Pain Presence of Pain Yes Location Pain Location Body Site Chest Description Description Intermittent IVP Administration Document 04/07/18 20:58 (Rec: 04/07/18 21:[id number] Charges for Administration # of IVP Administrations 1 Re-Assess: [facility] Pain Assessment Document 04/07/18 21:58 (Rec: 04/07/18 22:39 [id number] Pain Reassessment Is this a pain reassessment? Yes Presence of Pain Presence of Pain Yes Description Pain not relieved and LIP/MD was Yes notified Methylprednisolone (Solu-Medrol) 125 mg IVP STAT STA Stop: 04/07/18 20:06 Last Admin: 04/07/18 20:07 Dose: 125 mg IVP Administration Document 04/07/18 20:07 (Rec: 04/07/18 20:26 [id number]) Charges for Administration # of IVP Administrations 1 Disposition/Present on Arrival - Present on Arrival Any Indicators Present on Arrival: No History of DVT/PE: No History of Uncontrolled Diabetes: No Urinary Catheter: No History of Decub. Ulcer: No History Surgical Site Infection Following: None - Disposition Have Diagnosis and Disposition been Completed?: Yes Diagnosis: Shortness of breath, Chest pain, Leukocytosis Disposition: HOSPITALIZED Disposition Time: 23:10 Patient Problems: Current Active Problems Problem Status Onset Chest pain Acute Leukocytosis Acute Shortness of breath Acute Condition: FAIR
[2018-04-07 23:16] LABS: URINE APPEARANCE SL CLOUDY (CLEAR); URINE COLOR YELLOW (YELLOW)
[2018-04-07] MEDS ORDERED: Vancomycin 1gm in NS 250ml 1 GM/250 ML BAG IVPB STA (23:16)
[2018-04-07] MEDS ORDERED: Sodium Chloride 0.9% 1,000 ML IV ONE (23:16)
[2018-04-07] MEDS ORDERED: Piperacill/Tazo 4.5gm in NS 4.5 GM/100 ML BAG IVPB STA (23:16)
[2018-04-07 23:18] LABS: URINE BACTERIA SMALL (NEG); URINE EPITHELIAL CELLS MANY /hpf (0-5); URINE RBC 0 - 2 /hpf (0-2)
[2018-04-08] MEDS ORDERED: Morphine 2 mg/ml ISec IVP STA (08:01)
[2018-04-08] MEDS ORDERED: Sucralfate 1 gm/10 ml Oral Susp UD PO STA (08:10)
[2018-04-08 08:12] LABS: HEMOGLOBIN 10.6 g/dL (12.0-16.0); MEAN CELL VOLUME 70.1 fl (80.0-105.0); MEAN CORPUSCULAR HGB CONC 29.9 g/dl (31.0-37.0); RBC 5.05 10^6/uL (3.5-6.1); WHITE BLOOD COUNT 24.8 10^3/uL (4.5-11.0)
--- NOTE | 2018-04-08 08:22 | PCM.RRT ---
<Robert Means - Last Filed: 04/08/18 08:49> COMMERCIAL APPRAISER Nurse Assessment - Situation Date: 04/08/18 Time COMMERCIAL APPRAISER was called: 07:48 COMMERCIAL APPRAISER Responder Arrival Time: 07:50 COMMERCIAL APPRAISER Location:: [address] [place] [address] Room Number: 571-1 [facility]ER[facility] Reason for Call: Chest Pain COMMERCIAL APPRAISER Called By: RN - IV IV Inserted during COMMERCIAL APPRAISER?: No IV Fluids Initiated During COMMERCIAL APPRAISER?: no - Respiratory Oxygen Delivery Method: Room Air Oxygen Flow Rate: 2 Received Nebulizer Treatments:: No Was the Patient Ventilated with Bag/Mask 100% O2?: No Secretions Suctioned?: No Was the Patient Intubated?: No Was the Patient Placed on a Ventilator?: No - Medication Medications Administered During COMMERCIAL APPRAISER: none - Diagnostic Test Ordered EKG: Yes Chest X-Ray: No CT Scan: No - Stat Labs Ordered COMMERCIAL APPRAISER Stat Labs Ordered: CBC, BMP, TROPONIN COMMERCIAL APPRAISER Other Labs Ordered: lipase CPR started during COMMERCIAL APPRAISER?: No - Vital Signs Vital Sign: Rapid Response Vital Sign Blood Pressure 116/75 Pulse Rate 74 Respiratory Rate 18 Temperature 97.9 F Oxygen Saturation 100 - Finger Stick Blood Glucose Finger Stick Blood Glucose: 168 - Time COMMERCIAL APPRAISER Ended Time COMMERCIAL APPRAISER Ended: 07:56 - Vital Signs at end of COMMERCIAL APPRAISER Vital Signs at end of COMMERCIAL APPRAISER: Rapid Response End Vital Sign Blood Pressure 121/86 Pulse Rate 57 Respiratory Rate 18 Temperature 97.9 F O2 Sat by Pulse Oximetry 100 - Recommendations 5) COMMERCIAL APPRAISER Level of Care Recommendations: Remain in current setting Notifications: Attending Physician I.Reason for COMMERCIAL APPRAISER - A) Acute Change in Patient: (Select all that apply): Staff member or family is worried about patient - Neurological Status (Select all that apply): Alert, Responsive, Oriented, Verbal, Follows Commands. absent: Disoriented, Confused, Lethargic, Aggressive, Weakness - Respiratory Oxygen Delivery Method: Room Air Oxygen Flow Rate: 2 - Constitutional Appears: Well, No Acute Distress - Head Head Exam: ATRAUMATIC, NORMAL INSPECTION - Eyes Eye Exam: EOMI, Normal appearance - Respiratory Exam Respiratory Exam: NORMAL BREATHING PATTERN. absent: Rales, Wheezes, Respiratory Distress - Cardiovascular Exam Cardiovascular Exam: RRR, +S1, +S2. absent: Murmur - GI/Abdominal Exam GI & Abdominal Exam: Soft, Normal Bowel Sounds. absent: Distended, Tenderness - Neurological Exam Neurological Exam: Alert, Awake, Oriented x3 - Extremities Exam Extremities Exam: Full ROM, Normal Inspection. absent: Pedal Edema Plan - Assessment of Findings&Treatment Plan 37 year old female with a PMH of anemia, polysubstance abuse and gastritis who is admitted for epigastric tearing chest pain. COMMERCIAL APPRAISER was called due to exacerbated atypical chest pain. Upon arrival, the patient is noted to be grasping her epigastric region and describes the pain as "crushing" in nature but non- radiating, and pleuritic in nature. She denies any nausea/vomiting or fevers/chills. Patient was admitted recently for similar symptoms and had EGD which showed gastritis, duodenitis, and non-bleeding gastric ulcers. In ED, the patient had CXR which was unremarkable, and CT/PE which was negative for PE. Troponin initially was negative. Leukocytosis is noted. During COMMERCIAL APPRAISER, EKG was obtained and was unremarkable. CBC, CMP, Troponin and Lipase levels were obtained. UDS was also ordered after chart check reveals prior cocaine and MDMA use. Morphine, PTX and Carafate are ordered STAT. At end of COMMERCIAL APPRAISER, we are awaiting results of blood work ordered, and patient is stable. Dr. Alvarado was contacted and the condition was explained to him, and he recommended Doxycycline, Tamiflu Xopenex, Lovenox, and that ID is consulted. - CBC, CMP, Troponin, and lipase ordered - UDS ordered - Morphine 2mg IVP x1 STAT - PTX 40mg IVP x1 and Carafate 1g PO x1 STAT - EKG done during COMMERCIAL APPRAISER - Doxycycline, Tamiflu, Xopenex and Lovenox for DVT ppx ordered per Dr. Alvarado - patient can remain in current location <Shanell Carr - Last Filed: 04/10/18 18:36> COMMERCIAL APPRAISER Nurse Assessment - Vital Signs Vital Sign: Rapid Response Vital Sign Blood Pressure 116/75 Pulse Rate 74 Respiratory Rate 18 Temperature 97.9 F Oxygen Saturation 100 - Vital Signs at end of COMMERCIAL APPRAISER Vital Signs at end of COMMERCIAL APPRAISER: Rapid Response End Vital Sign Blood Pressure 121/86 Pulse Rate 57 Respiratory Rate 18 Temperature 97.9 F O2 Sat by Pulse Oximetry 100 Attending/Attestation - Attestation I have personally seen and examined this patient.: Yes I have fully participated in the care of the patient.: Yes I have reviewed all pertinent clinical information, including history, physical exam and plan: Yes
[2018-04-08 08:26] LABS: ALB/GLOB RATIO 1.1 (1.1-1.8); ALBUMIN 3.9 g/dL (3.0-4.8); ALT/SGPT 28 U/L (7-56); AST/SGOT 21 U/L (14-36); BLOOD UREA NITROGEN 20 mg/dL (7-21); CALCIUM 9.5 mg/dL (8.4-10.5); GFR NON-AFRICAN AMERICAN > 60; LIPASE 63 U/L (23-300)
[2018-04-08 08:27] LABS: TROPONIN I < 0.01 ng/mL
[2018-04-08] MEDS: Sodium Chloride 0.9% 1,000 ML IV SCH (08:33)
--- NOTE | 2018-04-08 08:35 | CT ---
Date of service: 04/07/2018 PROCEDURE: CT Chest with contrast (Pulmonary Angiogram) HISTORY: SOB r/o PE COMPARISON: None available. TECHNIQUE: Axial computed tomography images were obtained of the chest in the pulmonary arterial phase of enhancement. Coronal and sagittal reformatted images were created and reviewed. Intravenous contrast dose: Radiation dose: Total exam DLP = 408.23 mGy-cm. This CT exam was performed using one or more of the following dose reduction techniques: Automated exposure control, adjustment of the mA and/or kV according to patient size, and/or use of iterative reconstruction technique. FINDINGS: PULMONARY ARTERIES: Unremarkable. No pulmonary embolism. AORTA: No acute findings. No thoracic aortic aneurysm. No aortic atherosclerotic calcification or mural plaque present. There is a persistent left SVC which is an anatomic variation. LUNGS: Unremarkable. No nodule, mass or pulmonary consolidation. PLEURAL SPACES: Unremarkable. No effusion or pneumothorax. HEART: Unremarkable. No cardiomegaly. No significant pericardial effusion. LYMPH NODES: No lymphadenopathy. BONES, CHEST WALL: Unremarkable. No fracture or destructive lesion OTHER FINDINGS: The report concurs with the preliminary [facility] report IMPRESSION: Unremarkable CT pulmonary angiogram. No pulmonary embolus.
[2018-04-08] MEDS ORDERED: Levalbuterol 0.63 MG/3 ML Inhal Soln UD IH PRN (08:46)
--- NOTE | 2018-04-08 10:18 | RAD ---
Date of service: 04/07/2018 HISTORY: sob COMPARISON: Chest radiographs 03/27/2018. FINDINGS: LUNGS: No active pulmonary disease. PLEURA: No significant pleural effusion identified, no pneumothorax apparent. CARDIOVASCULAR: No aortic atherosclerotic calcification present. Normal cardiac size. No pulmonary vascular congestion. OSSEOUS STRUCTURES: No significant abnormalities. VISUALIZED UPPER ABDOMEN: Normal. OTHER FINDINGS: None. IMPRESSION: No interval acute cardiopulmonary disease appreciated.
[2018-04-08 11:13] LABS: PLATELET COUNT 262 10^3/uL (120.0-450.0)
[2018-04-08] MEDS: Enoxaparin 40 mg Syringe SC SCH (12:06)
[2018-04-08] MEDS ORDERED: Barium Sulfate Susp 2.1% w/v, 2.0% w/w 450 mL Bottle PO ONE (12:24)
[2018-04-08] MEDS ORDERED: Iohexol 350 MG/100 ML VIAL ONE (12:47)
--- NOTE | 2018-04-08 13:48 | US ---
HISTORY: Leg pain and swelling. Evaluate for DVT PHYSICIAN(S): Iban Dave MD. TECHNIQUE: Duplex sonography and color-flow Doppler with graded compression were used to evaluate the deep venous systems of both lower extremities. FINDINGS: The visualized deep venous systems of both lower extremities are sonographically normal and compressible. Normal wave forms and augmentation are seen. There is no sonographic evidence for deep venous thrombosis in the visualized segments of both lower extremities. IMPRESSION: No sonographic evidence for deep venous thrombosis in the visualized segments of both lower extremities.
[2018-04-08] MEDS: Piperacillin/Tazobact 3.375 gm 100 ML IVPB SCH ×2 (15:00→21:39)
--- NOTE | 2018-04-08 15:16 | CARD ---
APPROVED REPORT Date of service: 04/07/2018 EKG Measurement Heart [id number] <Conclusion> Normal sinus rhythm with sinus arrhythmia Normal ECG
[2018-04-08 16:14] LABS: COMPLEMENT C4 41.2 mg/dL (14.0-44.0)
[2018-04-08 16:49] LABS: BARBITURATES, UR NEGATIVE (NEGATIVE); BENZODIAZEPINES, UR NEGATIVE (NEGATIVE); OPIATES, UR POSITIVE (NEGATIVE); PHENCYCLIDINE, UR NEGATIVE (NEGATIVE)
--- NOTE | 2018-04-08 18:58 | CARD ---
APPROVED REPORT Date of service: 04/08/2018 EKG Measurement Heart [id number] <Conclusion> Sinus bradycardia Otherwise normal ECG
--- NOTE | 2018-04-08 19:36 | CON ---
DATE: 04/08/2018 The patient is seen earlier this morning, 571, bed #1. CHIEF COMPLAINT: Fever x1 to 2 days duration. HISTORY OF PRESENT ILLNESS: This is a 37-year-old female with history of hypertension, history of Crohn's disease, gastric ulcer, gout, gastritis, urinary tract infection, substance abuse, iron-deficiency anemia, bronchitis, and fibroids, who was admitted through the emergency room complaining of shortness of breath times several hours and PE workup including D-dimer and CT angio was done, which was negative. The patient was found to have a 19,000 white count this morning, went up to 24,000. Infectious Disease consultation was requested. The patient did have fevers, but no chills and does have shortness of breath. No pleuritic pain. No abdominal pain. No dysuria, frequency. No new back pain. No new headaches or blurred vision. PAST MEDICAL HISTORY: Significant for iron-deficiency anemia, hypertension, substance abuse, gastric ulcers, gastritis, gout, urinary tract infection, and Crohn's disease. PAST SURGICAL HISTORY: Noncontributory. ALLERGIES: THE PATIENT IS ALLERGIC TO COCONUT OIL AND MOOKIE. MEDICATIONS: Medications at home are reviewed and include Augmentin, iron, and Motrin. REVIEW OF SYSTEMS: Fourteen-point review of systems is performed. PHYSICAL EXAMINATION: GENERAL: The patient is in bed with a temperature of 99, T-max is 101.4, heart rate of 76, it was up to 89, respiratory rate of 18 and it was up to 22, and blood pressure is 116/50. Examination of the O2 saturation is 99% on room air. The patient's BMI is 29. HEENT: Unremarkable. NECK: Supple. LUNGS: Have decreased breath sounds. HEART: Normal S1, S2. ABDOMEN: Soft, nontender. No rebound or guarding. No masses. LABORATORY EXAMINATION: Reveals a white count of 19,000, hemoglobin 11, and platelets of 252. The patient has 87% granulocytosis. Coagulation is noted. Chemistries revealed a CK is elevated to 46 and urinalysis is noted. Influenza and microbiology are pending. The patient had a CT angio, which shows negative infiltrates, negative for pulmonary emboli. Chest x-ray is negative and urinalysis is negative. ASSESSMENT AND PLAN: This is a 37-year-old female with iron-deficiency anemia, substance abuse, Crohn's disease, gastritis, gout, and urinary tract infection, recently hospitalized, now returns with systemic inflammatory response syndrome, must rule out gastrointestinal pathology and complications of Crohn's disease, and currently, we will treat the patient with Zosyn and order blood cultures and urine cultures. We will also order a vasculitis workup. We will also order Dopplers of the lower extremities, and a CAT scan of the abdomen and pelvis, and we will make further recommendations upon availability of initial results. Gaudencio Serrano MD
[2018-04-08] MEDS: HYDROmorphone 0.5 mg/0.5 ml ISec IVP PRN (22:24)
[2018-04-08 23:18] LABS: HEMOGLOBIN 9.9 g/dL (12.0-16.0); MEAN CELL VOLUME 71.4 fl (80.0-105.0); MEAN CORPUSCULAR HEMOGLOBIN 21.2 pg (25.0-35.0); MEAN CORPUSCULAR HGB CONC 29.6 g/dl (31.0-37.0); MEAN PLATELET VOLUME 8.8 fl (7.0-11.0); RBC 4.68 10^6/uL (3.5-6.1); RED CELL DISTRIBUTION WIDTH 30.7 % (11.5-14.5); WHITE BLOOD COUNT 19.4 10^3/uL (4.5-11.0)
[2018-04-09] MEDS: HYDROmorphone 0.5 mg/0.5 ml ISec IVP PRN ×2 (05:54→17:43)
[2018-04-09] MEDS: Sodium Chloride 0.9% 1,000 ML IV SCH ×4 (05:54→21:31)
[2018-04-09] MEDS: Piperacillin/Tazobact 3.375 gm 100 ML IVPB SCH ×3 (05:54→21:34)
[2018-04-09 07:12] LABS: ALT/SGPT 29 U/L (7-56); AST/SGOT 22 U/L (14-36); BLOOD UREA NITROGEN 15 mg/dL (7-21); CALCIUM 8.7 mg/dL (8.4-10.5); GFR NON-AFRICAN AMERICAN > 60
--- NOTE | 2018-04-09 09:29 | CT ---
Date of service: 04/08/2018 PROCEDURE: CT Abdomen and Pelvis with contrast HISTORY: abd pain COMPARISON: None. TECHNIQUE: Contrast dose: Radiation dose: Total exam DLP = 616.52 mGy-cm. This CT exam was performed using one or more of the following dose reduction techniques: Automated exposure control, adjustment of the mA and/or kV according to patient size, and/or use of iterative reconstruction technique. FINDINGS: LOWER THORAX: Unremarkable. LIVER: Unremarkable. No gross lesion or ductal dilatation. GALLBLADDER AND BILE DUCTS: Unremarkable. PANCREAS: Unremarkable. No gross lesion or ductal dilatation. SPLEEN: Unremarkable. ADRENALS: Unremarkable. No mass. KIDNEYS AND URETERS: Unremarkable. No hydronephrosis. No solid mass. VASCULATURE: Unremarkable. No aortic aneurysm. No aortic atherosclerotic calcification or mural plaque present. BOWEL: Unremarkable. No obstruction. No gross mural thickening. APPENDIX: Normal appendix. PERITONEUM: Unremarkable. No free fluid. No free air. LYMPH NODES: Unremarkable. No enlarged lymph nodes. BLADDER: Unremarkable. REPRODUCTIVE: Leiomyomatous uterus. Roughly 2.2 centimeter left ovarian cyst.. BONES: No acute fracture. OTHER FINDINGS: Nonspecific right anterior chest wall nodule measuring 7 millimeters. IMPRESSION: Leiomyomatous uterus. Roughly 2.2 centimeter left ovarian cyst..Nonspecific right anterior chest wall nodule measuring 7 millimeters.
[2018-04-09] MEDS: Sucralfate 1 gm/10 ml Oral Susp UD PO SCH ×2 (09:52→17:44)
[2018-04-09] MEDS: Enoxaparin 40 mg Syringe SC SCH (09:53)
[2018-04-09 10:57] LABS: BASO # 0.01 K/mm3 (0.0-2.0); BASO % 0.1 % (0.0-3.0); EOS % 0.2 % (1.5-5.0); GRAN # 11.36 (1.4-6.5); GRAN % 79.4 % (50.0-68.0); HEMOGLOBIN 9.2 g/dL (12.0-16.0); LYMPH # 2.3 (1.2-3.4); LYMPH % 16.2 % (22.0-35.0); MEAN CELL VOLUME 72.1 fl (80.0-105.0); MEAN CORPUSCULAR HEMOGLOBIN 21.1 pg (25.0-35.0); MEAN CORPUSCULAR HGB CONC 29.2 g/dl (31.0-37.0); MONO # 0.6 (0.1-0.6); MONO % 4.1 % (1.0-6.0); PLATELET COUNT 204 10^3/uL (120.0-450.0); RBC 4.37 10^6/uL (3.5-6.1); RED CELL DISTRIBUTION WIDTH 31.3 % (11.5-14.5); WHITE BLOOD COUNT 14.3 10^3/uL (4.5-11.0)
--- NOTE | 2018-04-09 11:08 | US ---
Date of service: 04/09/2018 HISTORY: chest pain . leukocytosis COMPARISON: None. TECHNIQUE: Sonographic evaluation of the right upper quadrant of the abdomen. FINDINGS: LIVER: Measures 18.3 cm in length. Normal echogenicity of the liver parenchyma. No mass. No intrahepatic bile duct dilatation. GALLBLADDER: Unremarkable. No gallstones. COMMON BILE DUCT: Measures 6.6 mm. No stones. No dilatation. PANCREAS: Unremarkable as visualized. No mass. No ductal dilatation. RIGHT KIDNEY: Measures 10.8 x 4.1 x 6.3 cm in length. Normal echogenicity. No calculus, mass, or hydronephrosis. AORTA: No aneurysmal dilatation. IVC: Unremarkable. OTHER FINDINGS: None . IMPRESSION: Unremarkable study
--- NOTE | 2018-04-09 11:10 | CARD ---
APPROVED REPORT Date of service: 04/09/2018 EXAM: Two-dimensional and M-mode echocardiogram with Doppler and color Doppler. INDICATION Chest Pain 2D DIMENSIONS Left Atrium (2D)4.5 (1.6-4.0cm)IVSd1.2 (0.7-1.1cm) LVDd5.4 (3.9-5.9cm)PWd1.0 (0.7-1.1cm) LVDs3.5 (2.5-4.0cm)FS (%) 34.0 % LVEF (%)62.4 (>50%) M-Mode DIMENSIONS Aortic Root2.80 (2.2-3.7cm)Aortic Cusp Exc.1.80 (1.5-2.0cm) Aortic Valve AoV Peak Hcdqpars094.0cm/sAoV VTI45.6cmAO Peak GR.14mmHg AO Mean GR.8mmHg Mitral Valve MV E Uuxxaxws717.0cm/sMV A Cexhhcqr29.9cm/sE/A ratio2.6 TDI Lateral E' Peak V12.00cm/sMedial E' Peak V8.48cm/sE/Lateral E'10.3 E/Medial E'14.5 Pulmonary Valve PV Peak Vjzwsxzs04.0cm/sPV Peak Grad.1mmHg Tricuspid Valve TR Peak Ddduoytq378pc/sRAP VAMASMBX37unMeWK Peak Gr.24mmHg [id number] LEFT VENTRICLE The left ventricle is normal size. The left ventricular function is normal. The left ventricular ejection fraction is within the normal range. EJ.Fr:62%. RIGHT VENTRICLE The right ventricle is normal size. The right ventricular systolic function is normal. ATRIA Lt.Atrium Mildly DFilated. The right atrium size is normal. AORTIC VALVE The aortic valve is normal in structure. There is trace aortic regurgitation. MITRAL VALVE The mitral valve is normal in structure. Mitral regurgitation is mild. TRICUSPID VALVE The tricuspid valve is normal in structure. There is trace to mild tricuspid regurgitation. PERICARDIAL EFFUSION There is no pericardial effusion. <Conclusion> The left ventricle is normal size. The left ventricular function is normal. The left ventricular ejection fraction is within the normal range. EJ.Fr:62%. The right ventricle is normal size. The right ventricular systolic function is normal. Lt.Atrium Mildly Dilated. The right atrium size is normal. The aortic valve is normal in structure. There is trace aortic regurgitation. The mitral valve is normal in structure. Mitral regurgitation is mild. The tricuspid valve is normal in structure. There is trace to mild tricuspid regurgitation. There is no pericardial effusion.
--- NOTE | 2018-04-09 11:51 | CON ---
DATE: 04/07/2018 CHIEF COMPLAINT: The patient came in with chest discomfort and dyspnea. HISTORY OF PRESENT ILLNESS: The patient was seen initially by physicians in the emergency room for that reason. She was evaluated for the above complaint. She has mild wheezing. She came in and given steroids. She also had evaluations for CT angiogram, which was negative. No infiltrates and no other complaint. The patient also mentioned she had a fever, is 100.8 or 101, otherwise she denied any nausea or vomiting. She denied any abdominal pain. She was recently a week ago discharged from the hospital because of menorrhagia, severe anemia, and had an EGD which showed gastritis with negative H. pylori. The patient also has been scheduled for pelvic surgery, including maybe D and C, possible hysteroscopy. The patient found to have leukocytosis with fever of unclear source, possible pulmonary etiology and was admitted for observation. PAST MEDICAL HISTORY: As we mentioned, severe anemia, fibroid uterus, asthma, gastritis, iron deficiency anemia, possibly history of drug use. ALLERGIES: COCONUT OIL AND MOOKIE. FAMILY HISTORY: Noncontributory. SOCIAL HISTORY: She smokes like 7 cigarettes a day and she does not drink, but we will discuss with that other problems. HOME MEDICATIONS: She takes Protonix 40 mg once a day. She takes nitrofurantoin, Macrodantin, Motrin, p.o. iron pills and Augmentin. REVIEW OF SYSTEMS: As above and otherwise negative. She does have neuralgia, she has dyspnea, dyspepsia but negative for other problems. PHYSICAL EXAMINATION: VITAL SIGNS: Temperature 98, initially it was higher; heart rate 59; blood pressure 116/58; respirations 20; saturations 98% on room air. HEAD AND NECK: Normal. No JVD. No thyromegaly. CHEST: Clear bilateral. CARDIAC: First sound, second sound normal. No murmur, rub, or gallop. ABDOMEN: There is some mild epigastric tenderness. No right upper quadrant tenderness. Bowel sounds intact. EXTREMITIES: No edema. NEUROLOGICAL: Normal. LABORATORY DATA: She had white count 19.0, hemoglobin 11.1, platelets 252,000 and on repeat CBC white count went up to 24.8, hemoglobin 10.6, hematocrit 35.4, platelets 266,000. The patient also had chemistry including D-dimer was negative and she had chemistry including sodium 139, potassium 4.3, chloride 112, bicarbonate 20, blood sugar 179. Liver functions tests are normal. Troponin is negative. The patient has C-reactive protein more than 15 and she has also repeated procalcitonin 1.84. The patient had a CT angio negative. Also she had serology, which is negative. IMPRESSION AND PLAN: This is a 37-year-old young female with leukocytosis, fever, some respiratory symptoms, some epigastric tenderness. We will admit the patient. ID consultation with Dr. Serrano. We will give the patient IV Zosyn, pending any GI etiology of these symptoms. We will also consider ultrasound of gallbladder and on review of old chart she does not have any gallstones; however, we will need to evaluate for GI etiology with this leukocytosis and upper epigastric discomfort and chest discomfort. Repeat lab in the morning. We will get a GI consult and we will see how things go. Continue current therapy. Continue inhaled bronchodilators, IV Protonix, IV Zosyn, IV fluids. Keep her n.p.o. for now and repeat lab in the morning and we will get a CT abdomen and pelvis p.o. contrast as per ID and ultrasound of the gallbladder and also urine cultures. Blood culture so far has been ordered and it seems initial result negative. Continue current therapy. Follow up clinically. Faisal Alvarado MD
--- NOTE | 2018-04-09 15:44 | CP.PCM.CON ---
<Adeola Ramirez - Last Filed: 04/09/18 15:44> History of Present Illness - History of Present Illness History of Present Illness: Gastroenterology Fellow/PGY6 Consult Note 37 year old female with history of microcytic anemia in setting of menorrhagia, Polysubstance abuse presenting with chest pain. Patient preparing for offset pressman visit yesterday with sudden onset of progressive substernal chest pain at rest with associated shortness of breath. Similar episode once admitted leading to rapid response. Patient notes she had not eaten prior to pain onset. Admits to having loose stools two days ago. Endorses last cocaine use to be 04/04/18. Denies fever, chills, sweats, abdominal pain, nausea, vomiting, hematemesis, acid reflux, constipation, hematochezia, melena, or unintentional weight loss. Recent discharge 03/31 for abdominal pain and anemia requiring transfusion. EGD performed 03/31/18 showed antral superficial linear ulcers <4mm in size, Andreas classification III and H. pylori negative gastritis. No prior colonoscopy. Family History- grandmother-pancreatic cancer in 70s of age Social-1/2 ppd x 20 years, social alcohol use, cocaine use Surgery-none Review of Systems - Review of Systems Review of Systems: 12-point review of systems negative except for as above Past Patient History - Infectious Disease Hx of Infectious Diseases: None - Tetanus Immunizations Tetanus Immunization: Unknown - Past Social History Smoking Status: Heavy Smoker > 10 Cigarettes Daily - CARDIAC Hx Cardiac Disorders: No Hx Angina: No Hx Cardia Arrhythmia: No Hx Circulatory Problems: No Hx Congestive Heart Failure: No Hx Heart Murmur: No Hx Heart Transplant: No Hx Hypercholesterolemia: No Hx Hypertension: Yes Hx Internal Defibrillator: No Hx Mitral Valve Prolapse: No Hx Pacemaker: No Hx Peripheral Edema: No Hx Peripheral Vascular Disease: No - PULMONARY Hx Respiratory Disorders: No Hx Asthma: No Hx Bronchitis: No Hx Chronic Obstructive Pulmonary Disease (COPD): No Hx Emphysema: No Hx Pneumonia: No Hx Respiratory Aspiration: No Hx Respiratory Tract Infection: No Hx Sleep Apnea: No Hx Tuberculosis: No - NEUROLOGICAL Hx Neurological Disorder: No Hx Alzheimer's Disease: No HX Cerebrovascular Accident: No Hx Dementia: No Hx Dizziness: No Hx Meningitis: No Hx Migraine: No Hx Parkinson's Disease: No Hx Seizures: No Hx Transient Ischemic Attacks (TIA): No - HEENT Hx HEENT Problems: No Hx Blind: No Hx Cataracts: No Hx Deafness: No Hx Difficulty Chewing: No Hx Epistaxis: No Hx Glaucoma: No Hx Macular Degeneration: No - RENAL Hx Chronic Kidney Disease: No Hx Dialysis: No Hx Kidney Stones: No Hx Neurogenic Bladder: No Hx Pyelonephritis: No Hx Renal (Kidney) Cancer: No Hx Renal Failure: No - ENDOCRINE/METABOLIC Hx Endocrine Disorders: No Hx Adrenal Cancer: No Hx Diabetes Insipidus: No Hx Diabetes Mellitus Type 1: No Hx Diabetes Mellitus Type 2: No Hx Hyperthyroidism: No Hx Hypothyroidism: No Hx Systemic Lupus Erythematosus: No - HEMATOLOGICAL/ONCOLOGICAL Hx Blood Disorders: No Hx AIDS: No Hx Anemia: Yes Hx Cancer: No Hx Chemotherapy: No Hx Cirrhosis: No Hx Hemophilia: No Hx Hepatitis A: No Hx Hepatitis B: No Hx Hepatitis C: No Hx Human Immunodeficiency Virus (HIV): No Hx Metastesis: No Hx Shingles: No Hx Sickle Cell Disease: No Hx Unexplained Bleeding: No - INTEGUMENTARY Hx Dermatological Problems: No Hx Basil Cell: No Hx Eczema: No Hx Melanoma: No Hx Psoriasis: No Hx Squamous Cell: No - MUSCULOSKELETAL/RHEUMATOLOGICAL Hx Musculoskeletal Disorders: No Hx Arthritis: No Hx Back Pain: No Hx Degenerative Joint Disease: No Hx Falls: No Hx Fractures: No Hx Gout: No Hx Herniated Disk: No Hx Myasthenia Gravis: No Hx Osteoarthritis: No Hx Osteomyelitis: No Hx Osteoporosis: No Hx Rhabdomyolysis: No Hx Spinal Stenosis: No Hx Unsteady Gait: No - GASTROINTESTINAL Hx Gastrointestinal Disorders: No Hx Colostomy: No Hx Crohn's Disease: Yes Hx Diverticulitis: No Hx Gall Bladder Disease: No Hx Gastroesophageal Reflux: No Hx Ileostomy: No Hx Liver Failure: No Hx Pancreatitis: No HX Swallowing Problems: No Hx Ulcer: No - GENITOURINARY/GYNECOLOGICAL Hx Genitourinary Disorders: Yes Hx Hematuria: No Hx Incontinence: No Hx Sexually Transmitted Disorders: No Hx Urinary Tract Infection: Yes - PSYCHIATRIC Hx Psychophysiologic Disorder: No Hx Anxiety: No Hx Bipolar Disorder: No Hx Depression: No Hx Emotional Abuse: No Hx Hallucinations: No Hx Panic Symptoms: No Hx Paranoia: No Hx Post Traumatic Stress Disorder: No Hx Psychosis: No Hx Physical Abuse: No Hx Schizophrenia: No Hx Sexual Abuse: No - SURGICAL HISTORY Hx Cardiac Catheterization: No Hx Coronary Stent: No - ANESTHESIA Hx Anesthesia Reactions: No Hx Malignant Hyperthermia: No Meds Allergies/Adverse Reactions: Allergies Allergy/AdvReac Type Severity Reaction Status Date / Time coconut oil Allergy ANAPHYLAXIS Verified 03/27/18 18:44 calixto Allergy ANAPHYLAXIS Verified 03/27/18 18:44 - Medications Medications: Current Medications Enoxaparin Sodium (Lovenox) 40 mg SC DAILY [facility]; Protocol Last Admin: 04/09/18 09:53 Dose: 40 mg Hydromorphone HCl (Dilaudid) 0.5 mg IVP Q4H PRN PRN Reason: Pain, moderate (4-7) Last Admin: 04/09/18 05:54 Dose: 0.5 mg Sodium Chloride (Sodium Chloride 0.9%) 1,000 mls @ 150 mls/hr IV .Q6H40M [facility] Last Admin: 04/09/18 05:54 Dose: 150 mls/hr Piperacillin Sod/Tazobactam Sod (Zosyn 3.375 In Ns 100ml) 100 mls @ 25 mls/hr IVPB Q8 [facility]; Protocol Stop: 04/17/18 14:01 Last Admin: 04/09/18 05:54 Dose: 25 mls/hr Ibuprofen (Motrin Tab) 400 mg PO Q6H PRN PRN Reason: Pain, moderate (4-7) Levalbuterol HCl (Xopenex) 0.63 mg IH [id number] PRN PRN Reason: Shortness of Breath Nicotine (Nicoderm Cq) 1 patch TD DAILY [facility] Last Admin: 04/09/18 09:53 Dose: 1 patch Oseltamivir Phosphate (Tamiflu Cap) 75 mg PO BID [facility]; Protocol Last Admin: 04/09/18 09:52 Dose: 75 mg Pantoprazole Sodium (Protonix Inj) 40 mg IVP 0600,1600 [facility] Last Admin: 04/09/18 09:52 Dose: 40 mg Sucralfate (Carafate Oral Susp) 1 gm PO 0600,1600 [facility] Last Admin: 04/09/18 09:52 Dose: 1 gm Physical Exam - Constitutional Appears: Non-toxic, No Acute Distress - Head Exam Head Exam: ATRAUMATIC, NORMOCEPHALIC - Eye Exam Eye Exam: EOMI, PERRL. absent: Scleral icterus Pupil Exam: PERRL. absent: Miosis, Mydriatic - ENT Exam ENT Exam: Mucous Membranes Moist, Normal Oropharynx - Neck Exam Neck exam: Positive for: Full Rom, Normal Inspection - Respiratory Exam Respiratory Exam: Clear to Auscultation Bilateral. absent: Rales, Rhonchi, Wheezes - Cardiovascular Exam Cardiovascular Exam: RRR, +S1, +S2. absent: Gallop, Rubs Additional comments: reproducible chest wall and ribcage tenderness - GI/Abdominal Exam GI & Abdominal Exam: Normal Bowel Sounds, Soft. absent: Distended, Firm, Guarding, Organomegaly, Rebound, Rigid, Tenderness - Extremities Exam Extremities exam: Positive for: normal inspection. Negative for: pedal edema - Neurological Exam Neurological exam: Alert - Psychiatric Exam Psychiatric exam: Normal Affect, Normal Mood - Skin Skin Exam: Dry, Intact, Normal Color, Warm Results - Vital Signs Recent Vital Signs: Last Vital Signs Temp 98.1 F 04/09/18 08:14 Pulse 55 L 04/09/18 08:14 Resp 20 04/09/18 08:14 BP 111/68 04/09/18 08:14 Pulse Ox 98 04/09/18 08:14 - Labs Result Diagrams: 04/09/18 10:00 04/09/18 06:35 Labs: Laboratory Results - last 24 hr 04/08/18 04/08/18 04/08/18 08:30 08:30 08:30 WBC RBC Hgb Hct MCV MCH MCHC RDW Plt Count MPV Gran % Lymph % (Auto) [place] % (Auto) Eos % (Auto) Baso % (Auto) Gran # Lymph # (Auto) [place] # (Auto) Eos # (Auto) Baso # (Auto) Sodium Potassium Chloride Carbon Dioxide Anion Gap BUN Creatinine Est GFR ( Amer) Est GFR (Non-Af Amer) Random Glucose Calcium Total Bilirubin AST ALT Alkaline Phosphatase C-React Prot High Sens > 15.00 H Total Protein Albumin Globulin Albumin/Globulin Ratio Procalcitonin 1.84 H Urine Opiates Screen Urine Methadone Screen Ur Barbiturates Screen Ur Phencyclidine Scrn Ur Amphetamines Screen U Benzodiazepines Scrn U Oth Cocaine Metabols U Cannabinoids Screen Proteinase 3 (PR3) <1.0 Myeloperoxidase Ab <1.0 Complement C3 108.0 Complement C4 41.2 04/08/18 04/08/18 04/09/18 16:20 23:14 06:35 WBC 19.4 H D RBC 4.68 Hgb 9.9 L Hct 33.4 L MCV 71.4 L MCH 21.2 L MCHC 29.6 L RDW 30.7 H Plt Count 202 MPV 8.8 Gran % Lymph % (Auto) [place] % (Auto) Eos % (Auto) Baso % (Auto) Gran # Lymph # (Auto) [place] # (Auto) Eos # (Auto) Baso # (Auto) Sodium 139 Potassium 3.9 Chloride 114 H Carbon Dioxide 22 Anion Gap 7 L BUN 15 Creatinine 0.9 Est GFR ( Amer) > 60 Est GFR (Non-Af Amer) > 60 Random Glucose 97 Calcium 8.7 Total Bilirubin 0.4 AST 22 ALT 29 Alkaline Phosphatase 43 C-React Prot High Sens Total Protein 6.1 Albumin 3.0 Globulin 3.1 Albumin/Globulin Ratio 1.0 L Procalcitonin Urine Opiates Screen Positive H Urine Methadone Screen Negative Ur Barbiturates Screen Negative Ur Phencyclidine Scrn Negative Ur Amphetamines Screen Negative U Benzodiazepines Scrn Negative U Oth Cocaine Metabols Positive H U Cannabinoids Screen Negative Proteinase 3 (PR3) Myeloperoxidase Ab Complement C3 Complement C4 04/09/18 10:00 WBC 14.3 H D RBC 4.37 Hgb 9.2 L Hct 31.5 L MCV 72.1 L MCH 21.1 L MCHC 29.2 L RDW 31.3 H Plt Count 204 MPV Gran % 79.4 H Lymph % (Auto) 16.2 L [place] % (Auto) 4.1 Eos % (Auto) 0.2 L Baso % (Auto) 0.1 Gran # 11.36 H Lymph # (Auto) 2.3 [place] # (Auto) 0.6 Eos # (Auto) 0.0 Baso # (Auto) 0.01 Sodium Potassium Chloride Carbon Dioxide Anion Gap BUN Creatinine Est GFR ( Amer) Est GFR (Non-Af Amer) Random Glucose Calcium Total Bilirubin AST ALT Alkaline Phosphatase C-React Prot High Sens Total Protein Albumin Globulin Albumin/Globulin Ratio Procalcitonin Urine Opiates Screen Urine Methadone Screen Ur Barbiturates Screen Ur Phencyclidine Scrn Ur Amphetamines Screen U Benzodiazepines Scrn U Oth Cocaine Metabols U Cannabinoids Screen Proteinase 3 (PR3) Myeloperoxidase Ab Complement C3 Complement C4 Assessment & Plan - Assessment and Plan (Free Text) Assessment: 37 year old female with history of microcytic anemia in setting of menorrhagia, Polysubstance abuse presenting with chest pain. Active treatment of sepsis with unclear etiology. Recent discharge 03/31 for abdominal pain and anemia requiring transfusion. EGD performed 03/31/18 showed antral superficial linear ulcers <4mm in size, Andreas classification III and H. pylori negative gastritis. No prior colonoscopy. Plan: -Tmax 04/07 101.4, afebrile over 24 hours -CT C/A/P- no acute pathology on review -U/S- no gallstones or biliary dilatation -leukocytosis improving -Influenza negative, cultures negative to date -notes loose stools two days prior -ordered stool workup to rule out infectious diarrhea -on zosyn and tamiflu -cocaine endorsed to be used last 4 days prior to admission, initially stated last cocaine use prior to ER presentation -if cocaine used prior to ER presentation, possible association with leukoc ytosis and elevated temperature -chest pain reproducible -follow up cardiology recommendations -continue PPI ACB and sucralfate -continue regular diet -will follow clinical course <Emanuel Riggs V - Last Filed: 04/09/18 23:44> Meds - Medications Medications: Current Medications Enoxaparin Sodium (Lovenox) 40 mg SC DAILY [facility]; Protocol Last Admin: 04/09/18 09:53 Dose: 40 mg Gabapentin (Neurontin) 100 mg PO TID [facility]; Protocol Hydromorphone HCl (Dilaudid) 0.5 mg IVP Q4H PRN PRN Reason: Pain, moderate (4-7) Last Admin: 04/09/18 17:43 Dose: 0.5 mg Sodium Chloride (Sodium Chloride 0.9%) 1,000 mls @ 150 mls/hr IV .Q6H40M [facility] Last Admin: 04/09/18 21:31 Dose: 150 mls/hr Piperacillin Sod/Tazobactam Sod (Zosyn 3.375 In Ns 100ml) 100 mls @ 25 mls/hr IVPB Q8 [facility]; Protocol Stop: 04/17/18 14:01 Last Admin: 04/09/18 21:34 Dose: 25 mls/hr Ibuprofen (Motrin Tab) 400 mg PO Q6H PRN PRN Reason: Pain, moderate (4-7) Levalbuterol HCl (Xopenex) 0.63 mg IH [id number] PRN PRN Reason: Shortness of Breath Nicotine (Nicoderm Cq) 1 patch TD DAILY [facility] Last Admin: 04/09/18 09:53 Dose: 1 patch Oseltamivir Phosphate (Tamiflu Cap) 75 mg PO BID [facility]; Protocol Last Admin: 04/09/18 17:44 Dose: 75 mg Pantoprazole Sodium (Protonix Inj) 40 mg IVP 0600,1600 [facility] Last Admin: 04/09/18 17:43 Dose: 40 mg Sucralfate (Carafate Oral Susp) 1 gm PO 0600,1600 [facility] Last Admin: 04/09/18 17:44 Dose: 1 gm Results - Vital Signs Recent Vital Signs: Last Vital Signs Temp 98.1 F 04/09/18 22:11 Pulse 68 04/09/18 22:11 Resp 20 04/09/18 22:11 BP 122/79 04/09/18 22:11 Pulse Ox 99 04/09/18 22:11 - Labs Result Diagrams: 04/09/18 10:00 04/09/18 06:35 Labs: Laboratory Results - last 24 hr 04/08/18 04/09/18 04/09/18 08:30 06:35 10:00 WBC 14.3 H D RBC 4.37 Hgb 9.2 L Hct 31.5 L MCV 72.1 L MCH 21.1 L MCHC 29.2 L RDW 31.3 H Plt Count 204 Gran % 79.4 H Lymph % (Auto) 16.2 L [place] % (Auto) 4.1 Eos % (Auto) 0.2 L Baso % (Auto) 0.1 Gran # 11.36 H Lymph # (Auto) 2.3 [place] # (Auto) 0.6 Eos # (Auto) 0.0 Baso # (Auto) 0.01 Sodium 139 Potassium 3.9 Chloride 114 H Carbon Dioxide 22 Anion Gap 7 L BUN 15 Creatinine 0.9 Est GFR ( Amer) > 60 Est GFR (Non-Af Amer) > 60 Random Glucose 97 Calcium 8.7 Total Bilirubin 0.4 AST 22 ALT 29 Alkaline Phosphatase 43 Total Protein 6.1 Albumin 3.0 Globulin 3.1 Albumin/Globulin Ratio 1.0 L SKY Screen Negative SKY Titer TEST NOT PERFORMED SKY Titer 2 TEST NOT PERFORMED SKY Pattern TEST NOT PERFORMED SKY Pattern 2 TEST NOT PERFORMED Proteinase 3 (PR3) <1.0 Myeloperoxidase Ab <1.0 Attending/Attestation - Attestation I have personally seen and examined this patient.: Yes I have fully participated in the care of the patient.: Yes I have reviewed all pertinent clinical information: Yes Notes (Text): This is an addendum to GI consult report dictated by the GI Fellow.The patient was seen and examined earlier. Medical records, lab studies, imagings were reviewed. Last 24 hours events reviewed. Agreed with the above treatment plan as outlined in GI Fellow 's notes with the addition of the following Leukocytosis SIRS history of polysubstance drug abuse, history of cocaine usage recently before admission Less GI etiology imaging studies reviewed Follow-up cultures Continue antibiotics per ID History of iron deficiency anemia, status post EGD and gastric ulcer history of menorrhagia Continue PPI 04/09/18 23:39
--- NOTE | 2018-04-09 16:31 | CON ---
DATE: 04/09/2018 CONSULT SERVICE: Cardiology. REASON FOR THE CONSULTATION: Cardiac evaluation for the chest pain as well as preop evaluation for D and C. BRIEF CLINICAL HISTORY: This is a 37-year-old female with past medical history significant for dysfunctional uterine bleeding, scheduled for D and C, came in yesterday with chest pain. It is very tender on the chest. Denies any dyspnea on exertion, chest pain on exertion. 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 PAST MEDICAL HISTORY: Significant for anemia secondary to dysfunctional uterine bleeding. SOCIAL HISTORY: Active smoker, started at the age of 15, smoked for 20 plus pack-year, but now cut down to one to two cigarettes. Denies any history of alcohol abuse, but history of some substance abuse. Used marijuana and cocaine off and on every weekly. FAMILY HISTORY: Nothing significant. No history of coronary artery disease. CURRENT MEDICATIONS: The patient at home is taking Protonix one tablet daily, nitrofurantoin daily, ibuprofen p.r.n., ferrous sulfate, and Augmentin. ALLERGIES: ALLERGY TO COCONUT, ALLERGY TO MOOKIE, GETS ANAPHYLACTIC ACCORDING TO THE PATIENT. REVIEW OF SYSTEMS: As per HPI. PHYSICAL EXAMINATION: As follows; VITAL SIGNS: Height of the patient 5 feet 7 inches, weight of the patient 190 pounds, body mass index 30 kg/m2. Rest of the vitals, temperature afebrile, heart rate 61, blood pressure 111/68. HEENT: PERRLA. Extraocular muscles intact. NECK: Supple. No carotid bruits. No thyromegaly. CHEST: Clear to auscultation. Chest is very tender, retrosternal. On pressing the chest, the patient jumps. It looks like more musculoskeletal chest pain. HEART: S1, S2 regular. ABDOMEN: Soft. EXTREMITIES: Clubbing and cyanosis negative. LABORATORY DATA: EKG shows normal sinus, no acute ST-T changes noted. Essentially normal EKG. Blood workup; WBC 19.4, hemoglobin 9.9, hematocrit 33.4, platelet count 204. Neutrophil 87%, band of 5. Chemistry shows sodium 139, potassium 3.9, chloride 114, carbon dioxide 22, anion gap of 7, BUN 15, creatinine 0.9. IMPRESSION: A 37-year-old female with past medical history significant for dysfunctional uterine bleeding; anemia, on iron pills; and history of gastroesophageal reflux admitted with chest pain. Cardiology consult was called for preop evaluation and risk stratification for possible dilation and curettage and for chest pain evaluation. Though the patient has elevated WBC and needs to work out for sepsis, but the chest pain is very atypical and very tender on touch and the patient jumps. So far troponin remains negative, only risk factor is age and smoker and history of substance abuse. RECOMMENDATIONS: We will get echo to assess LV function, get lipid profile, TSH, and hemoglobin A1c. Twice blood sugar shows 179 and 168 on fingerstick. We will get LV function. We will clear the patient to go for D and Cs as a low-risk procedure. No evidence of acute KS. No evidence of ischemia or arrhythmia. We will review the echo when it is done. Consider ID evaluation and blood culture. Further recommendations depending upon hospital course. We will follow with you. Thank you, Dr. Alvarado for providing us the opportunity in taking care of the patient, Eddie Lawton. Shanell Mariscal MD
--- NOTE | 2018-04-09 16:34 | CP.PCM.PN ---
Subjective - Date & Time of Evaluation Date of Evaluation: 04/09/18 Time of Evaluation: 08:55 - Subjective Subjective: No fevers, not in distress. Objective - Vital Signs/Intake and Output Vital Signs (last 24 hours): Temp Pulse Resp BP Pulse Ox 98.1 F 55 L 20 111/68 98 04/09/18 08:14 04/09/18 08:14 04/09/18 08:14 04/09/18 08:14 04/09/18 08:14 Intake and Output: 04/09/18 04/09/18 06:59 18:59 Intake Total 0 Balance 0 - Medications Medications: Current Medications Enoxaparin Sodium (Lovenox) 40 mg SC DAILY [facility]; Protocol Last Admin: 04/08/18 12:06 Dose: 40 mg Hydromorphone HCl (Dilaudid) 0.5 mg IVP Q4H PRN PRN Reason: Pain, moderate (4-7) Last Admin: 04/09/18 05:54 Dose: 0.5 mg Sodium Chloride (Sodium Chloride 0.9%) 1,000 mls @ 150 mls/hr IV .Q6H40M [facility] Last Admin: 04/09/18 05:54 Dose: 150 mls/hr Piperacillin Sod/Tazobactam Sod (Zosyn 3.375 In Ns 100ml) 100 mls @ 25 mls/hr IVPB Q8 [facility]; Protocol Stop: 04/17/18 14:01 Last Admin: 04/09/18 05:54 Dose: 25 mls/hr Levalbuterol HCl (Xopenex) 0.63 mg IH [id number] PRN PRN Reason: Shortness of Breath Nicotine (Nicoderm Cq) 1 patch TD DAILY [facility] Oseltamivir Phosphate (Tamiflu Cap) 75 mg PO BID [facility]; Protocol Last Admin: 04/08/18 17:35 Dose: 75 mg Pantoprazole Sodium (Protonix Inj) 40 mg IVP 0600,1600 [facility] Sucralfate (Carafate Oral Susp) 1 gm PO 0600,1600 [facility] - Labs Labs: 04/08/18 23:14 04/09/18 06:35 PT 11.1 SECONDS (9.4-12.5) 04/07/18 20:05 INR 0.97 04/07/18 20:05 APTT 25.1 Seconds (25.1-36.5) 04/07/18 20:05 - Constitutional Appears: Chronically Ill - Head Exam Head Exam: NORMAL INSPECTION - Respiratory Exam Respiratory Exam: Decreased Breath Sounds - Cardiovascular Exam Cardiovascular Exam: +S1, +S2 - GI/Abdominal Exam GI & Abdominal Exam: Soft. absent: Tenderness Assessment and Plan - Assessment and Plan (Free Text) Plan: Assessment SIRS, R/O exacerbation of Crohn's disease history of UTI/cystitis with gram positive cocci chronic anemia in this patient with uterine fibroids HTN gout Plan continue Zosyn; reviewed CT A/P which did not show acute pathology follow up further plans of GI cultures are negative will trend WBC count
--- NOTE | 2018-04-10 01:17 | PN ---
DATE: 04/09/2018 SUBJECTIVE: Discussion with the patient in detail. The patient seems better. She is afebrile. No nausea, no vomiting. CT done, ultrasound done. Discussed the results already with the patient. The patient mentions that she used to like the mothball smell. She has been using that for years. Also, the patient has been using cocaine. I did discuss she does smoke also 7 cigarettes a day. She reduced that. However, I did discuss with the patient about the risk of these. Right now, the patient is clinically stable, improving. Chest discomfort seems better. PHYSICAL EXAMINATION: VITAL SIGNS: Temperature 98, pulse rate is 55, blood pressure 111/68, respirations 20, and O2 sat 98% to 100% on 2 liters on room air. HEAD AND NECK: Normal. No JVD. No thyromegaly. CHEST: Clear bilateral. CARDIAC: First sound and second sound normal. ABDOMEN: Soft. Mild epigastric tenderness. EXTREMITIES: No edema. NEUROLOGIC: Normal. LABORATORY DATA: Shows white count 14.3, hemoglobin 9.2, hematocrit 31.5, platelets 204, which is down from before. Chemistries showed sodium 139, potassium 3.9, chloride 114, bicarb 22. BUN 15, creatinine 0.9. Liver function test is normal. Troponin x2 is negative. Her C-reactive protein 15. Her procalcitonin 1.84. The patient is stable. CT abdomen and pelvis was negative. Ultrasound of the gallbladder was negative. The patient has CT angiogram of the chest was negative. IMPRESSION AND PLAN: 1. Chest discomfort, etiology unclear. We will give nebulizer treatment. Currently, she is on intravenous antibiotic as per infectious disease recommendations. She is getting Zosyn intravenous plus Tamiflu. 2. Viral syndrome. May be systemic inflammatory syndrome due to viral, and she is on Tamiflu plus Xopenex plus Zosyn. She has been coughing. She has been wheezing before. We will continue current treatment. 3. Drug abuse. The patient has cocaine disorder. She is using mothball disorder. Discussed risk of sinus, respiratory cancer, brain cancer, and the negative risk of these chemicals on the human body. The other thing I did discuss with her is about cocaine and stroke and heart attack and damage to the kidneys and infarctions of any organ in the body. I discussed to stop that, tried to give her Neurontin which could help with that cocaine abuse, and I explained to her she may need to see a psychiatrist as outpatient, and some behavioral changes, some psych/social support and encouragement, and we will discuss further with the patient. 4. The patient has some back pain, pelvic pain. She is supposed she has fibroids. Otherwise negative. PLAN: Continue current treatment. She is on Carafate, Dilaudid, Lovenox, Motrin, p.r.n. Nicoderm, Protonix, IV fluid, Tamiflu, Xopenex, and Zosyn. The patient seems doing well. We will start diet. Continue that, and it is normal we are going to discharge the patient in the morning. Faisal Alvarado MD
[2018-04-10] MEDS: Sucralfate 1 gm/10 ml Oral Susp UD PO SCH (05:58)
[2018-04-10] MEDS: Sodium Chloride 0.9% 1,000 ML IV SCH (05:58)
[2018-04-10] MEDS: Piperacillin/Tazobact 3.375 gm 100 ML IVPB SCH (05:59)
[2018-04-10 07:17] LABS: BASO # 0.03 K/mm3 (0.0-2.0); BASO % 0.3 % (0.0-3.0); EOS # 0.1 (0.0-0.7); GRAN # 5.47 (1.4-6.5); GRAN % 59.9 % (50.0-68.0); HEMOGLOBIN 9.4 g/dL (12.0-16.0); LYMPH % 33.2 % (22.0-35.0); MEAN CORPUSCULAR HEMOGLOBIN 20.9 pg (25.0-35.0); MEAN CORPUSCULAR HGB CONC 29.5 g/dl (31.0-37.0); MONO # 0.5 (0.1-0.6); MONO % 5.6 % (1.0-6.0); PLATELET COUNT 219 10^3/uL (120.0-450.0); RBC 4.49 10^6/uL (3.5-6.1); WHITE BLOOD COUNT 9.1 10^3/uL (4.5-11.0)
[2018-04-10 07:31] LABS: ALBUMIN 3.1 g/dL (3.0-4.8); ALT/SGPT 25 U/L (7-56); AST/SGOT 15 U/L (14-36); BLOOD UREA NITROGEN 14 mg/dL (7-21); CALCIUM 8.6 mg/dL (8.4-10.5); GFR NON-AFRICAN AMERICAN > 60; HDL CHOLESTEROL 44 mg/dL (29-60)
[2018-04-10 07:39] LABS: LDL CHOLESTEROL 81 mg/dL (0-129)
--- NOTE | 2018-04-10 08:54 | CP.PCM.PN ---
<Adeola Ramirez - Last Filed: 04/10/18 08:51> Subjective - Date & Time of Evaluation Date of Evaluation: 04/10/18 Time of Evaluation: 08:51 - Subjective Subjective: Gastroenterology Fellow/PGY6 Progress Note Patient notes ongoing chest pain and shortness of breath. Denies abdominal pain. No further episodes of diarrhea without bowel movement since admission. Tolerating diet. A 12-point review of systems negative except for as above. Objective - Vital Signs/Intake and Output Vital Signs (last 24 hours): Temp Pulse Resp BP Pulse Ox 98.1 F 68 20 122/79 99 04/09/18 22:11 04/09/18 22:11 04/09/18 22:11 04/09/18 22:11 04/09/18 22:11 Intake and Output: 04/10/18 04/10/18 06:59 18:59 Intake Total 3100 Balance 3100 - Medications Medications: Current Medications Enoxaparin Sodium (Lovenox) 40 mg SC DAILY [facility]; Protocol Last Admin: 04/09/18 09:53 Dose: 40 mg Gabapentin (Neurontin) 100 mg PO TID [facility]; Protocol Hydromorphone HCl (Dilaudid) 0.5 mg IVP Q4H PRN PRN Reason: Pain, moderate (4-7) Last Admin: 04/09/18 17:43 Dose: 0.5 mg Sodium Chloride (Sodium Chloride 0.9%) 1,000 mls @ 150 mls/hr IV .Q6H40M [facility] Last Admin: 04/10/18 05:58 Dose: 150 mls/hr Piperacillin Sod/Tazobactam Sod (Zosyn 3.375 In Ns 100ml) 100 mls @ 25 mls/hr IVPB Q8 [facility]; Protocol Stop: 04/17/18 14:01 Last Admin: 04/10/18 05:59 Dose: 25 mls/hr Ibuprofen (Motrin Tab) 400 mg PO Q6H PRN PRN Reason: Pain, moderate (4-7) Levalbuterol HCl (Xopenex) 0.63 mg IH [id number] PRN PRN Reason: Shortness of Breath Nicotine (Nicoderm Cq) 1 patch TD DAILY [facility] Last Admin: 04/09/18 09:53 Dose: 1 patch Oseltamivir Phosphate (Tamiflu Cap) 75 mg PO BID [facility]; Protocol Last Admin: 04/09/18 17:44 Dose: 75 mg Pantoprazole Sodium (Protonix Inj) 40 mg IVP 0600,1600 [facility] Last Admin: 04/10/18 05:58 Dose: 40 mg Sucralfate (Carafate Oral Susp) 1 gm PO 0600,1600 [facility] Last Admin: 04/10/18 05:58 Dose: 1 gm - Labs Labs: 04/10/18 07:00 04/10/18 07:00 PT 11.1 SECONDS (9.4-12.5) 04/07/18 20:05 INR 0.97 04/07/18 20:05 APTT 25.1 Seconds (25.1-36.5) 04/07/18 20:05 - Constitutional Appears: Non-toxic, No Acute Distress - Head Exam Head Exam: ATRAUMATIC, NORMOCEPHALIC - Eye Exam Eye Exam: EOMI, PERRL. absent: Scleral icterus Pupil Exam: PERRL. absent: Miosis, Mydriatic - ENT Exam ENT Exam: Mucous Membranes Moist, Normal Oropharynx - Neck Exam Neck Exam: Full ROM, Normal Inspection - Respiratory Exam Respiratory Exam: Clear to Ausculation Bilateral. absent: Rales, Rhonchi, Wheezes - Cardiovascular Exam Cardiovascular Exam: RRR, +S1, +S2. absent: Gallop, Rubs - GI/Abdominal Exam GI & Abdominal Exam: Soft, Normal Bowel Sounds. absent: Distended, Firm, Guarding, Rigid, Tenderness, Organomegaly, Rebound - Neurological Exam Neurological Exam: Alert, Awake - Psychiatric Exam Psychiatric exam: Normal Affect, Normal Mood - Skin Skin Exam: Dry, Intact, Normal Color, Warm - Additional Findings Additional findings: chest wall and ribcage tenderness to palpation Assessment and Plan - Assessment and Plan (Free Text) Assessment: 37 year old female with history of microcytic anemia in setting of menorrhagia, Polysubstance abuse presenting with chest pain. Active treatment of SIRs criteria, CT C/A/P and U/S showed no acute pathology. Recent discharge 03/31 for abdominal pain and anemia requiring transfusion. EGD performed 03/31/18 showed antral superficial linear ulcers <4mm in size (Andreas classification III) and H. pylori negative gastritis. No prior colonoscopy. Plan: -low suspicion for GI infectious process -active cocaine use, last endorsed prior to ER presentation -cocaine may have possible association with leukocytosis, elevated CRP, and elevated temperature -leukocytosis resolved, lactic acid normal -pending repeat procalcitonin and CRP -afebrile over 48 hours, cultures negative to date -continue PPI ACB and sucralfate for PUD on recent EGD -iron deficiency anemia- to reschedule [employer] visit for D&C with history of menorrhagia -atypical chest pain, cardiology managing- follow up recommendations -continue regular diet -patient does not have history of IBD -will follow clinical course <Emanuel Riggs V - Last Filed: 04/10/18 23:43> Objective - Vital Signs/Intake and Output Vital Signs (last 24 hours): Temp Pulse Resp BP Pulse Ox 98.2 F 64 20 121/81 100 04/10/18 14:00 04/10/18 14:00 04/10/18 14:00 04/10/18 14:00 04/10/18 14:00 - Labs Labs: 04/10/18 07:00 04/10/18 07:00 PT 11.1 SECONDS (9.4-12.5) 04/07/18 20:05 INR 0.97 04/07/18 20:05 APTT 25.1 Seconds (25.1-36.5) 04/07/18 20:05 Attending/Attestation - Attestation I have personally seen and examined this patient.: Yes I have fully participated in the care of the patient.: Yes I have reviewed all pertinent clinical information, including history, physical exam and plan: Yes Notes (Text): This is an addendum to GI progress report dictated by the GI Fellow.The patient was seen and examined earlier. Medical records, lab studies, imagings were reviewed. Last 24 hours events reviewed. Agreed with the above treatment plan as outlined in GI Fellow 's notes with the addition of the following Feeling much better Continue antibiotics as per ID less likely GI etiology of sepsis Continue PPI Follow-up hemoglobin Recommended GI follow-up as an outpatient and follow-up with the PCP 04/10/18 23:41
[2018-04-10] MEDS: Enoxaparin 40 mg Syringe SC SCH (09:32)
[2018-04-10] MEDS: HYDROmorphone 0.5 mg/0.5 ml ISec IVP PRN (09:43)
[2018-04-10] MEDS ORDERED: Amoxicillin-Clav 875-125 mg Tab PO SCH (10:00)
--- NOTE | 2018-04-10 10:35 | CP.PCM.PN ---
Subjective - Date & Time of Evaluation Date of Evaluation: 04/10/18 Time of Evaluation: 07:45 - Subjective Subjective: Awake, alert, complaints of slight shortness of breath Reason for consultation and follow up: Cardiac evaluation of chest pain, pre-op evaluation for D&C Seen and examined by me and Dr. Mariscal Objective - Vital Signs/Intake and Output Vital Signs (last 24 hours): Temp Pulse Resp BP Pulse Ox 97.9 F 80 18 131/80 99 04/10/18 06:00 04/10/18 06:00 04/10/18 06:00 04/10/18 06:00 04/10/18 06:00 Intake and Output: 04/10/18 04/10/18 06:59 18:59 Intake Total 3100 Balance 3100 - Medications Medications: Current Medications Amoxicillin/Clavulanate Potassium (Augmentin 875 Mg-125 Mg Tab) 1 tab PO Q12 [facility]; Protocol Stop: 04/15/18 10:01 Last Admin: 04/10/18 09:34 Dose: 1 tab Enoxaparin Sodium (Lovenox) 40 mg SC DAILY [facility]; Protocol Last Admin: 04/10/18 09:32 Dose: 40 mg Gabapentin (Neurontin) 100 mg PO TID [facility]; Protocol Last Admin: 04/10/18 09:32 Dose: 100 mg Hydromorphone HCl (Dilaudid) 0.5 mg IVP Q4H PRN PRN Reason: Pain, moderate (4-7) Last Admin: 04/10/18 09:43 Dose: 0.5 mg Sodium Chloride (Sodium Chloride 0.9%) 1,000 mls @ 150 mls/hr IV .Q6H40M [facility] Last Admin: 04/10/18 05:58 Dose: 150 mls/hr Ibuprofen (Motrin Tab) 400 mg PO Q6H PRN PRN Reason: Pain, moderate (4-7) Levalbuterol HCl (Xopenex) 0.63 mg IH [id number] PRN PRN Reason: Shortness of Breath Nicotine (Nicoderm Cq) 1 patch TD DAILY [facility] Last Admin: 04/10/18 09:32 Dose: 1 patch Oseltamivir Phosphate (Tamiflu Cap) 75 mg PO BID [facility]; Protocol Last Admin: 04/10/18 09:32 Dose: 75 mg Pantoprazole Sodium (Protonix Inj) 40 mg IVP 0600,1600 [facility] Last Admin: 04/10/18 05:58 Dose: 40 mg Sucralfate (Carafate Oral Susp) 1 gm PO 0600,1600 [facility] Last Admin: 04/10/18 05:58 Dose: 1 gm - Labs Labs: 04/10/18 07:00 04/10/18 07:00 PT 11.1 SECONDS (9.4-12.5) 04/07/18 20:05 INR 0.97 04/07/18 20:05 APTT 25.1 Seconds (25.1-36.5) 04/07/18 20:05 - Constitutional Appears: Non-toxic, No Acute Distress - Head Exam Head Exam: NORMAL INSPECTION, NORMOCEPHALIC - Eye Exam Eye Exam: Normal appearance Pupil Exam: NORMAL ACCOMODATION - ENT Exam ENT Exam: Mucous Membranes Moist, Normal Exam - Respiratory Exam Respiratory Exam: Clear to Ausculation Bilateral, NORMAL BREATHING PATTERN - Cardiovascular Exam Cardiovascular Exam: +S1, +S2 Additional comments: No JVD - GI/Abdominal Exam GI & Abdominal Exam: Soft, Normal Bowel Sounds - Extremities Exam Extremities Exam: Full ROM, Normal Capillary Refill - Neurological Exam Neurological Exam: Alert, Awake, Oriented x3 - Psychiatric Exam Psychiatric exam: Normal Affect, Normal Mood - Skin Skin Exam: Dry, Normal Color, Warm Assessment and Plan - Assessment and Plan (Free Text) Assessment: A 37 year old female who came in to the ER due to chest pain. Chest tenderness, no chest pain on exertion. History of anemia due to fibroids/dysfunctional ut erine bleeding taking iron supplement, history of GERD,hypertension, gout, pneumonia/bronchitis. Active smoker, started smoking at the age of 15. Substance abuse, marijuana and coccaine use off and on at least once a week. Atypical chest pain. Troponin normal, EKG-normal sinus rythym, no ischemia, Urine positive for opiates and coccaine. Echo done and showed Normal LV size, LVEF 62%, trace aortic regurgitation,mild mitral /tricuspid regurgitation. Chest tenderness, Motrin given. Low risk for possible D&C. no absolute contraindication. No evidence of ischemia or heart failure. Cleared for proc edure from cardiac standpoint. Plan: Denies chest pain, no distress Slight shortness of breath Xopenex PRN Echo done ,LVEF 62% Troponin normal Cleared for D&C, low risk Chest tenderness, Motrin given On Lovenox 40 mg daily, Motrin 400 mg q 6 hours PRN, Nidocerm patch,Protonix 40 mg IV BID, Gabapentin 100 mg TID Heart rate controlled Blood pressure controlled Continue current treatment Continue current medications Lifestyle modification Smoking cessation Will follow up Plan and treatment discussed with Dr. Mariscal
--- NOTE | 2018-04-10 13:45 | PN ---
DATE: 04/10/2018 SUBJECTIVE: The patient is in bed, in no acute distress, nontoxic. PHYSICAL EXAMINATION: VITAL SIGNS: Temperature is 98, blood pressure is 111/68, heart rate of 55, respiratory rate of 20. HEENT: Unremarkable. NECK: Supple. LUNGS: Have decreased breath sounds. HEART: Normal S1 and S2. ABDOMEN: Soft, nontender. LABORATORY DATA: White count is down to 9.1, hemoglobin of 9, sed rate is 20. Chemistries reveal a BUN of 11, creatinine of 1. Procalcitonin is 1.84. Influenza is negative. Microbiology reveals the blood cultures are negative. Urine cultures are negative. Dr. Adeola Ramirez's progress note from today is reviewed. It states that the patient is low suspicion for GI infectious process. Dr. Suarez has read the echocardiogram yesterday, which is reviewed, which is unremarkable mostly. Dr. Alvarado's progress note from yesterday is also reviewed. ASSESSMENT AND PLAN: A 37-year-old female with systemic inflammatory response syndrome, anemia, hypertension and gout, admitted really with chest pain and fevers and shortness of breath. Pulmonary embolism workup was negative. The patient had a CT angiogram, which was negative. She did have fevers and she did have white count. Etiology of all of this is not entirely clear. Review of the CAT scan of the chest reveals that the patient is unremarkable for pulmonary embolism in the lungs and the CAT scan angiogram reveals no consolidation, no masses, no nodules, unremarkable. The patient also had a CT of the abdomen and pelvis, which was done with intravenous and p.o. contrast. The lower thorax was unremarkable. The kidneys were unremarkable, gallbladder was unremarkable, liver was unremarkable and ovarian cyst was seen. No significant findings on CT of the abdomen and pelvis and blood cultures negative, urine cultures negative from 04/07/2018. On 02/24/2018, she did have a gram-positive cocci and the urine culture was of less than 10,000 colonies of no significance and this morning, the patient's white count is normal. She does continue to be anemic with a hemoglobin of 9 and MCV of 71. The patient did have 5% bandemia and sedimentation rate of 20 and procalcitonin was elevated. The liver function tests were normal and we will order an human immunodeficiency virus test on the patient. The patient did have influenza, which was negative, and did have an human immunodeficiency virus on 03/28/2018, which was negative, that was a fourth generation test from the last admission. We will order an human immunodeficiency virus polymerase chain reaction. I doubt acute human immunodeficiency virus to be responsible with shortness of breath and fever. At this point, the patient is doing better and etiology of the presentation is not entirely clear. We will discontinue the Zosyn since all cultures are negative, blood and urine. CAT scan of the chest is negative, CAT scan of the abdomen is negative and influenza is negative; however, the patient did have an elevated procalcitonin. We will also repeat a procalcitonin this morning. The patient seems to have responded to the Zosyn. We will switch to p.o. Augmentin. Check on human immunodeficiency virus polymerase chain reaction. We will follow closely with you. Gaudencio Serrano MD
[2018-04-10 14:28] VITALS: BP 121/81; PULSE 64; RESP 20; TEMP 98.2; O2SAT 100
--- NOTE | 2018-04-10 18:05 | PN ---
DATE: 04/10/2018 REASON FOR CONSULTATION AND FOLLOWUP: Cardiac evaluation, chest pain, preoperative evaluation for D and C. This note is an addition dictated by nurse practitioner. Chest pain, atypical, is started on ibuprofen. The patient feels a lot better with the tenderness. The patient had echocardiography done yesterday that showed ejection fraction of 62%, RV normal, left atrium mildly dilated, right atrium normal, trace aortic regurgitation, normal mitral valve structure, mild mitral regurgitation, [id number] tricuspid regurgitation, calculated ejection fraction 62%, calculated RVSP 34, history of substance abuse, toxicology screen is positive for cocaine and opiates. RECOMMENDATIONS: The patient is cleared from cardiology point of view to go for dilation and curettage. The chest pain is atypical. Continue deep vein thrombosis prophylaxis. We will discontinue telemetry. Consider stress test as outpatient. Please notify . Okay to discharge. Will consider stress test as an outpatient. Shanell Mariscal MD
--- NOTE | 2018-04-11 20:01 | DS ---
HISTORY OF PRESENT ILLNESS: A 37-year-old female admitted with chest discomfort and some wheezing and coughing. The patent initially was getting steroids one shot, after that the patient has no wheezing. She has been doing well. She is using inhalers at home. The patient is otherwise stable, no cough, no other complaint. The patient had fever initially at 101. Blood culture was done negative, urine culture was negative. CT angio of the chest negative for PE and pneumonia. The patient also had a CT of abdomen and pelvis which is negative for any gallbladder stones or any etiology. Her laboratory escoto was normal including D-dimer and troponin x3, and an echocardiogram was normal, seen by Cardiology, Dr. Mariscal. The patient was also seen by GI, Dr. Riggs and she was cleared for discharge. She was given Tamiflu and was given antibiotic Zosyn first. The patient seems well, seen by ID consult, recommend Augmentin at discharge and will get Tamiflu for a few more days. PHYSICAL EXAMINATION: Normal. VITAL SIGNS: Stable. Temperature 98.2, heart rate 64, blood pressure 120/81, respirations 20, sat 100%. HEAD AND NECK: Normal. No JVD. CHEST: Clear bilaterally. CARDIAC: First sound and second sound normal. ABDOMEN: Soft and nontender. EXTREMITIES: No edema. NEUROLOGIC: Normal. DISCHARGE DIAGNOSES: 1. Inflammatory response syndrome, possible viral. 2. Could be influenza. We will continue Tamiflu and Augmentin p.o. 3. Anemia. 4. History of chronic obstructive pulmonary disease, smoker. Advised to quit. Continue bronchodilators as an outpatient. 5. History of drug use disorder, cocaine and mothball snorting. The patient has a risk of cancer, strokes and any organ infarction with the above medications and advised to stop. PLAN: The patient was advised to see Psychiatry as outpatient and continue all her previous medications. Follow up with the Gynecology. Faisal Alvarado MD
== END 2018-04-10 17:24 | disposition home or self-care (01) | DRG 580 ==
LOC: ED 19:40 → ERH 23:16 → 5RSO 04-08 01:30
PROVIDERS: ADMIT Internal Medicine; ATTEND Internal Medicine
DX: B34.9 Viral infection, unspecified (principal); R65.10 Systemic inflammatory response syndrome (SIRS) of non-infectious origin without acute organ dysfunction; F14.10 Cocaine abuse, uncomplicated; R07.9 Chest pain, unspecified; D25.9 Leiomyoma of uterus, unspecified; D50.9 Iron deficiency anemia, unspecified; F17.210 Nicotine dependence, cigarettes, uncomplicated; I10 Essential (primary) hypertension; K29.70 Gastritis, unspecified, without bleeding; M10.9 Gout, unspecified; K21.9 Gastro-esophageal reflux disease without esophagitis; K50.90 Crohn's disease, unspecified, without complications; Z87.11 Personal history of peptic ulcer disease; Z87.01 Personal history of pneumonia (recurrent); Z87.440 Personal history of urinary (tract) infections; N83.209 Unspecified ovarian cyst, unspecified side; N92.0 Excessive and frequent menstruation with regular cycle; Z79.899 Other long term (current) drug therapy; Z80.0 Family history of malignant neoplasm of digestive organs

== ENCOUNTER 2018-08-26 02:11 | Emergency (ER) | payer SELFPAY ==
[2018-08-26 02:22] VITALS: BMI 29.0
[2018-08-26] MEDS ORDERED: Albuterol-Ipratrop 3 mg / 0.5 (3 ml) UD IH STA (02:23)
[2018-08-26] MEDS ORDERED: Sodium Chloride 0.9% 1,000 ML IV STA (02:24)
--- NOTE | 2018-08-26 02:36 | ED PDOC ---
Arrival/HPI - General Chief Complaint: Flu-like Symptoms Time Seen by Provider: 08/26/18 02:12 Historian: Patient - History of Present Illness Narrative History of Present Illness (Text): 08/26/18 02:37 37 year old female, whose past medical history includes bronchitis, HTN, Gout, Gastritis, and Fibroids, presents to the Emergency department complaining of Flu-like symptoms, since 17:00 yesterday. Patient states she feels her head is very hot. Patient informs her throat and back hurt. Patient informs she took Ibuprofen and half a percocet with little relief. Patient also informs taking a cold bath to lower her temperature. Patient denies any chest pain, dyspnea on exertion, diaphoresis, abdominal pain, nausea, vomiting, diarrhea, neck pain, or any other complaint. PMD: Dr. Alvarado 08/26/18 02:44 Time/Duration: 4-6 hours Symptom Onset: Gradual Symptom Course: Unchanged Quality: Aching Activities at Onset: Light Context: Home Past Medical History - Provider Review Nursing Documentation Reviewed: Yes - Past History Past History: No Previous - Infectious Disease Hx of Infectious Diseases: None - Tetanus Immunization Tetanus Immunization: Unknown - Past Medical History Past Medical History: No Previous - Cardiac Hx Cardiac Disorders: No Hx Angina: No Hx Cardiac Arrhythmia: No Hx Circulatory Problems: No Hx Congestive Heart Failure: No Hx Heart Murmur: No Hx Heart Transplant: No Hx Hypertension: Yes Hx Internal Defibrillator: No Hx Mitral Valve Prolapse: No Hx Pacemaker: No Hx Peripheral Edema: No Hx Peripheral Vascular Disease: No - Pulmonary Hx Respiratory Disorders: No Hx Asthma: No Hx Bronchitis: No Hx Chronic Obstructive Pulmonary Disease (COPD): No Hx Emphysema: No Hx Pneumonia: No Hx Respiratory Aspiration: No Hx Respiratory Tract Infection: No Hx Sleep Apnea: No Hx Tuberculosis: No - Neurological Hx Neurological Disorder: No Hx Alzheimer's Disease: No HX Cerebrovascular Accident: No Hx Dementia: No Hx Dizziness: No Hx Meningitis: No Hx Migraine: No Hx Parkinson's Disease: No Hx Seizures: No Hx Transient Ischemic Attacks (TIA): No - HEENT Hx HEENT Disorder: No Hx Blind: No Hx Cataracts: No Hx Deafness: No Hx Difficulty Chewing: No Hx Epistaxis: No Hx Glaucoma: No Hx Macular Degeneration: No - Renal Hx Renal Disorder: No Hx Dialysis: No Hx Kidney Stones: No Hx Neurogenic Bladder: No Hx Pyelonephritis: No Hx Renal Cancer: No Hx Renal Failure: No - Endocrine/Metabolic Hx Endocrine Disorders: No Hx Adrenal Cancer: No Hx Diabetes Insipidus: No Hx Diabetes Mellitus Type 1: No Hx Diabetes Mellitus Type 2: No Hx Hyperthyroidism: No Hx Hypothyroidism: No Hx Systemic Lupus Erythematosus: No - Hematological/Oncological Hx Blood Disorders: No Hx AIDS: No Hx Anemia: Yes Hx Cancer: No Hx Chemotherapy: No Hx Cirrhosis: No Hx Hemophilia: No Hx Hepatitis A: No Hx Hepatitis B: No Hx Hepatitis C: No Hx Metastasis: No Hx Shingles: No Hx Sickle Cell Disease: No Hx Unexplained Bleeding: No - Integumentary Hx Dermatological Disorder: No Hx Basal Cell Carcinoma: No Hx Eczema: No Hx Melanoma: No Hx Psoriasis: No Hx Squamous Cell Carcinoma: No - Musculoskeletal/Rheumatological Hx Musculoskeletal Disorders: No Hx Arthritis: No Hx Back Pain: No Hx Degenerative Joint Disease: No Hx Falls: No Hx Fractures: No Hx Gout: No Hx Herniated Disk: No Hx Myasthenia Gravis: No Hx Osteoarthritis: No Hx Osteomyelitis: No Hx Osteoporosis: No Hx Rhabdomyolysis: No Hx Spinal Stenosis: No Hx Unsteady Gait: No - Gastrointestinal Hx Gastrointestinal Disorders: No Hx Colostomy: No Hx Crohn's Disease: Yes Hx Diverticulitis: No Hx Gall Bladder Disease: No Hx Gastroesophageal Reflux: No Hx Ileostomy: No Hx Liver Failure: No Hx Pancreatitis: No HX Swallowing Problems: No - Genitourinary/Gynecological Hx Genitourinary Disorders: Yes Hx Hematuria: No Hx Incontinence: No Hx Sexually Transmitted Diseases: No Hx Urinary Tract Infection: Yes - Psychiatric Hx Psychophysiologic Disorder: No Hx Anxiety: No Hx Bipolar Disorder: No Hx Depression: No Hx Emotional Abuse: No Hx Hallucinations: No Hx Panic Disorder: No Hx Post Traumatic Stress Disorder: No Hx Psychosis: No Hx Physical Abuse: No Hx Schizophrenia: No Hx Sexual Abuse: No Hx Substance Use: No - Past Surgical History Past Surgical History: No Previous - Surgical History Hx Cardiac Catheterization: No Hx Coronary Stent: No - Anesthesia Hx Anesthesia Reactions: No Hx Malignant Hyperthermia: No - Suicidal Assessment Feels Threatened In Home Enviroment: No Family/Social History - Physician Review Nursing Documentation Reviewed: Yes Family/Social History: No Known Family HX Smoking Status: Heavy Smoker > 10 Cigarettes Daily Hx Alcohol Use: Yes Hx Substance Use: No Substance used: cocaine Hx Substance Use Treatment: Yes Allergies/Home Meds Allergies/Adverse Reactions: Allergies coconut oil Allergy (Verified 08/26/18 02:22) ANAPHYLAXIS calixto Allergy (Verified 08/26/18 02:22) ANAPHYLAXIS Home Medications: Home Meds Medication Instructions Recorded Confirmed Docusate Sodium [Fontanez' 100 mg PO DAILY 08/26/18 08/26/18 Laxative] Review of Systems - Physician Review All systems were reviewed & negative as marked: Yes - Review of Systems Constitutional: Fevers ENT: Sore Throat Cardiovascular: absent: Chest Pain, OROZCO Gastrointestinal: absent: Abdominal Pain, Diarrhea, Nausea, Vomiting Musculoskeletal: Back Pain. absent: Neck Pain Physical Exam Vital Signs Reviewed: Yes Vital Signs Temp Pulse Resp BP Pulse Ox 08/26/18 02:24 101.2 F H 08/26/18 02:19 100.7 F H 98 H 18 134/56 L 100 Temperature: Febrile Blood Pressure: Hypotensive Pulse: Tachycardic Respiratory Rate: Normal Appearance: Positive for: Well-Appearing, Non-Toxic, Comfortable Pain Distress: None Mental Status: Positive for: Alert and Oriented X 3 - Systems Exam Head: Present: Atraumatic, Normocephalic Pupils: Present: PERRL Extroacular Muscles: Present: EOMI Conjunctiva: Present: Normal Mouth: Present: Moist Mucous Membranes Pharnyx: Present: ERYTHEMA (Noted to the soft palate), Other (Bilateral tonsillar swelling) Neck: Present: Normal Range of Motion Respiratory/Chest: Present: Clear to Auscultation, Good Air Exchange. No: Respiratory Distress, Accessory Muscle Use Cardiovascular: Present: Regular Rate and Rhythm, Normal S1, S2. No: Murmurs Abdomen: No: Tenderness, Distention, Peritoneal Signs Back: Present: Normal Inspection Upper Extremity: Present: Normal Inspection. No: Cyanosis, Edema Lower Extremity: Present: Normal Inspection. No: Edema Neurological: Present: GCS=15, CN II-XII Intact, Speech Normal Skin: Present: Warm, Dry, Normal Color. No: Rashes Psychiatric: Present: Alert, Oriented x 3, Normal Insight, Normal Concentration Medical Decision Making ED Course and Treatment: 08/26/18 02:43 Impression: 38 year old female presents with flu-like symptoms. Plan: -- VBG Shock Panel -- CMP, Mg, BNP -- Chest X-ray -- Duoneb -- Toradol -- Solumedrol -- Reglan -- Blood cultures -- Rapid Strep -- Rapid Flu -- Urinalysis -- Reassess and disposition Prior Visits: Notes and results from previous visits were reviewed. Progress Notes: - Lab Interpretations Lab Results: 08/26/18 02:30 08/26/18 02:30 Lab Results 08/26/18 02:32: Urine Color Yellow, Urine Appearance Clear, Urine pH 6.0, Ur Specific [place] 1.025, Urine Protein Negative, Urine Glucose (UA) Negative, Urine Ketones Negative, Urine Blood Trace-lysed H, Urine Nitrate Negative, Urine Bilirubin Negative, Urine Urobilinogen 0.2, Ur Leukocyte Esterase Negative, Urine RBC 0 - 2, Urine WBC 1 - 3, Ur Epithelial Cells Many H, Urine Bacteria Trace 08/26/18 02:30: Grp A Beta Strep Ag Negative 08/26/18 02:30: Influenza Typ A,B (EIA) Negative for flu a/b 08/26/18 02:30: pO2 82 H, VBG pH 7.42, VBG pCO2 37.0 L, VBG HCO3 24.0, VBG Total CO2 25.1, VBG O2 Sat (Calc) 98.3 H, VBG Base Excess -0.2 L, VBG Potassium 4.4, Sodium 135.0, Chloride 104.0, Glucose 105, Lactate 1.0, FiO2 21.0, Venous Blood Potassium 4.4 08/26/18 02:30: Sodium 134, Chloride 104, Potassium 4.1, Carbon Dioxide 23, Anion Gap 11, BUN 12, Creatinine 1.0, Est GFR ( Amer) > 60, Est GFR (Non- Af Amer) > 60, Random Glucose 99, Calcium 9.1, Magnesium 1.7, Total Bilirubin 0.4, AST 27, ALT 16, Alkaline Phosphatase 44, NT-Pro-B Natriuret Pep 31.7, Total Protein 7.6, Albumin 4.1, Globulin 3.5, Albumin/Globulin Ratio 1.2 08/26/18 02:30: WBC 10.8, RBC 4.37, Hgb 10.7 L, Hct 34.3 L, MCV 78.5 L D, MCH 24.5 L, MCHC 31.2, RDW 15.1 H, Plt Count 317, MPV 10.1, Neut % (Auto) 81.5 H, Lymph % (Auto) 10.7 L, [place] % (Auto) 7.3 H, Eos % (Auto) 0.3 L, Baso % (Auto) 0.2, Lymph # (Auto) 1.2, [place] # (Auto) 0.8 H, Eos # (Auto) 0.0, Baso # (Auto) 0.02, Absolute Neuts (auto) 8.80 H I have reviewed the lab results: Yes - RAD Interpretation Radiology Orders: 08/26/18 02:23 CHEST PORTABLE [RAD] Stat - Medication Orders Current Medication Orders: Sodium Chloride (Sodium Chloride 0.9%) 1,000 mls @ 999 mls/hr IV .Q1H1M STA Stop: 08/26/18 03:24 Discontinued Medications Albuterol/Ipratropium (Duoneb 3 Mg/0.5 Mg (3 Ml) Ud) 3 ml IH STAT STA Stop: 08/26/18 02:24 Methylprednisolone (Solu-Medrol) 125 mg IVP STAT STA Stop: 08/26/18 02:26 - Scribe Statement The provider has reviewed the documentation as recorded by the David Willard Provider Scribe Attestation: All medical record entries made by the Scribe were at my direction and personally dictated by me. I have reviewed the chart and agree that the record accurately reflects my personal performance of the history, physical exam, medical decision making, and the department course for this patient. I have also personally directed, reviewed, and agree with the discharge instructions and disposition. Disposition/Present on Arrival - Present on Arrival Any Indicators Present on Arrival: No History of DVT/PE: No History of Uncontrolled Diabetes: No Urinary Catheter: No History of Decub. Ulcer: No History Surgical Site Infection Following: None - Disposition Have Diagnosis and Disposition been Completed?: Yes Diagnosis: Bronchitis Disposition: HOME/ ROUTINE Disposition Time: 04:55 Patient Plan: Discharge Condition: GOOD Discharge Instructions (ExitCare): Acute Bronchitis, Adult (DC) Print Language: BENINESE Additional Instructions: All medical record entries made by the Scribe were at my direction and personally dictated by me. I have reviewed the chart and agree that the record accurately reflects my personal performance of the history, physical exam, medic al decision making, and the department course for this patient. I have also personally directed, reviewed, and agree with the discharge instructions and disposition. Please take your medications as prescribed Please follow up with your PCP in 3-5 days Prescriptions: Albuterol 0.083% [Albuterol Sulfate 3 Ml] 3 ml IH Q4H #3 neb Albuterol HFA [Ventolin HFA 90 mcg/actuation (8 g)] 200 puff IH Q4H #2 puff Azithromycin [Z-Josemanuel] 250 mg PO DAILY #6 tab Ipratropium 0.02% [Atrovent] 2.5 ml IH Q6H #3 neb Methylprednisolone [Medrol Dose Pack (21 tabs)] 4 mg PO DAILY #21 mg Referrals: Faisal Alvarado MD [Primary Care Provider] - Follow up with primary Forms: [employer] ([place]), WORK NOTE
[2018-08-26 03:01] LABS: VENOUS BLOOD GAS BASE EXCESS -0.2 mmol/L (0.0-2.0); VENOUS BLOOD GAS PO2 82 mm/Hg (30-55); VENOUS BLOOD PH 7.42 (7.32-7.43)
[2018-08-26 03:03] LABS: ALB/GLOB RATIO 1.2 (1.1-1.8); ALBUMIN 4.1 g/dL (3.0-4.8); ALT/SGPT 16 U/L (7-56); AST/SGOT 27 U/L (14-36); BLOOD UREA NITROGEN 12 mg/dL (7-21); CALCIUM 9.1 mg/dL (8.4-10.5); GFR NON-AFRICAN AMERICAN > 60
[2018-08-26 03:05] LABS: URINE BILIRUBIN NEGATIVE (NEGATIVE); URINE BLOOD TRACE-LYSED (NEGATIVE); URINE GLUCOSE (UA) NEGATIVE (NEGATIVE); URINE LEUKOCYTE ESTERASE NEGATIVE Leu/uL (NEGATIVE); URINE PROTEIN NEGATIVE mg/dL (<30 mg/dL); URINE UROBILINOGEN 0.2 E.U./dL (<1 E.U./dL)
[2018-08-26 03:06] LABS: URINE APPEARANCE CLEAR (CLEAR); URINE COLOR YELLOW (YELLOW)
[2018-08-26 03:06] LABS: BASO # 0.02 K/mm3 (0.0-2.0); BASO % 0.2 % (0.0-3.0); EOS % 0.3 % (1.5-5.0); HEMOGLOBIN 10.7 g/dL (12.0-16.0); LYMPH # 1.2 (1.2-3.4); LYMPH % 10.7 % (22.0-35.0); MEAN CORPUSCULAR HEMOGLOBIN 24.5 pg (25.0-35.0); MEAN CORPUSCULAR HGB CONC 31.2 g/dl (31.0-37.0); MEAN PLATELET VOLUME 10.1 fl (7.0-11.0); MONO # 0.8 (0.1-0.6); MONO % 7.3 % (1.0-6.0); RBC 4.37 10^6/uL (3.5-6.1); RED CELL DISTRIBUTION WIDTH 15.1 % (11.5-14.5); WHITE BLOOD COUNT 10.8 10^3/uL (4.5-11.0)
[2018-08-26 03:08] LABS: MEAN CELL VOLUME 78.5 fl (80.0-105.0)
[2018-08-26 03:11] LABS: B-TYPE NATRIURETIC PEPTIDE 31.7 pg/mL (0-450)
[2018-08-26 03:23] LABS: URINE BACTERIA TRACE /hpf; URINE EPITHELIAL CELLS MANY /hpf (0-5); URINE RBC 0 - 2 /hpf (0-2)
[2018-08-26 05:26] VITALS: BP 127/64; PULSE 72; RESP 15; TEMP 98.9; O2SAT 98
--- NOTE | 2018-08-26 09:11 | RAD ---
Date of service: 08/26/2018 HISTORY: sob COMPARISON: 04/07/2018. FINDINGS: LUNGS: The lungs are well inflated and clear. PLEURA: No pleural effusions or pneumothorax. CARDIOVASCULAR: The heart is normal in size. No aortic atherosclerotic calcifications present. OSSEOUS STRUCTURES: Within normal limits for the patient's age. VISUALIZED UPPER ABDOMEN: Normal. OTHER FINDINGS: None. IMPRESSION: No active pulmonary disease.
== END 2018-08-26 05:20 | disposition home or self-care (01) ==
LOC: ED 02:11
DX: J40 Bronchitis, not specified as acute or chronic (principal); I10 Essential (primary) hypertension; F17.210 Nicotine dependence, cigarettes, uncomplicated
CPT/HCPCS: 71045; 80053; 81001; 81025; 82803; 83735; 83880; 84702; 85025; 87040; 87070; 87430; 87804; 96361; 96374; 96375; 99284; J1885; J2765; J2930; J7030